=== PATIENT | male | born 1935 | race Caucasian/White ===

== ENCOUNTER 2016-05-27 11:34 | Emergency (ER) | payer MEDICARE, OTHER ==
[2016-05-27 11:51] VITALS: BP 138/67
--- NOTE | 2016-05-27 12:39 | EDM.PDOC ---
ED HPI HEADACHE COMPLAINT - General Chief Complaint: Headache Stated Complaint: Headache Time Seen by Provider: 05/27/16 12:00 Source of Information: Reports: Patient, Family, RN notes reviewed History Limitations: Reports: No limitations - History of Present Illness INITIAL COMMENTS - FREE TEXT/NARRATIVE: 81 year old male presents to the ED today with complaints of a two day history of headache. The headache started as a frontal headache and has moved to the left jehovah's witness. The left jehovah's witness is somewhat tender to touch. He does not usually experience headaches. He reports loss of vision on the right side only when looking at the TV. He says "There is 3 people standing there and the 3rd one on the right 'falls off.'" He describes this loss of vision on the right as intermittent and only when looking at the TV. I asked him various questions to get a better understanding of this but he is unable to offer any additional description or explanation. These vision changes started with the onset of the headache. He denies photophobia or phonophobia. He denies neck pain, fever, chills, body aches. No jaw pain. No weakness in extremities. He has no slurred speech, facial droop, or confusion according to patient or family. He had spinal surgery approximately [address] Barry in [place] for spinal stenosis. He has back pain located to the incision site and has intermittent radiation down his left leg which is not new. He also reports that his left leg will occasionally "stop working." This has been going on for quite some time related to his spinal stenosis. He has a follow-up appointment with his surgeon on 06/16/16. - Related Data Allergies/ADRs: Allergies Allergy/AdvReac Type Severity Reaction Status Date / Time codeine Allergy Other Verified 05/27/16 11:47 venom-honey bee Allergy Anaphylactic Verified 05/27/16 11:47 [bee venom (honey bee)] Shock venom-wasp [wasp venom] Allergy Itching Verified 05/27/16 11:47 Home Meds: Home Meds Aspirin [Adult Low Dose Aspirin EC] 81 mg PO DAILY 05/23/14 [History] Fish Oil/[place]-3 Fatty Acids [Fish Oil] 1 tab PO DAILY 05/23/14 [History] Multivitamin [Multivitamins] 1 tab PO DAILY 05/23/14 [History] Nitroglycerin [Nitrostat] 0.4 mg SL ASDIRECTED PRN 05/23/14 [History] Metoprolol Succinate [Toprol XL] 25 mg PO DAILY 07/18/14 [History] Aspirin [Halfprin] 81 mg PO DAILY 09/19/14 [History] Simvastatin [Zocor] 20 mg PO BEDTIME 09/19/14 [History] Acetaminophen [Tylenol Arthritis] 650 mg PO Q4H PRN 05/27/16 [History] Hydrocodone/Acetaminophen [Hydrocodon-Acetaminophen 5-325] 5 - 325 mg PO Q6H [History] predniSONE [Prednisone] 40 mg PO ASDIRECTED #10 tablet 05/27/16 [Rx] Past Medical History HEENT History: Reports: Cataract Cardiovascular History: Reports: Stents Musculoskeletal History: Reports: Back pain, chronic - Past Surgical History HEENT Surgical History: Reports: Tonsillectomy Social & Family History - Tobacco Use Smoking Status *Q: Never Smoker Used Tobacco, but Quit: No Month Tobacco Last Used: 20 - Recreational Drug Use Recreational Drug Use: No ED ROS GENERAL - Review of Systems Review Of Systems: See Below Constitutional: Reports: no symptoms. Denies: fever, chills HEENT: Reports: Vision change. Denies: Sinus problem, Vertigo Respiratory: Reports: No Symptoms. Denies: Shortness of Breath Cardiovascular: Reports: No symptoms. Denies: Chest pain GI/Abdominal: Reports: No symptoms. Denies: Abdominal pain, Nausea, Vomiting : Reports: no symptoms. Denies: incontinence Musculoskeletal: Reports: back pain. Denies: neck pain Neurological: Reports: Headache, Difficulty Walking (chronic - no new changes. recent surgery ), Weakness (left leg - chronic ). Denies: Confusion, Dizziness , Numbness, Tingling, Trouble Speaking - Physical Exam Exam: See Below Exam Limited By: No limitations General Appearance: alert, WD/WN, no apparent distress Eye Exam: right eye: vision changes (the patient describes loss of vision on right side, this is described as intermittent when watching TV. On exam today his peripheral vision is intact and symmetrical), bilateral eye: EOMI, normal inspection, PERRL Throat/Mouth: Normal inspection, Normal oropharynx, No airway compromise Head Exam: atraumatic, normocephalic Neck: normal inspection, supple, non-tender, full range of motion, other (no nuchal rigidity, active ROM without pain). No: tender midline Respiratory/Chest: no respiratory distress, lungs clear, normal breath sounds Cardiovascular: regular rate, rhythm Neuro Exam (Abbreviated): alert, oriented, normal cognition, no motor/sensory deficits, other (upper extremity strength is equal bilaterally. He has no facial droop. Speech is normal. Gait was not observed. He is ambulating with a walker. By history, his gait is unchanged. No tongue deviation. On palpation, he has tenderness over the left jehovah's witness. No unilateral changes on pulsation appreciated. ) Back Exam: other (surgical incision without signs of infection.) Psychiatric: flat affect Skin Exam: Warm, Dry, Intact Course - Vital Signs Last Recorded V/S: Last Vital Signs Temp 97.5 F 05/27/16 11:47 Pulse 75 05/27/16 11:47 Resp 18 05/27/16 11:47 BP 138/67 05/27/16 11:47 Pulse Ox 95 05/27/16 11:47 - Orders/Labs/Meds Orders: Active Orders 24 hr Category Date Time Status Vision Test [RC] ASDIRECTED Care 05/27/16 12:47 Active Labs: Laboratory Tests 05/27/16 05/27/16 05/27/16 Range/Units 12:36 12:36 12:36 WBC 8.36 (4.23-9.07) K/mm3 RBC 3.85 L (4.63-6.08) M/mm3 Hgb 12.0 L (13.7-17.5) gm/L Hct 37.8 L (40.1-51.0) % MCV 98.2 H (79.0-92.2) fl MCH 31.2 (25.7-32.2) pg MCHC 31.7 L (32.2-35.5) g/dl RDW Std Deviation 48.2 H (35.1-43.9) fL Plt Count 424 H (163-337) K/mm3 MPV 8.6 L (9.4-12.3) fl Neutrophils % (Manual) 69 H (40-60) % Band Neutrophils % 3 (0-10) % Lymphocytes % (Manual) 21 (20-40) % Atypical Lymphs % 0 % Monocytes % (Manual) 4 (2-10) % Eosinophils % (Manual) 3 (0.8-7.0) % Basophils % (Manual) 0 L (0.2-1.2) Platelet Estimate Adequate RBC Morph Comment Normal ESR 48 H (0-15) mm/hr C-Reactive Protein 1.9 H* (<1.0) mg/dL Meds: Medications Discontinued Medications Generic Name Dose Route Start Last Admin Trade Name Emanuel PRN Reason Stop Dose Admin Hydrocodone Bitart/Acetaminophen 1 tab 05/27/16 13:20 05/27/16 13:24 [place] 325-5 Mg PO 05/27/16 13:21 1 tab ONETIME ONE Administration - Re-Assessments/Exams Free Text/Narrative Re-Assessment/Exam: CT of the head was read by Dr. Rodriguez. No acute findings appreciated. Please see full report Labs reveal a normal WBC. ESR is elevated at 48 and CRP at 1.9 which is non- specific and expected considering he is 1 week post-op. 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 Biopsy is required for definitive diagnosis. I called and spoke to Neurologist pallet stone inserter, Dr. Phan, at [facility]. He recommends temporal artery biopsy within the next 1-2 weeks. He recommends prednisone 40mg every other day. He also recommends full fundoscopic exam. I then called and spoke to our general surgeon pallet stone inserter, Dr. Mancera, who performs outpatient temporal artery biopsy. She recommends biopsy within the next 1-2 weeks. We were able to schedule this for June 08, at 4:15 pm. I then called and spoke to the patient's PCP Dr. Eden Collier. She is agreeable with the plan of care including biopsy and prednisone 40mg every other day. The patient has an upcoming appointment with her next Tuesday so she will follow-up at that time. I will fax her a copy of today's records for her review. I thoroughly explained the suspected diagnosos, medication, and return precautions with the patient and his . Their daughter Kimberley was here earlier but left prior to test results. I phoned her and went over all the information with her as well. I strongly encouraged them to see their eye doctor [facility] for fundoscopic exam. I answered their questions to the best of my ability. This case and plan of care was supervised by ED Physician Dr. Gonzales. Departure - Departure Time of Disposition: 14:08 Disposition: Home, Self-Care 01 Condition: good Clinical Impression: Headache Qualifiers: Headache type: unspecified Headache chronicity pattern: acute headache Intractability: not intractable Qualified Code(s): R51 - Headache Prescriptions: predniSONE [Prednisone] 40 mg PO ASDIRECTED #10 tablet Instructions: General Headache Without Cause Referrals: Eden Collier MD [Primary Care Provider] - Forms: ED Department Discharge Additional Instructions: Your symptoms are concerning for the diagnosis of Temporal Arteritis. However, diagnosis is dependant on biopsy of the temporal artery. Follow-up with Dr. Collier next Tuesday as scheduled Prednisone 40mg every other day. Take first dose right away today. Then take in the morning starting on Tuesday. Your biopsy is scheduled for Wednesday June 08, [address] Mancera at the [facility] [place] here in [place]. Arrival to the [facility] [place] at 4:15 pm. Nothing to eat or drink after 8am the day of your biopsy. See your eye doctor as soon as possible for an eye exam. Return to ER with worsening headache, slurred speech, confusion, or any additional concerns. Continue hydrocodone as prescribed. - My Orders Last 24 Hours: My Active Orders 05/27/16 12:47 Vision Test [RC] ASDIRECTED - Assessment/Plan Last 24 Hours: My Active Orders 05/27/16 12:47 Vision Test [RC] ASDIRECTED
--- NOTE | 2016-05-27 13:16 | CT ---
Head CT Technique: Multiple axial sections through the brain were obtained. Intravenous contrast was not utilized. Comparison: No previous study. Findings: Ventricles along basal cisterns and sulci convexities are moderately prominent. Mild areas of diminished density is noted within the periventricular and subcortical white matter which is compatible with small vessel ischemic demyelination change. 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 Atrophy also noted within the cerebellum. No other abnormal parenchymal densities are seen. No evidence of intracranial hemorrhage. No midline shift or mass effect is seen. Atherosclerotic calcification is seen within the carotid siphon. Bone window settings were reviewed which shows the visualized sinuses to appear clear. No acute calvarial abnormality is seen. Previous rosa hole is noted within the right side. Impression: 1. Senescent change as described above. Previous surgery with bur hole on the right side. 2. Nothing acute is identified at this time on noncontrast head CT exam. Diagnostic code #2
[2016-05-27] MEDS ORDERED: Acetaminophen/HYDROcodone 325-5 MG Tab PO ONE (13:20)
== END 2016-05-27 14:38 | disposition home or self-care (01) ==
LOC: JD.ED 11:34
DX: R51 Headache (principal); Z95.5 Presence of coronary angioplasty implant and graft; Z98.890 Other specified postprocedural states; Z79.82 Long term (current) use of aspirin; Z79.899 Other long term (current) drug therapy; Z88.5 Allergy status to narcotic agent; Z91.030 Bee allergy status
CPT/HCPCS: 36415; 70450; 85025; 85652; 86140; 99284; A9270; 99283

== ENCOUNTER 2018-06-09 00:56 | Inpatient (IN) | payer MEDICARE, OTHER ==
[2018-06-09] MEDS ORDERED: Sodium Chloride 0.9% 10 ML Syringe FLUSH PRN (01:24)
[2018-06-09] MEDS ORDERED: Albuterol/Ipratropium 3.0-0.5 MG/3 ML Neb Soln NEB ONE (01:26)
[2018-06-09] MEDS ORDERED: cefTRIAXone 2 GM in Sodium Chloride 0.9% 100 ML IV ONE (01:28)
--- NOTE | 2018-06-09 02:52 | EDM.PDOC ---
ED HPI GENERAL MEDICAL PROBLEM - General Chief Complaint: Respiratory Problem Stated Complaint: FEVER/COLD SYMPTOMS Time Seen by Provider: 06/09/18 01:17 Source of Information: Reports: Patient, Family History Limitations: Reports: No Limitations - History of Present Illness INITIAL COMMENTS - FREE TEXT/NARRATIVE: The patient presents with a cough, congestion, runny nose, fever and shortness of breath. This has been going on for a few days and he was seen at the walk in clinic yesterday. They checked him for influenza and that was negative. The did a CXR and that looked good. They did start him on levaquin for suspected pneumonia. He continued to have a temperature this evening and shortness of breath. When arrived here his oxygen saturations were 86%. He does not have any history of asthma or COPD. He denies chest pain, abdominal pain, nausea or vomiting. Onset: Gradual Duration: Day(s): Severity: Moderate Improves with: Reports: None Worsens with: Reports: None Associated Symptoms: Reports: Cough, Fever/Chills, Shortness of Breath. Denies : Chest Pain, Headaches, Nausea/Vomiting - Related Data Allergies Allergy/AdvReac Type Severity Reaction Status Date / Time codeine Allergy Other Verified 06/09/18 01:04 venom-honey bee Allergy Anaphylactic Verified 06/09/18 01:04 [bee venom (honey bee)] Shock venom-wasp [wasp venom] Allergy Itching Verified 06/09/18 01:04 Home Meds: Home Meds Fish Oil/[place]-3 Fatty Acids [Fish Oil] 1,200 mg PO DAILY 05/23/14 [History] Aspirin [Halfprin] 81 mg PO DAILY 09/19/14 [History] Simvastatin [Zocor] 40 mg PO BEDTIME 09/19/14 [History] Metoprolol Succinate 25 mg PO DAILY 06/09/18 [History] Warfarin [Coumadin] 2.5 mg PO SUTUWETHSA 06/09/18 [History] Warfarin [Coumadin] 5 mg PO MOFR 06/09/18 [History] levoFLOXacin [Levaquin] 750 mg PO DAILY 06/09/18 [History] Past Medical History HEENT History: Reports: Cataract Cardiovascular History: Reports: Afib, Stents Respiratory History: Reports: Sleep Apnea Gastrointestinal History: Reports: Other (See Below) Other Gastrointestinal History: Inguinal hernia Musculoskeletal History: Reports: Back Pain, Chronic Neurological History: Reports: Other (See Below) Other Neuro History: Brain bleed - Past Surgical History HEENT Surgical History: Reports: Cataract Surgery, Tonsillectomy Social & Family History - Tobacco Use Smoking Status *Q: Never Smoker - Recreational Drug Use Recreational Drug Use: No ED ROS GENERAL - Review of Systems Review Of Systems: See Below Constitutional: Reports: Fever, Chills HEENT: Reports: Other (Congestion and runny nose) Respiratory: Reports: Cough Cardiovascular: Reports: No Symptoms Endocrine: Reports: No Symptoms GI/Abdominal: Reports: No Symptoms, Mucous in Stool Musculoskeletal: Reports: No Symptoms ED EXAM, GENERAL - Physical Exam Exam: See Below Exam Limited By: No Limitations General Appearance: Alert, No Apparent Distress Ears: Normal External Exam Nose: Normal Inspection Head: Atraumatic, Normocephalic Neck: Normal Inspection Respiratory/Chest: No Respiratory Distress, Decreased Breath Sounds, Rhonchi Cardiovascular: Regular Rate, Rhythm, No Edema, No Murmur GI/Abdominal: Soft, Non-Tender, No Organomegaly, No Mass Back Exam: Normal Inspection Extremities: Normal Inspection Neurological: Alert, Oriented, No Motor/Sensory Deficits Course - Vital Signs Last Recorded V/S: Last Vital Signs Temp 99.9 F 06/09/18 01:04 Pulse 78 06/09/18 01:04 Resp 18 06/09/18 01:04 BP 120/53 L 06/09/18 01:04 Pulse Ox 94 L 06/09/18 01:32 - Orders/Labs/Meds Orders: Active Orders 24 hr Category Date Time Status Oxygen Therapy [RC] PRN Care 06/09/18 01:24 Active Peripheral IV Care [RC] . DIRECTED Care 06/09/18 01:26 Active RT Aerosol Therapy [RC] ASDIRECTED Care 06/09/18 01:26 Active Chest 1V Frontal [CR] Stat Exams 06/09/18 01:24 Taken C-REACTIVE PROTEIN [CHEM] Urgent Lab 06/09/18 01:35 Results COMPREHENSIVE METABOLIC PN,CMP [CHEM] Urgent Lab 06/09/18 01:35 Results CULTURE BLOOD [BC] Stat Lab 06/09/18 01:35 Received CULTURE BLOOD [BC] Stat Lab 06/09/18 01:45 Received MYCOPLASMA PNEUMONIAE IGM AB [CHEM] Stat Lab 06/09/18 01:35 Results Sodium Chloride 0.9% [Saline Flush] Med 06/09/18 01:24 Active 10 ml FLUSH ASDIRECTED PRN Blood Culture x2 Reflex Set [OM.PC] Stat Ot 06/09/18 01:24 Ordered Peripheral IV Insertion Adult [OM.PC] Stat Ot 06/09/18 01:24 Ordered Medication Orders Sodium Chloride (Saline Flush) 10 ml FLUSH ASDIRECTED PRN PRN Reason: Keep Vein Open Last Admin: 06/09/18 01:38 Dose: 10 ml Labs: Laboratory Tests 06/09/18 06/09/18 06/09/18 Range/Units 01:35 01:35 01:35 WBC 9.71 H (4.23-9.07) K/mm3 RBC 4.39 L (4.63-6.08) M/mm3 Hgb 13.5 L D (13.7-17.5) gm/L Hct 41.8 (40.1-51.0) % MCV 95.2 H (79.0-92.2) fl MCH 30.8 (25.7-32.2) pg MCHC 32.3 (32.2-35.5) g/dl RDW Std Deviation 47.4 H (35.1-43.9) fL Plt Count 218 (163-337) K/mm3 MPV 9.0 L (9.4-12.3) fl Neut % (Auto) 70.9 H (34.0-67.9) % Lymph % (Auto) 16.1 L (21.8-53.1) % [place] % (Auto) 12.2 (5.3-12.2) % Eos % (Auto) 0.5 L (0.8-7.0) Baso % (Auto) 0.1 (0.1-1.2) % Neut # (Auto) 6.89 H (1.78-5.38) K/mm3 Lymph # (Auto) 1.56 (1.32-3.57) K/mm3 [place] # (Auto) 1.18 H (0.30-0.82) K/mm3 Eos # (Auto) 0.05 (0.04-0.54) K/mm3 Baso # (Auto) 0.01 (0.01-0.08) K/mm3 PT 26.9 H (9.5-12.1) SECONDS INR 2.51 Sodium 135 L (136-145) mEq/L Potassium 4.0 (3.5-5.1) mEq/L Chloride 101 (98-107) mEq/L Carbon Dioxide 26 (21-32) mEq/L Anion Gap 12.0 (5-15) BUN 21 H (7-18) mg/dL Creatinine 1.2 (0.7-1.3) mg/dL Est Cr Clr Drug Dosing TNP Estimated GFR (MDRD) 58 (>60) mL/min BUN/Creatinine Ratio 17.5 (14-18) Glucose 130 H (83-115) mg/dL Lactic Acid (0.4-2.0) mmol/L Calcium 8.7 (8.5-10.1) mg/dL Total Bilirubin 0.9 (0.2-1.0) mg/dL AST 38 H (15-37) U/L ALT 36 (16-63) U/L Alkaline Phosphatase 80 (46-116) U/L C-Reactive Protein 2.2 H* (<1.0) mg/dL Total Protein 6.9 (6.4-8.2) g/dl Albumin 3.5 (3.4-5.0) g/dl Globulin 3.4 gm/dL Albumin/Globulin Ratio 1.0 (1-2) 06/09/18 Range/Units 01:35 WBC (4.23-9.07) K/mm3 RBC (4.63-6.08) M/mm3 Hgb (13.7-17.5) gm/L Hct (40.1-51.0) % MCV (79.0-92.2) fl MCH (25.7-32.2) pg MCHC (32.2-35.5) g/dl RDW Std Deviation (35.1-43.9) fL Plt Count (163-337) K/mm3 MPV (9.4-12.3) fl Neut % (Auto) (34.0-67.9) % Lymph % (Auto) (21.8-53.1) % [place] % (Auto) (5.3-12.2) % Eos % (Auto) (0.8-7.0) Baso % (Auto) (0.1-1.2) % Neut # (Auto) (1.78-5.38) K/mm3 Lymph # (Auto) (1.32-3.57) K/mm3 [place] # (Auto) (0.30-0.82) K/mm3 Eos # (Auto) (0.04-0.54) K/mm3 Baso # (Auto) (0.01-0.08) K/mm3 PT (9.5-12.1) SECONDS INR Sodium (136-145) mEq/L Potassium (3.5-5.1) mEq/L Chloride (98-107) mEq/L Carbon Dioxide (21-32) mEq/L Anion Gap (5-15) BUN (7-18) mg/dL Creatinine (0.7-1.3) mg/dL Est Cr Clr Drug Dosing Estimated GFR (MDRD) (>60) mL/min BUN/Creatinine Ratio (14-18) Glucose (83-115) mg/dL Lactic Acid 1.5 (0.4-2.0) mmol/L Calcium (8.5-10.1) mg/dL Total Bilirubin (0.2-1.0) mg/dL AST (15-37) U/L ALT (16-63) U/L Alkaline Phosphatase (46-116) U/L C-Reactive Protein (<1.0) mg/dL Total Protein (6.4-8.2) g/dl Albumin (3.4-5.0) g/dl Globulin gm/dL Albumin/Globulin Ratio (1-2) Meds: Medications Generic Name Dose Route Start Last Admin Trade Name Freq PRN Reason Stop Dose Admin Sodium Chloride 10 ml 06/09/18 01:24 06/09/18 01:38 Saline Flush FLUSH 10 ml ASDIRECTED PRN Administration Keep Vein Open Discontinued Medications Generic Name Dose Route Start Last Admin Trade Name Freq PRN Reason Stop Dose Admin Albuterol/Ipratropium 3 ml 06/09/18 01:26 06/09/18 01:32 Duoneb 3.0-0.5 Mg/3 Ml NEB 06/09/18 01:27 3 ml ONETIME ONE Administration Ceftriaxone Sodium 2 gm/ 100 mls @ 200 mls/hr 06/09/18 01:28 06/09/18 01:51 Sodium Chloride IV 06/09/18 01:57 200 mls/hr ONETIME ONE Administration - Re-Assessments/Exams Free Text/Narrative Re-Assessment/Exam: 06/09/18 02:52 I ordered an IV saline lock, blood cultures, CXR, labs, duoneb and rocephin 2 grams IV. His CXR shows COPD changes with no infiltrate. His WBC is slightly elevated at 9.71. His Hgb was 13.5. His INR is therapeutic at 2.51. His Na is a little low at 135. His creatinine is 1.2. His glucose is 130. His lactic acid is 1.5. and normal. His AST is slightly elevated at 38. His CRP is elevated at 2.2. Clinically he has pneumonia with hypoxia. I am not seeing changes on his CXR yet. I feel he needs to be admitted. 06/09/18 02:56 I will do some bridging orders for the hospitalist service. Departure - Departure Time of Disposition: 03:00 Disposition: Admitted As Inpatient 66 Condition: Fair Clinical Impression: Hypoxia Pneumonia Qualifiers: Pneumonia type: due to unspecified organism Laterality: unspecified laterality Lung location: unspecified part of lung Qualified Code(s): J18.9 - Pneumonia, unspecified organism - Discharge Information Referrals: Eden Collier MD [Primary Care Provider] - - My Orders Last 24 Hours: My Active Orders 06/09/18 01:24 Oxygen Therapy [RC] PRN Chest 1V Frontal [CR] Stat Sodium Chloride 0.9% [Saline Flush] 10 ml FLUSH ASDIRECTED PRN Blood Culture x2 Reflex Set [OM.PC] Stat Peripheral IV Insertion Adult [OM.PC] Stat 06/09/18 01:26 Peripheral IV Care [RC] . DIRECTED RT Aerosol Therapy [RC] ASDIRECTED 06/09/18 01:35 C-REACTIVE PROTEIN [CHEM] Urgent COMPREHENSIVE METABOLIC PN,CMP [CHEM] Urgent CULTURE BLOOD [BC] Stat MYCOPLASMA PNEUMONIAE IGM AB [CHEM] Stat 06/09/18 01:45 CULTURE BLOOD [BC] Stat - Assessment/Plan Last 24 Hours: My Active Orders 06/09/18 01:24 Oxygen Therapy [RC] PRN Chest 1V Frontal [CR] Stat Sodium Chloride 0.9% [Saline Flush] 10 ml FLUSH ASDIRECTED PRN Blood Culture x2 Reflex Set [OM.PC] Stat Peripheral IV Insertion Adult [OM.PC] Stat 06/09/18 01:26 Peripheral IV Care [RC] . DIRECTED RT Aerosol Therapy [RC] ASDIRECTED 06/09/18 01:35 C-REACTIVE PROTEIN [CHEM] Urgent COMPREHENSIVE METABOLIC PN,CMP [CHEM] Urgent CULTURE BLOOD [BC] Stat MYCOPLASMA PNEUMONIAE IGM AB [CHEM] Stat 06/09/18 01:45 CULTURE BLOOD [BC] Stat
[2018-06-09] MEDS ORDERED: Acetaminophen 325 MG Tab PO PRN (04:54)
--- NOTE | 2018-06-09 06:27 | CR ---
Chest: Frontal view of the chest was obtained. Comparison: No prior chest x-ray. Heart size is normal. Tortuous thoracic aorta is seen. Lungs are clear. Bony structures are osteopenic. Impression: 1. Nothing acute is seen on frontal chest x-ray. Diagnostic code #1
[2018-06-09] MEDS: Albuterol/Ipratropium 3.0-0.5 MG/3 ML Neb Soln NEB SCH ×3 (08:05→20:25)
--- NOTE | 2018-06-09 16:35 | PCM.HP ---
H&P History of Present Illness - General Date of Service: 06/09/18 Admit Problem/Dx: Admission Diagnosis/Problem Admission Diagnosis/Problem Pneumonia - History of Present Illness Initial Comments - Free Text/Narative: 83 yo with h/o PAF, loop recorder admitted through ED with 3 day h/o cough, chills, on the day of admission had temp 102 according to , in ED SaO2 at 86 %. the day prior was started on abx as OP. Admitted for further treatment. - Related Data Allergies/Adverse Reactions: Allergies Allergy/AdvReac Type Severity Reaction Status Date / Time codeine Allergy Other Verified 06/09/18 01:04 venom-honey bee Allergy Anaphylactic Verified 06/09/18 01:04 [bee venom (honey bee)] Shock venom-wasp [wasp venom] Allergy Itching Verified 06/09/18 01:04 Home Medications: Home Meds Fish Oil/[place]-3 Fatty Acids [Fish Oil] 1,200 mg PO DAILY 05/23/14 [History] Aspirin [Halfprin] 81 mg PO DAILY 09/19/14 [History] Simvastatin [Zocor] 40 mg PO BEDTIME 09/19/14 [History] Metoprolol Succinate 25 mg PO DAILY 06/09/18 [History] Metoprolol Succinate [Toprol XL] 12.5 mg PO 1800 06/09/18 [History] Warfarin [Coumadin] 2.5 mg PO SUTUWETHSA 06/09/18 [History] Warfarin [Coumadin] 5 mg PO MOFR 06/09/18 [History] levoFLOXacin [Levaquin] 750 mg PO DAILY 06/09/18 [History] Past Medical History HEENT History: Reports: Cataract Cardiovascular History: Reports: Afib, Stents, Other (See Below) Other Cardiovascular History: varicise veins Respiratory History: Reports: Sleep Apnea Other Respiratory History: 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 Gastrointestinal History: Reports: Other (See Below) Other Gastrointestinal History: Inguinal hernia Genitourinary History: Reports: Other (See Below) Other Genitourinary History: urinary frequency Musculoskeletal History: Reports: Back Pain, Chronic Neurological History: Reports: CVA, Other (See Below) Other Neuro History: Brain bleed - Infectious Disease History Infectious Disease History: Reports: Chicken Pox - Past Surgical History HEENT Surgical History: Reports: Cataract Surgery, Tonsillectomy Other Cardiovascular Surgeries/Procedures: patient reports metal in heart but not pacemaker Respiratory Surgical History: Reports: None GI Surgical History: Reports: None Male Surgical History: Reports: None Neurological Surgical History: Reports: Lumbar Spine Other Neurological Surgeries/Procedures: surgery on lower back Musculoskeletal Surgical History: Reports: None Other Musculoskeletal Surgeries/Procedures:: rods in back Social & Family History - Family History Family Medical History: Noncontributory - Tobacco Use Smoking Status *Q: Former Smoker Years of Tobacco use: 20 Packs/Tins Daily: 0.5 Used Tobacco, but Quit: Yes Month/Year Tobacco Last Used: 5 years ago Second Hand Smoke Exposure: No - Caffeine Use Caffeine Use: Reports: None - Recreational Drug Use Recreational Drug Use: No H&P Review of Systems - Review of Systems: Review Of Systems: See Below General: Reports: Fever, Chills, Weakness, Fatigue HEENT: Denies: Sinus Congestion, Vertigo Pulmonary: Reports: Cough. Denies: Shortness of Breath, Wheezing, Hemoptysis Cardiovascular: Denies: Chest Pain, Palpitations Gastrointestinal: Denies: Abdominal Pain, Diarrhea, Nausea, Vomiting Genitourinary: Reports: No Symptoms Musculoskeletal: Denies: Muscle Stiffness Skin: Denies: Cyanosis, Erythema Psychiatric: Denies: Confusion, Anxiety Neurological: Denies: Seizure, Syncope Hematologic/Lymphatic: Denies: Easy Bleeding, Easy Bruising Exam - Exam Exam: See Below - Vital Signs Vital Signs: Last Vital Signs Temp 98.1 F 06/09/18 15:44 Pulse 70 06/09/18 15:44 Resp 17 06/09/18 15:44 BP 123/77 06/09/18 15:44 Pulse Ox 94 L 06/09/18 15:44 Weight: 185 lb 7.52 oz - Exam Quality Assessment: No: Supplemental Oxygen General: Alert, Oriented, Cooperative HEENT: Conjunctiva Clear, EOMI Neck: Supple, Trachea Midline. No: Lymphadenopathy Lungs: No: Clear to Auscultation, Rhonchi, Wheezing Cardiovascular: Regular Rate, Regular Rhythm. No: Gallop/S3 GI/Abdominal Exam: Normal Bowel Sounds, Soft, Non-Tender Extremities: Pedal Edema. No: Radha's Sign Peripheral Pulses: 2+: Posterior Tibial (L), Posterior Tibial (R) Neuro Extensive - Mental Status: Alert, Oriented x3, Normal Mood/Affect, Normal Cognition Neuro Extensive - Motor, Sensory, Reflexes: CN II-XII Intact, Normal Reflexes. No: Motor/Sensory Deficits Psychiatric: Alert, Normal Affect. No: Depressed, Suicidal Ideation, Homicidal Ideation - Patient Data Lab Results Last 24 hrs: Laboratory Results - last 24 hr 06/09/18 06/09/18 06/09/18 Range/Units 01:35 01:35 01:35 WBC 9.71 H (4.23-9.07) K/mm3 RBC 4.39 L (4.63-6.08) M/mm3 Hgb 13.5 L D (13.7-17.5) gm/L Hct 41.8 (40.1-51.0) % MCV 95.2 H (79.0-92.2) fl MCH 30.8 (25.7-32.2) pg MCHC 32.3 (32.2-35.5) g/dl RDW Std Deviation 47.4 H (35.1-43.9) fL Plt Count 218 (163-337) K/mm3 MPV 9.0 L (9.4-12.3) fl Neut % (Auto) 70.9 H (34.0-67.9) % Lymph % (Auto) 16.1 L (21.8-53.1) % [place] % (Auto) 12.2 (5.3-12.2) % Eos % (Auto) 0.5 L (0.8-7.0) Baso % (Auto) 0.1 (0.1-1.2) % Neut # (Auto) 6.89 H (1.78-5.38) K/mm3 Lymph # (Auto) 1.56 (1.32-3.57) K/mm3 [place] # (Auto) 1.18 H (0.30-0.82) K/mm3 Eos # (Auto) 0.05 (0.04-0.54) K/mm3 Baso # (Auto) 0.01 (0.01-0.08) K/mm3 PT 26.9 H (9.5-12.1) SECONDS INR 2.51 Sodium 135 L (136-145) mEq/L Potassium 4.0 (3.5-5.1) mEq/L Chloride 101 (98-107) mEq/L Carbon Dioxide 26 (21-32) mEq/L Anion Gap 12.0 (5-15) BUN 21 H (7-18) mg/dL Creatinine 1.2 (0.7-1.3) mg/dL Est Cr Clr Drug Dosing TNP Estimated GFR (MDRD) 58 (>60) mL/min BUN/Creatinine Ratio 17.5 (14-18) Glucose 130 H (83-115) mg/dL Lactic Acid (0.4-2.0) mmol/L Calcium 8.7 (8.5-10.1) mg/dL Total Bilirubin 0.9 (0.2-1.0) mg/dL AST 38 H (15-37) U/L ALT 36 (16-63) U/L Alkaline Phosphatase 80 (46-116) U/L C-Reactive Protein 2.2 H* (<1.0) mg/dL Total Protein 6.9 (6.4-8.2) g/dl Albumin 3.5 (3.4-5.0) g/dl Globulin 3.4 gm/dL Albumin/Globulin Ratio 1.0 (1-2) Mycoplasma pneumon IgM Negative (NEGATIVE) 06/09/18 Range/Units 01:35 WBC (4.23-9.07) K/mm3 RBC (4.63-6.08) M/mm3 Hgb (13.7-17.5) gm/L Hct (40.1-51.0) % MCV (79.0-92.2) fl MCH (25.7-32.2) pg MCHC (32.2-35.5) g/dl RDW Std Deviation (35.1-43.9) fL Plt Count (163-337) K/mm3 MPV (9.4-12.3) fl Neut % (Auto) (34.0-67.9) % Lymph % (Auto) (21.8-53.1) % [place] % (Auto) (5.3-12.2) % Eos % (Auto) (0.8-7.0) Baso % (Auto) (0.1-1.2) % Neut # (Auto) (1.78-5.38) K/mm3 Lymph # (Auto) (1.32-3.57) K/mm3 [place] # (Auto) (0.30-0.82) K/mm3 Eos # (Auto) (0.04-0.54) K/mm3 Baso # (Auto) (0.01-0.08) K/mm3 PT (9.5-12.1) SECONDS INR Sodium (136-145) mEq/L Potassium (3.5-5.1) mEq/L Chloride (98-107) mEq/L Carbon Dioxide (21-32) mEq/L Anion Gap (5-15) BUN (7-18) mg/dL Creatinine (0.7-1.3) mg/dL Est Cr Clr Drug Dosing Estimated GFR (MDRD) (>60) mL/min BUN/Creatinine Ratio (14-18) Glucose (83-115) mg/dL Lactic Acid 1.5 (0.4-2.0) mmol/L Calcium (8.5-10.1) mg/dL Total Bilirubin (0.2-1.0) mg/dL AST (15-37) U/L ALT (16-63) U/L Alkaline Phosphatase (46-116) U/L C-Reactive Protein (<1.0) mg/dL Total Protein (6.4-8.2) g/dl Albumin (3.4-5.0) g/dl Globulin gm/dL Albumin/Globulin Ratio (1-2) Mycoplasma pneumon IgM (NEGATIVE) Result Diagrams: 06/09/18 01:35 06/09/18 01:35 - Problem List (1) Hypoxia SNOMED Code(s): 610162930 ICD Code: R09.02 - HYPOXEMIA Status: Acute Priority: High Current Visit : Yes (2) Pneumonia SNOMED Code(s): 589129052 ICD Code: J18.9 - PNEUMONIA, UNSPECIFIED ORGANISM Status: Acute Priority : High Current Visit: Yes Qualifiers: Pneumonia type: due to unspecified organism Laterality: unspecified laterality Lung location: unspecified part of lung Qualified Code(s): J18.9 - Pneumonia, unspecified organism Problem List Initiated/Reviewed/Updated: Yes Orders Last 24hrs: Active Orders 24 hr Category Date Time Status Patient Status [ADT] Routine ADT 06/09/18 03:14 Active Bedrest Bathroom Privileges [RC] ASDIRECTED Care 06/09/18 04:50 Active Oxygen Therapy [RC] PRN Care 06/09/18 01:24 Active RT Aerosol Therapy [RC] ASDIRECTED Care 06/09/18 01:26 Active Heart Healthy Diet [DIET] Diet 06/09/18 Breakfast Active CULTURE BLOOD [BC] Stat Lab 06/09/18 01:35 Received CULTURE BLOOD [BC] Stat Lab 06/09/18 01:45 Received Acetaminophen [Tylenol] Med 06/09/18 04:54 Active 650 mg PO Q4H PRN Albuterol/Ipratropium [DuoNeb 3.0-0.5 MG/3 ML] Med 06/09/18 09:00 Active 3 ml NEB Q6HRRT Sodium Chloride 0.9% [Saline Flush] Med 06/09/18 01:24 Active 10 ml FLUSH ASDIRECTED PRN cefTRIAXone [Rocephin] 2 gm Med 06/10/18 01:00 Active Sodium Chloride 0.9% [Normal Saline] 100 ml IV Q24H Blood Culture x2 Reflex Set [OM.PC] Stat Oth 06/09/18 01:24 Ordered Peripheral IV Insertion Adult [OM.PC] Stat Oth 06/09/18 01:24 Ordered Resuscitation Status Routine Resus Stat 06/09/18 04:08 Ordered Medication Orders Acetaminophen (Tylenol) 650 mg PO Q4H PRN PRN Reason: Pain/Fever Albuterol/Ipratropium (Duoneb 3.0-0.5 Mg/3 Ml) 3 ml NEB Q6HRRT EDI Stop: 06/10/18 03:01 Last Admin: 06/09/18 15:05 Dose: 3 ml Admin: 06/09/18 08:05 Dose: 3 ml Ceftriaxone Sodium 2 gm/ (Sodium Chloride) 100 mls @ 200 mls/hr IV Q24H EDI Sodium Chloride (Saline Flush) 10 ml FLUSH ASDIRECTED PRN PRN Reason: Keep Vein Open Last Admin: 06/09/18 01:38 Dose: 10 ml Assessment/Plan Comment:: 1. Supplemental O2, now improved to RA. 2. Empyric abx. 3. DVTP - on chronic anticoagulation.
[2018-06-09] MEDS ORDERED: Warfarin 5 MG Tab PO SCH (18:00)
[2018-06-09] MEDS ORDERED: cefTRIAXone 2 GM in Sodium Chloride 0.9% 100 ML IV SCH (21:00)
[2018-06-09] MEDS ORDERED: Simvastatin 40 MG Tab PO SCH (21:00)
[2018-06-10] MEDS ORDERED: cefTRIAXone 2 GM in Sodium Chloride 0.9% 100 ML IV SCH (01:00)
[2018-06-10] MEDS: Albuterol/Ipratropium 3.0-0.5 MG/3 ML Neb Soln NEB SCH (03:30)
[2018-06-10 08:37] VITALS: BP 110/65
[2018-06-10] MEDS ORDERED: Metoprolol Succinate 25 MG Tab.ER PO SCH (09:00)
[2018-06-10] MEDS ORDERED: Aspirin 81 MG Tab.EC PO SCH (09:00)
--- NOTE | 2018-06-10 10:13 | PCM.DCSUM1 ---
Discharge Summary - Hospital Course HPI Initial Comments: 83 yo with h/o PAF, loop recorder admitted through ED with 3 day h/o cough, chills, on the day of admission had temp 102 according to , in ED SaO2 at 86 %. the day prior was started on abx as OP. Admitted for further treatment. 06/10/18, improved to baseline, being discharged to home with 2 week f/u with PCP. Diagnosis: Stroke: No - Discharge Data Discharge Date: 06/10/18 Discharge Disposition: Home, Self-Care 01 Condition: Good - Discharge Diagnosis/Problem(s) (1) Hypoxia SNOMED Code(s): 207694181 ICD Code: R09.02 - HYPOXEMIA Status: Acute Priority: High Current Visit : Yes (2) Pneumonia SNOMED Code(s): 600382675 ICD Code: J18.9 - PNEUMONIA, UNSPECIFIED ORGANISM Status: Acute Priority : High Current Visit: Yes Qualifiers: Pneumonia type: due to unspecified organism Laterality: unspecified laterality Lung location: unspecified part of lung Qualified Code(s): J18.9 - Pneumonia, unspecified organism - Patient Instructions Diet: Heart Healthy Diet Activity: As Tolerated - Discharge Plan Prescriptions/Med Rec: Amoxicillin/Clavulanate K [Augmentin 875-125 MG] 1 tab PO BID #10 tablet Home Medications: Home Meds Fish Oil/[place]-3 Fatty Acids [Fish Oil] 1,200 mg PO DAILY 05/23/14 [History] Simvastatin [Zocor] 40 mg PO BEDTIME 09/19/14 [History] Metoprolol Succinate 25 mg PO DAILY 06/09/18 [History] Warfarin [Coumadin] 2.5 mg PO SUTUWETHSA 06/09/18 [History] Warfarin [Coumadin] 5 mg PO MOFR 06/09/18 [History] Acetaminophen [Tylenol] 650 mg PO Q4H PRN tablet 06/10/18 [Rx] Amoxicillin/Clavulanate K [Augmentin 875-125 MG] 1 tab PO BID #10 tablet [Rx] Aspirin [Halfprin] 81 mg PO DAILY tab.ec 06/10/18 [Rx] Warfarin [Coumadin] 2.5 mg PO SuTuWeThSa@1800 tablet 06/10/18 [Rx] Patient Handouts: Community-Acquired Pneumonia, Adult, [id number] Forms: ED Department Discharge Referrals: Eden Collier MD [Primary Care Provider] - - Discharge Summary/Plan Comment DC Time >30 min.: No - General Info Date of Service: 06/10/18 Admission Dx/Problem (Free Text: Admission Diagnosis/Problem Admission Diagnosis/Problem Pneumonia - Patient Data Vitals - Most Recent: Last Vital Signs Temp 98.2 F 06/10/18 08:35 Pulse 65 06/10/18 08:36 Resp 16 06/10/18 08:35 BP 110/65 06/10/18 08:36 Pulse Ox 95 06/10/18 08:35 Weight - Most Recent: 183 lb I&O - Last 24 hours: Intake & Output 06/09/18 06/10/18 06/10/18 19:59 03:59 11:59 Intake Total 720 500 Output Total 550 Balance 170 500 Lab Results - Last 24 hrs: Laboratory Results - last 24 hr 06/10/18 06/10/18 06/10/18 Range/Units 06:12 06:12 06:12 WBC 7.19 (4.23-9.07) K/mm3 RBC 4.33 L (4.63-6.08) M/mm3 Hgb 13.5 L (13.7-17.5) gm/L Hct 41.8 (40.1-51.0) % MCV 96.5 H (79.0-92.2) fl MCH 31.2 (25.7-32.2) pg MCHC 32.3 (32.2-35.5) g/dl RDW Std Deviation 49.2 H (35.1-43.9) fL Plt Count 211 (163-337) K/mm3 MPV 9.3 L (9.4-12.3) fl Neut % (Auto) 53.5 (34.0-67.9) % Lymph % (Auto) 31.2 (21.8-53.1) % [place] % (Auto) 12.4 H (5.3-12.2) % Eos % (Auto) 2.5 (0.8-7.0) Baso % (Auto) 0.3 (0.1-1.2) % Neut # (Auto) 3.85 (1.78-5.38) K/mm3 Lymph # (Auto) 2.24 (1.32-3.57) K/mm3 [place] # (Auto) 0.89 H (0.30-0.82) K/mm3 Eos # (Auto) 0.18 (0.04-0.54) K/mm3 Baso # (Auto) 0.02 (0.01-0.08) K/mm3 PT 16.2 H (9.5-12.1) SECONDS INR 1.50 Sodium 139 (136-145) mEq/L Potassium 3.9 (3.5-5.1) mEq/L Chloride 103 (98-107) mEq/L Carbon Dioxide 28 (21-32) mEq/L Anion Gap 11.9 (5-15) BUN 14 (7-18) mg/dL Creatinine 0.9 (0.7-1.3) mg/dL Est Cr Clr Drug Dosing 60.17 mL/min Estimated GFR (MDRD) > 60 (>60) mL/min BUN/Creatinine Ratio 15.6 (14-18) Glucose 105 (83-115) mg/dL Calcium 8.8 (8.5-10.1) mg/dL Troponin I < 0.017 (0.00-0.056) ng/mL KALYN Results - Last 24 hrs: Microbiology 06/09/18 01:45 Aerobic Blood Culture - Preliminary Blood - Venous - Lab Draw NO GROWTH AFTER 1 DAY Anaerobic Blood Culture - Preliminary NO GROWTH AFTER 1 DAY 06/09/18 01:35 Aerobic Blood Culture - Preliminary Blood - Venous NO GROWTH AFTER 1 DAY Anaerobic Blood Culture - Preliminary NO GROWTH AFTER 1 DAY Med Orders - Current: Current Medications Acetaminophen (Tylenol) 650 mg PO Q4H PRN PRN Reason: Pain/Fever Aspirin (Halfprin) 81 mg PO DAILY [facility] Last Admin: 06/10/18 08:34 Dose: 81 mg Ceftriaxone Sodium 2 gm/ (Sodium Chloride) 100 mls @ 200 mls/hr IV Q24H [facility] Last Admin: 06/10/18 02:23 Dose: 200 mls/hr Metoprolol Succinate (Toprol Xl) 25 mg PO DAILY [facility] Last Admin: 06/10/18 08:36 Dose: 25 mg Simvastatin (Zocor) 40 mg PO BEDTIME [facility] Last Admin: 06/09/18 21:15 Dose: 40 mg Sodium Chloride (Saline Flush) 10 ml FLUSH ASDIRECTED PRN PRN Reason: Keep Vein Open Last Admin: 06/09/18 01:38 Dose: 10 ml Warfarin Sodium (Coumadin) 2.5 mg PO SuTuWeThSa@1800 EDI Warfarin Sodium (Coumadin) 5 mg PO MoFr@1800 EDI Last Admin: 06/09/18 19:09 Dose: 5 mg Discontinued Medications Albuterol/Ipratropium (Duoneb 3.0-0.5 Mg/3 Ml) 3 ml NEB ONETIME ONE Stop: 06/09/18 01:27 Last Admin: 06/09/18 01:32 Dose: 3 ml Albuterol/Ipratropium (Duoneb 3.0-0.5 Mg/3 Ml) 3 ml NEB Q6HRRT [facility] Stop: 06/10/18 03:01 Last Admin: 06/10/18 03:30 Dose: 3 ml Ceftriaxone Sodium 2 gm/ (Sodium Chloride) 100 mls @ 200 mls/hr IV ONETIME ONE Stop: 06/09/18 01:57 Last Admin: 06/09/18 01:51 Dose: 200 mls/hr Ceftriaxone Sodium 2 gm/ (Sodium Chloride) 100 mls @ 200 mls/hr IV Q24H EDI - Exam Physical Findings Comments:: General: Alert, Oriented, Cooperative HEENT: Conjunctiva Clear, EOMI Neck: Supple, Trachea Midline. No: Lymphadenopathy Lungs: No: Clear to Auscultation, Rhonchi, Wheezing Cardiovascular: Regular Rate, Regular Rhythm. No: Gallop/S3 GI/Abdominal Exam: Normal Bowel Sounds, Soft, Non-Tender Extremities: Pedal Edema. No: Radha's Sign Peripheral Pulses: 2+: Posterior Tibial (L), Posterior Tibial (R) Neuro Extensive - Mental Status: Alert, Oriented x3, Normal Mood/Affect, Normal Cognition Neuro Extensive - Motor, Sensory, Reflexes: CN II-XII Intact, Normal Reflexes. No: Motor/Sensory Deficits Psychiatric: Alert, Normal Affect. No: Depressed, Suicidal Ideation, Homicidal Ideation
[2018-06-10] MEDS ORDERED: Warfarin 2.5 MG Tab PO SCH (18:00)
== END 2018-06-10 12:24 | disposition home or self-care (01) | DRG 195 ==
LOC: JD.ED 00:56 → JD.MS 03:14
PROVIDERS: ADMIT Internal Medicine; ATTEND Internal Medicine
DX: J18.9 Pneumonia, unspecified organism (principal); I48.91 Unspecified atrial fibrillation; R09.02 Hypoxemia; I48.0 Paroxysmal atrial fibrillation; K40.90 Unilateral inguinal hernia, without obstruction or gangrene, not specified as recurrent; G47.30 Sleep apnea, unspecified; M54.9 Dorsalgia, unspecified; G89.29 Other chronic pain; Z88.6 Allergy status to analgesic agent; Z91.030 Bee allergy status; Z79.01 Long term (current) use of anticoagulants; Z79.82 Long term (current) use of aspirin; R06.02 Shortness of breath; R05 Cough; R50.9 Fever, unspecified; Z79.899 Other long term (current) drug therapy; Z86.73 Personal history of transient ischemic attack (TIA), and cerebral infarction without residual deficits; Z87.891 Personal history of nicotine dependence
CPT/HCPCS: 36415; 71045; 80053; 83605; 85025; 85610; 86140; 86738; 87040 ×2; 94640; 96365; 99285; J0696; J7030; 80048; 84484; 94761; A9270-GY; J7620-GY

== ENCOUNTER 2019-01-09 15:14 | Emergency (ER) | payer MEDICARE, OTHER ==
[2019-01-09 15:27] VITALS: BP 111/65; PULSE 62
--- NOTE | 2019-01-09 16:33 | EDM.PDOC ---
ED HPI GENERAL MEDICAL PROBLEM - General Chief Complaint: Respiratory Problem Stated Complaint: SOB Time Seen by Provider: 01/09/19 15:48 Source of Information: Reports: Patient, RN Notes Reviewed - History of Present Illness INITIAL COMMENTS - FREE TEXT/NARRATIVE: 83 year old male with cough, nasal and sinus vipin. for the past several days. He was seen at the walk in clinic a few hrs ago, prescribed doxycycline for bronchitis. He took 1 dose of that, states he became short of breath, felt like it became hard to breath for about an hour or so. Now that he is here in the ED is feeling back to normal. There has been no rash, hives, facial or other swelling. - Related Data Allergies Allergy/AdvReac Type Severity Reaction Status Date / Time codeine Allergy Other Verified 01/09/19 15:27 venom-honey bee Allergy Anaphylactic Verified 01/09/19 15:27 [bee venom (honey bee)] Shock venom-wasp [wasp venom] Allergy Itching Verified 01/09/19 15:27 Home Meds: Home Meds Fish Oil/[place]-3 Fatty Acids [Fish Oil] 1,200 mg PO DAILY 05/23/14 [History] Simvastatin [Zocor] 40 mg PO BEDTIME 09/19/14 [History] Metoprolol Succinate 25 mg PO DAILY 06/09/18 [History] Warfarin [Coumadin] 2.5 mg PO SUTUWETHSA 06/09/18 [History] Warfarin [Coumadin] 5 mg PO MOFR 06/09/18 [History] Acetaminophen [Tylenol] 650 mg PO Q4H PRN tablet 06/10/18 [Rx] Amoxicillin/Clavulanate K [Augmentin 875-125 MG] 1 tab PO BID #10 tablet [Rx] Aspirin [Halfprin] 81 mg PO DAILY tab.ec 06/10/18 [Rx] Warfarin [Coumadin] 2.5 mg PO SuTuWeThSa@1800 tablet 06/10/18 [Rx] Amoxicillin 500 mg PO TID #30 capsule 01/09/19 [Rx] Past Medical History HEENT History: Reports: Cataract Cardiovascular History: Reports: Afib, Stents, Other (See Below) Other Cardiovascular History: varicise veins Respiratory History: Reports: Sleep Apnea Other Respiratory History: 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 Gastrointestinal History: Reports: Other (See Below) Other Gastrointestinal History: Inguinal hernia Genitourinary History: Reports: Other (See Below) Other Genitourinary History: urinary frequency Musculoskeletal History: Reports: Back Pain, Chronic Neurological History: Reports: CVA, Other (See Below) Other Neuro History: Brain bleed - Infectious Disease History Infectious Disease History: Reports: Chicken Pox - Past Surgical History HEENT Surgical History: Reports: Cataract Surgery, Tonsillectomy Other Cardiovascular Surgeries/Procedures: patient reports metal in heart but not pacemaker Respiratory Surgical History: Reports: None GI Surgical History: Reports: None Male Surgical History: Reports: None Neurological Surgical History: Reports: Lumbar Spine Other Neurological Surgeries/Procedures: surgery on lower back Musculoskeletal Surgical History: Reports: None Other Musculoskeletal Surgeries/Procedures:: rods in back Social & Family History - Family History Family Medical History: Noncontributory - Tobacco Use Smoking Status *Q: Never Smoker - Caffeine Use Caffeine Use: Reports: None ED ROS GENERAL - Review of Systems Review Of Systems: See Below Constitutional: Denies: Fever, Chills HEENT: Reports: Rhinitis, Sinus Problem. Denies: Dental Pain, Ear Pain, Throat Pain, Throat Swelling Respiratory: Reports: Shortness of Breath (gone), Cough, Sputum. Denies: Pleuritic Chest Pain Cardiovascular: Denies: Chest Pain GI/Abdominal: Denies: Abdominal Pain, Nausea, Vomiting Musculoskeletal: Reports: No Symptoms Skin: Denies: Pruritis, Rash, Erythema, Urticaria Neurological: Reports: No Symptoms ED EXAM, GENERAL - Physical Exam Exam: See Below General Appearance: Alert, No Apparent Distress Eye Exam: Bilateral Eye: PERRL Nose: Normal Inspection Throat/Mouth: Normal Inspection, Normal Oropharynx, Normal Voice, No Airway Compromise. No: Inflammation Head: Atraumatic. No: Facial Swelling Neck: Supple, Full Range of Motion Respiratory/Chest: No Respiratory Distress, Lungs Clear, Normal Breath Sounds. No: Rales, Rhonchi, Wheezing Cardiovascular: Regular Rate, Rhythm GI/Abdominal: Soft, Non-Tender Back Exam: No: CVA Tenderness (L), CVA Tenderness (R) Extremities: Normal Inspection, Normal Range of Motion. No: Pedal Edema Neurological: Alert, Oriented, No Motor/Sensory Deficits Skin Exam: Warm, Normal Color, No Rash. No: Erythema Course - Vital Signs Last Recorded V/S: Last Vital Signs Temp 97.5 F 01/09/19 15:22 Pulse 62 01/09/19 15:22 Resp 18 01/09/19 15:22 BP 111/65 01/09/19 15:22 Pulse Ox 93 L 01/09/19 15:22 Departure - Departure Time of Disposition: 16:31 Disposition: Home, Self-Care 01 Condition: Fair Clinical Impression: Bronchitis, Sinusitis - Discharge Information Prescriptions: Amoxicillin 500 mg PO TID #30 capsule Instructions: Sinusitis, Adult, [id number], Acute Bronchitis, Adult, Easy-to- Read Referrals: Eden Collier MD [Primary Care Provider] - Forms: ED Department Discharge Additional Instructions: Amoxicillin 500 mg 3 times daily for 10 days or until gone. [facility] Vaporizer or steam as needed. Follow up clinic as needed if symptoms not resolving as expected. Return to ED as needed.
== END 2019-01-09 16:44 | disposition home or self-care (01) ==
LOC: JD.ED 15:14
DX: J40 Bronchitis, not specified as acute or chronic (principal); J32.9 Chronic sinusitis, unspecified; Z79.01 Long term (current) use of anticoagulants; Z79.82 Long term (current) use of aspirin; Z86.73 Personal history of transient ischemic attack (TIA), and cerebral infarction without residual deficits; Z88.5 Allergy status to narcotic agent; Z91.030 Bee allergy status; Z91.038 Other insect allergy status
CPT/HCPCS: 99283; 99284

== ENCOUNTER 2020-03-09 09:46 | Inpatient (IN) | payer MEDICARE, OTHER ==
--- NOTE | 2020-03-09 10:33 | EDM.PDOC ---
ED HPI GENERAL MEDICAL PROBLEM - General Chief Complaint: Respiratory Problem Stated Complaint: WEAK Time Seen by Provider: 03/09/20 10:22 Source of Information: Reports: Patient History Limitations: Reports: No Limitations - History of Present Illness INITIAL COMMENTS - FREE TEXT/NARRATIVE: 85-year-old male brought to the ED primarily by his . Patient has not been feeling well for the last week. Severe fatigue excessive sleeping decreased appetite paroxysmal cough of primarily white foamy material. Identified to have a fever overnight with no reported chills. He denies feeling short of breath but O2 sats upon arrival in the ED are only 86%. Improved to 92% on 3 L/min by nasal cannula. History of chronic atrial fibrillation and is on Coumadin. Rate will travel as high as 125 intermittently but for the most part is staying around 100/min. Denies any orthopnea. reports he has barely been very inactive the last week. He did have a COVID-19 shot about 3 weeks ago as did his . They have been very careful to avoid jose the COVID-19 virus. Denies any problems with his bowel or bladder function. No skin inflammation. Onset: Gradual Onset Date: 03/02/20 (Symptoms of fatigue weakness and cough started about a week ago.) Duration: Day(s):, Getting Worse Location: Reports: Chest (Paroxysmal intermittent cough mainly producing whitish sputum. He denies feeling dyspneic in spite of having low O2 sats.), Other (Generalized weakness with decreased appetite excessive fatigue and sleeping.) Quality: Reports: Other (Spiked a fever during the night and temperature here is registered at 37.3 but he feels much warmer than this is to palpation) Severity: Moderate Improves with: Reports: None Worsens with: Reports: None Context: Reports: Other (Spontaneous occurrence of fatigue weakness and paroxysmal cough over the last week.). Denies: Activity, Exercise, Lifting, Sick Contact, Trauma Associated Symptoms: Reports: Cough, cough w sputum (3 white sputum perhaps a little blood-tinged according to the .), Fever/Chills, Loss of Appetite, Malaise, Shortness of Breath, Weakness (Neurolyse weakness). Denies: Confusion, Chest Pain, Headaches (Fever development overnight with no reported chills), Nausea/Vomiting, Rash, Seizure, Syncope (Mild only with exertion. Denies orthopnea) Treatments FLARER: Reports: Other (see below) (Has taken no medications other than what is prescribed for him.) - Related Data Allergies Allergy/AdvReac Type Severity Reaction Status Date / Time codeine Allergy Other Verified 03/09/20 12:20 venom-honey bee Allergy Anaphylactic Verified 03/09/20 12:20 [bee venom (honey bee)] Shock venom-wasp [wasp venom] Allergy Itching Verified 03/09/20 12:20 Home Meds: Home Meds Fish Oil/[place]-3 Fatty Acids [Fish Oil] 1,000 mg PO DAILY 05/23/14 [History] Simvastatin [Zocor] 40 mg PO BEDTIME 09/19/14 [History] Metoprolol Succinate 25 mg PO DAILY 06/09/18 [History] Warfarin [Coumadin] 2.5 mg PO SUTUWEFRSA 06/09/18 [History] Warfarin [Coumadin] 5 mg PO MOTH 06/09/18 [History] Aspirin [Halfprin] 81 mg PO DAILY tab.ec 06/10/18 [Rx] Acetaminophen [Tylenol] 500 mg PO DAILY 03/09/20 [History] Albuterol [Proventil HFA] 2 puff IH Q12H 03/09/20 [History] Brimonidine Tartrate [Brimonidine Tartrate 0.2% Ophth Soln] 1 drop EYEBOTH BID 03/09/20 [History] Cetirizine [ZyrTEC] 10 mg PO DAILY 03/09/20 [History] Fluticasone/Vilanterol [Breo Ellipta 100-25 MCG Inhalation Kit] 1 puff IN DAILY 03/09/20 [History] Magnesium 250 mg PO DAILY 03/09/20 [History] Multivit-Min/FA/Lycopen/Lutein [Centrum Silver Tablet] 1 tab PO DAILY 03/09/20 [History] Nitroglycerin [Nitrostat] 0.4 mg SL ASDIRECTED PRN 03/09/20 [History] Past Medical History HEENT History: Reports: Cataract Cardiovascular History: Reports: Afib (On Coumadin for the last 2 years for atrial fib.), Heart Failure, Stents, Other (See Below) Other Cardiovascular History: varicise veins Respiratory History: Reports: Sleep Apnea Other Respiratory History: 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 Gastrointestinal History: Reports: Other (See Below) Other Gastrointestinal History: Inguinal hernia Genitourinary History: Reports: BPH, Other (See Below) Other Genitourinary History: urinary frequency Musculoskeletal History: Reports: Back Pain, Chronic Neurological History: Reports: CVA, Other (See Below) Other Neuro History: Brain bleed--in the past. - Infectious Disease History Infectious Disease History: Reports: Chicken Pox - Past Surgical History HEENT Surgical History: Reports: Cataract Surgery, Tonsillectomy Other Cardiovascular Surgeries/Procedures: patient reports metal in heart but not pacemaker Respiratory Surgical History: Reports: None GI Surgical History: Reports: None Male Surgical History: Reports: None Neurological Surgical History: Reports: Lumbar Spine Other Neurological Surgeries/Procedures: surgery on lower back Musculoskeletal Surgical History: Reports: None Other Musculoskeletal Surgeries/Procedures:: rods in back Social & Family History - Family History Family Medical History: No Pertinent Family History - Caffeine Use Caffeine Use: Reports: None - Living Situation & Occupation Living situation: Reports: , with Spouse Occupation: Retired ED ROS GENERAL - Review of Systems Review Of Systems: See Below Constitutional: Reports: Fever (Developed fever overnight.), Malaise, Weakness, Fatigue, Decreased Appetite (For the last week.), Weight Loss. Denies: Chills ( Temperature checked yesterday by was reportedly 98.1) HEENT: Reports: Glasses, Hearing Loss, Other (Has had previous cataract surgery and intraocular lens implants.) Respiratory: Reports: Shortness of Breath (Mildly hard of hearing.), Cough, Sputum (Whitish sputum perhaps a little bit blood-tinged yesterday). Denies: Wheezing, Pleuritic Chest Pain Cardiovascular: Reports: Dyspnea on Exertion. Denies: Chest Pain, Blood Pressure Problem, Claudication, Edema, Lightheadedness, Orthopnea Endocrine: Reports: Fatigue (On occasion) GI/Abdominal: Reports: Decreased Appetite. Denies: Constipation, Diarrhea, Nausea, Stool Incontinence, Vomiting : Reports: Frequency, Other (Nocturia usually 2-3 times.) Musculoskeletal: Reports: Neck Pain (Knees hips neck and shoulders at times), Back Pain, Joint Pain Skin: Reports: Bruising (Bruises easily from being on Coumadin.) Neurological: Reports: Dizziness, Difficulty Walking ( Generalized), Weakness (A bit this morning.). Denies: Confusion, Headache, Numbness, Syncope, Tingling, Change in Speech ( due to weakness having difficulty walking this last week.) Psychiatric: Reports: No Symptoms Hematologic/Lymphatic: Reports: Easy Bruising (Due to being on Coumadin.) Immunologic: Reports: No Symptoms ED EXAM, GENERAL - Physical Exam Exam: See Below Exam Limited By: No Limitations General Appearance: Alert, Mild Distress, Other (Patient has a mask like facies. Question Parkinson's disease. History of previous brain bleed) Eye Exam: Bilateral Eye: Normal Inspection (Bilateral cataract extraction and intraocular lens implants.), PERRL Throat/Mouth: Other Head: Atraumatic, Normocephalic (Tongue is very dry and coated. No oropharyngeal infection), Other (No signs of head or facial injuries.) Neck: Normal Inspection, Limited Range of Motion (Mild.), Tender Lateral. No: Carotid Bruit, Lymphadenopathy (L) ( Did lateral flexion and rotation due to arthritic change), Lymphadenopathy (R) Respiratory/Chest: Respiratory Distress (Tachypnea at rest the but the patient does not appreciate being short of breath.), Rales (Throughout both lower lung chavarria). No: Rhonchi ( lower 50% posteriorly), Wheezing Cardiovascular: No Edema, No Gallop, No Murmur (No audible murmur), Tachycardia, Irregularly Irregular (Chronic atrial fibrillation rate 122 on my initial eval). No: Normal Peripheral Pulses Peripheral Pulses: 2+: Carotid (L), Carotid (R), Posterior Tibial (L), Posterior Tibial (R), Dorsalis Pedis (L), Dorsalis Pedis (R) GI/Abdominal: Normal Bowel Sounds, Soft, Non-Tender, No Organomegaly, No Abnormal Bruit, No Mass, Pelvis Stable, Other (Mildly obese. No surgical scars appreciated) (Male) Exam: Deferred Back Exam: Normal Inspection. No: CVA Tenderness (L), CVA Tenderness (R) Extremities: Normal Inspection, Non-Tender, No Pedal Edema, Other (Evidence of mild osteoarthritic changes both knees and very limited internal/external rotation of both hips.) Neurological: Alert, Oriented, CN II-XII Intact, Normal Cognition. No: Normal Gait (Not assessed) Psychiatric: Flat Affect Skin Exam: Warm, Dry, Intact, Normal Color, No Rash #1 Interpretation EKG Date: 03/09/20 Time: 10:11 Rhythm: A-Fib (With rate of 105 to 140/min.) Rate (Beats/Min): 113 [place]: Normal P-Wave: Variable QRS: Other (Decreased voltage limb leads. Early R wave transition V3 consider septal hypertrophy pattern.) ST-T: Other (Diffuse repolarization abnormality from leads V3 to V6 with no evidence of ischemic change. Nonspecific T wave flattening in aVL.) QT: Normal EKG Interpretation Comments: Abnormal ECG Course - Vital Signs Last Recorded V/S: Last Vital Signs Temp 40 C H 03/09/20 12:36 Pulse 98 03/09/20 11:35 Resp 22 H 03/09/20 11:35 BP 134/71 03/09/20 11:35 Pulse Ox 91 L 03/09/20 11:35 - Orders/Labs/Meds Orders: Active Orders 24 hr Category Date Time Status Bladder Scan [RC] ASDIRECTED Care 03/09/20 10:39 Active EKG Documentation Completion [RC] STAT Care 03/09/20 10:37 Active Oxygen Therapy [RC] ASDIRECTED Care 03/09/20 10:38 Active Chest Abdomen Pelvis w Cont [CT] Stat Exams 03/09/20 11:50 Taken CBC WITH MANUAL DIFF [HEME] Stat Lab 03/09/20 10:28 Results CULTURE BLOOD [BC] Stat Lab 03/09/20 10:28 Received CULTURE BLOOD [BC] Stat Lab 03/09/20 10:35 Received Dextrose 5%-0.9% NaCl [Dextrose 5%-Normal Saline] 1,000 Med 03/09/20 10:45 Active ml IV ASDIRECTED Sodium Chloride 0.9% [Saline Flush] Med 03/09/20 11:55 Active 10 ml FLUSH ONETIME PRN Blood Culture x2 Reflex Set [OM.PC] Stat Oth 03/09/20 10:40 Ordered Medication Orders Dextrose/Sodium Chloride (Dextrose 5%-Normal Saline) 1,000 mls @ 75 mls/hr IV ASDIRECTED EDI Last Admin: 03/09/20 11:15 Dose: 75 mls/hr Documented by: GEORGE Sodium Chloride (Saline Flush) 10 ml FLUSH ONETIME PRN PRN Reason: Keep Vein Open Last Admin: 03/09/20 12:19 Dose: 10 ml Documented by: [email or web address] Labs: Laboratory Tests 03/09/20 03/09/20 03/09/20 Range/Units 10:25 10:28 10:28 WBC 13.55 H (4.23-9.07) K/mm3 RBC 4.86 (4.63-6.08) M/mm3 Hgb 14.9 (13.7-17.5) gm/dl Hct 46.4 (40.1-51.0) % MCV 95.5 H (79.0-92.2) fl MCH 30.7 (25.7-32.2) pg MCHC 32.1 L (32.2-35.5) g/dl RDW Std Deviation 50.8 H (35.1-43.9) fL Plt Count 271 (163-337) K/mm3 MPV 9.4 (9.4-12.3) fl Neutrophils % (Manual) 88 H (40-60) % Band Neutrophils % 0 (0-10) % Lymphocytes % (Manual) 12 L (20-40) % Atypical Lymphs % 0 % Monocytes % (Manual) 0 L (2-10) % Eosinophils % (Manual) 0 L (0.8-7.0) % Basophils % (Manual) 0 L (0.2-1.2) PT 22.6 H (9.7-12.0) SECONDS INR 2.14 APTT 37.7 H (21.7-31.4) SECONDS Puncture Site ABG pH (7.35-7.45) ABG pCO2 (35.0-45.0) mmHg ABG pO2 (80.0-100.0) mmHg ABG HCO3 (22.0-26.0) meq/L ABG O2 Saturation (96.0-97.0) % ABG Base Excess (-2-2.0) Johny Test A-a Gradient mmHg O2 Delivery Device Oxygen Flow Rate FiO2 (21.00-100.00) % Sodium (136-145) mEq/L Potassium (3.5-5.1) mEq/L Chloride (98-107) mEq/L Carbon Dioxide (21-32) mEq/L Anion Gap (5-15) BUN (7-18) mg/dL Creatinine (0.7-1.3) mg/dL Est Cr Clr Drug Dosing mL/min Estimated GFR (MDRD) (>60) mL/min BUN/Creatinine Ratio (14-18) Glucose (83-115) mg/dL Lactic Acid (0.4-2.0) mmol/L Calcium (8.5-10.1) mg/dL Magnesium (1.8-2.4) mg/dl Total Bilirubin (0.2-1.0) mg/dL GGT (15-85) U/L AST (15-37) U/L ALT (16-63) U/L Alkaline Phosphatase (46-116) U/L CK-MB (CK-2) (0-3.6) ng/ml Troponin I (0.00-0.056) ng/mL C-Reactive Protein (<1.0) mg/dL NT-Pro-B Natriuret Pep 1081 H (0-450) pg/mL Total Protein (6.4-8.2) g/dl Albumin (3.4-5.0) g/dl Globulin gm/dL Albumin/Globulin Ratio (1-2) Lipase (73-393) U/L PSA Screen (0.0-4.0) ng/mL TSH 3rd Generation (0.358-3.74) uIU/mL Urine Color (Yellow) Urine Appearance (Clear) Urine pH (5.0-8.0) Ur Specific [place] (1.005-1.030) Urine Protein (Negative) Urine Glucose (UA) (Negative) Urine Ketones (Negative) Urine Occult Blood (Negative) Urine Nitrite (Negative) Urine Bilirubin (Negative) Urine Urobilinogen (0.2-1.0) Ur Leukocyte Esterase (Negative) Urine RBC (0-5) /hpf Urine WBC (0-5) /hpf Ur Epithelial Cells (0-5) /hpf Urine Bacteria (FEW) /hpf Urine Mucus (FEW) /hpf SARS-CoV-2 RNA (DEBORAH) (NEGATIVE) 03/09/20 03/09/20 03/09/20 Range/Units 10:28 10:28 10:28 WBC (4.23-9.07) K/mm3 RBC (4.63-6.08) M/mm3 Hgb (13.7-17.5) gm/dl Hct (40.1-51.0) % MCV (79.0-92.2) fl MCH (25.7-32.2) pg MCHC (32.2-35.5) g/dl RDW Std Deviation (35.1-43.9) fL Plt Count (163-337) K/mm3 MPV (9.4-12.3) fl Neutrophils % (Manual) (40-60) % Band Neutrophils % (0-10) % Lymphocytes % (Manual) (20-40) % Atypical Lymphs % % Monocytes % (Manual) (2-10) % Eosinophils % (Manual) (0.8-7.0) % Basophils % (Manual) (0.2-1.2) PT (9.7-12.0) SECONDS INR APTT (21.7-31.4) SECONDS Puncture Site ABG pH (7.35-7.45) ABG pCO2 (35.0-45.0) mmHg ABG pO2 (80.0-100.0) mmHg ABG HCO3 (22.0-26.0) meq/L ABG O2 Saturation (96.0-97.0) % ABG Base Excess (-2-2.0) Jhony Test A-a Gradient mmHg O2 Delivery Device Oxygen Flow Rate FiO2 (21.00-100.00) % Sodium 139 (136-145) mEq/L Potassium 3.6 (3.5-5.1) mEq/L Chloride 102 (98-107) mEq/L Carbon Dioxide 24 (21-32) mEq/L Anion Gap 16.6 H (5-15) BUN 17 (7-18) mg/dL Creatinine 1.1 (0.7-1.3) mg/dL Est Cr Clr Drug Dosing 49.10 mL/min Estimated GFR (MDRD) > 60 (>60) mL/min BUN/Creatinine Ratio 15.5 (14-18) Glucose 122 H (83-115) mg/dL Lactic Acid 1.5 (0.4-2.0) mmol/L Calcium 8.7 (8.5-10.1) mg/dL Magnesium 1.7 L (1.8-2.4) mg/dl Total Bilirubin 1.8 H (0.2-1.0) mg/dL GGT (15-85) U/L AST 55 H (15-37) U/L ALT 65 H (16-63) U/L Alkaline Phosphatase 158 H (46-116) U/L CK-MB (CK-2) < 0.5 (0-3.6) ng/ml Troponin I < 0.017 (0.00-0.056) ng/mL C-Reactive Protein 13.6 H* (<1.0) mg/dL NT-Pro-B Natriuret Pep (0-450) pg/mL Total Protein 7.5 (6.4-8.2) g/dl Albumin 3.3 L (3.4-5.0) g/dl Globulin 4.2 gm/dL Albumin/Globulin Ratio 0.8 L (1-2) Lipase (73-393) U/L PSA Screen (0.0-4.0) ng/mL TSH 3rd Generation 0.713 (0.358-3.74) uIU/mL Urine Color (Yellow) Urine Appearance (Clear) Urine pH (5.0-8.0) Ur Specific [place] (1.005-1.030) Urine Protein (Negative) Urine Glucose (UA) (Negative) Urine Ketones (Negative) Urine Occult Blood (Negative) Urine Nitrite (Negative) Urine Bilirubin (Negative) Urine Urobilinogen (0.2-1.0) Ur Leukocyte Esterase (Negative) Urine RBC (0-5) /hpf Urine WBC (0-5) /hpf Ur Epithelial Cells (0-5) /hpf Urine Bacteria (FEW) /hpf Urine Mucus (FEW) /hpf SARS-CoV-2 RNA (DEBORAH) (NEGATIVE) 03/09/20 03/09/20 03/09/20 Range/Units 10:28 10:28 10:40 WBC (4.23-9.07) K/mm3 RBC (4.63-6.08) M/mm3 Hgb (13.7-17.5) gm/dl Hct (40.1-51.0) % MCV (79.0-92.2) fl MCH (25.7-32.2) pg MCHC (32.2-35.5) g/dl RDW Std Deviation (35.1-43.9) fL Plt Count (163-337) K/mm3 MPV (9.4-12.3) fl Neutrophils % (Manual) (40-60) % Band Neutrophils % (0-10) % Lymphocytes % (Manual) (20-40) % Atypical Lymphs % % Monocytes % (Manual) (2-10) % Eosinophils % (Manual) (0.8-7.0) % Basophils % (Manual) (0.2-1.2) PT (9.7-12.0) SECONDS INR APTT (21.7-31.4) SECONDS Puncture Site Rt radial ABG pH 7.46 H (7.35-7.45) ABG pCO2 32.3 L (35.0-45.0) mmHg ABG pO2 67.0 L (80.0-100.0) mmHg ABG HCO3 22.6 (22.0-26.0) meq/L ABG O2 Saturation 93.7 L (96.0-97.0) % ABG Base Excess 0.0 (-2-2.0) Johny Test Positive A-a Gradient 121 mmHg O2 Delivery Device Nasal cannula Oxygen Flow Rate 3.0 FiO2 32.00 (21.00-100.00) % Sodium (136-145) mEq/L Potassium (3.5-5.1) mEq/L Chloride (98-107) mEq/L Carbon Dioxide (21-32) mEq/L Anion Gap (5-15) BUN (7-18) mg/dL Creatinine (0.7-1.3) mg/dL Est Cr Clr Drug Dosing mL/min Estimated GFR (MDRD) (>60) mL/min BUN/Creatinine Ratio (14-18) Glucose (83-115) mg/dL Lactic Acid (0.4-2.0) mmol/L Calcium (8.5-10.1) mg/dL Magnesium (1.8-2.4) mg/dl Total Bilirubin (0.2-1.0) mg/dL GGT 144 H (15-85) U/L AST (15-37) U/L ALT (16-63) U/L Alkaline Phosphatase (46-116) U/L CK-MB (CK-2) (0-3.6) ng/ml Troponin I (0.00-0.056) ng/mL C-Reactive Protein (<1.0) mg/dL NT-Pro-B Natriuret Pep (0-450) pg/mL Total Protein (6.4-8.2) g/dl Albumin (3.4-5.0) g/dl Globulin gm/dL Albumin/Globulin Ratio (1-2) Lipase 48 L (73-393) U/L PSA Screen 15.9 H (0.0-4.0) ng/mL TSH 3rd Generation (0.358-3.74) uIU/mL Urine Color (Yellow) Urine Appearance (Clear) Urine pH (5.0-8.0) Ur Specific [place] (1.005-1.030) Urine Protein (Negative) Urine Glucose (UA) (Negative) Urine Ketones (Negative) Urine Occult Blood (Negative) Urine Nitrite (Negative) Urine Bilirubin (Negative) Urine Urobilinogen (0.2-1.0) Ur Leukocyte Esterase (Negative) Urine RBC (0-5) /hpf Urine WBC (0-5) /hpf Ur Epithelial Cells (0-5) /hpf Urine Bacteria (FEW) /hpf Urine Mucus (FEW) /hpf SARS-CoV-2 RNA (DEBORAH) (NEGATIVE) 03/09/20 03/09/20 Range/Units 10:40 11:30 WBC (4.23-9.07) K/mm3 RBC (4.63-6.08) M/mm3 Hgb (13.7-17.5) gm/dl Hct (40.1-51.0) % MCV (79.0-92.2) fl MCH (25.7-32.2) pg MCHC (32.2-35.5) g/dl RDW Std Deviation (35.1-43.9) fL Plt Count (163-337) K/mm3 MPV (9.4-12.3) fl Neutrophils % (Manual) (40-60) % Band Neutrophils % (0-10) % Lymphocytes % (Manual) (20-40) % Atypical Lymphs % % Monocytes % (Manual) (2-10) % Eosinophils % (Manual) (0.8-7.0) % Basophils % (Manual) (0.2-1.2) PT (9.7-12.0) SECONDS INR APTT (21.7-31.4) SECONDS Puncture Site ABG pH (7.35-7.45) ABG pCO2 (35.0-45.0) mmHg ABG pO2 (80.0-100.0) mmHg ABG HCO3 (22.0-26.0) meq/L ABG O2 Saturation (96.0-97.0) % ABG Base Excess (-2-2.0) Johny Test A-a Gradient mmHg O2 Delivery Device Oxygen Flow Rate FiO2 (21.00-100.00) % Sodium (136-145) mEq/L Potassium (3.5-5.1) mEq/L Chloride (98-107) mEq/L Carbon Dioxide (21-32) mEq/L Anion Gap (5-15) BUN (7-18) mg/dL Creatinine (0.7-1.3) mg/dL Est Cr Clr Drug Dosing mL/min Estimated GFR (MDRD) (>60) mL/min BUN/Creatinine Ratio (14-18) Glucose (83-115) mg/dL Lactic Acid (0.4-2.0) mmol/L Calcium (8.5-10.1) mg/dL Magnesium (1.8-2.4) mg/dl Total Bilirubin (0.2-1.0) mg/dL GGT (15-85) U/L AST (15-37) U/L ALT (16-63) U/L Alkaline Phosphatase (46-116) U/L CK-MB (CK-2) (0-3.6) ng/ml Troponin I (0.00-0.056) ng/mL C-Reactive Protein (<1.0) mg/dL NT-Pro-B Natriuret Pep (0-450) pg/mL Total Protein (6.4-8.2) g/dl Albumin (3.4-5.0) g/dl Globulin gm/dL Albumin/Globulin Ratio (1-2) Lipase (73-393) U/L PSA Screen (0.0-4.0) ng/mL TSH 3rd Generation (0.358-3.74) uIU/mL Urine Color Yellow (Yellow) Urine Appearance Clear (Clear) Urine pH 6.5 (5.0-8.0) Ur Specific [place] 1.020 (1.005-1.030) Urine Protein 2+ H (Negative) Urine Glucose (UA) Negative (Negative) Urine Ketones 1+ H (Negative) Urine Occult Blood 1+ H (Negative) Urine Nitrite Negative (Negative) Urine Bilirubin Negative (Negative) Urine Urobilinogen 0.2 (0.2-1.0) Ur Leukocyte Esterase Negative (Negative) Urine RBC 0-5 (0-5) /hpf Urine WBC 0-5 (0-5) /hpf Ur Epithelial Cells 0-5 (0-5) /hpf Urine Bacteria Few (FEW) /hpf Urine Mucus Moderate H (FEW) /hpf SARS-CoV-2 RNA (DEBORAH) Negative (NEGATIVE) Meds: Medications Generic Name Dose Route Start Last Admin Trade Name Fretalisha PRN Reason Stop Dose Admin Dextrose/Sodium Chloride 1,000 mls @ 75 mls/hr 03/09/20 10:45 03/09/20 11:15 Dextrose 5%-Normal Saline IV 75 mls/hr ASDIRECTED EDI Administration Sodium Chloride 10 ml 03/09/20 11:55 03/09/20 12:19 Saline Flush FLUSH 10 ml ONETIME PRN Administration Keep Vein Open Discontinued Medications Generic Name Dose Route Start Last Admin Trade Name Freq PRN Reason Stop Dose Admin Acetaminophen 975 mg 03/09/20 11:48 03/09/20 12:36 Tylenol PO 03/09/20 11:49 975 mg ONETIME ONE Administration Furosemide 40 mg 03/09/20 10:36 03/09/20 11:13 Lasix IVPUSH 03/09/20 10:37 40 mg NOW ONE Administration Ceftriaxone Sodium 2 gm/ 100 mls @ 200 mls/hr 03/09/20 11:52 03/09/20 12:35 Sodium Chloride IV 03/09/20 12:21 200 mls/hr ONETIME ONE Administration Iopamidol 100 ml 03/09/20 11:55 03/09/20 12:18 Isovue-300 (61%) IVPUSH 03/09/20 11:56 100 ml ONETIME ONE Administration Iopamidol 25 ml 03/09/20 11:55 03/09/20 12:18 Isovue-300 (61%) IVPUSH 03/09/20 11:56 25 ml ONETIME ONE Administration - Radiology Interpretation Free Text/Narrative:: 85-year-old male presents to the ED with his this morning. He spiked a fever during the night. reports that he has been feeling ill for the last week with increased fatigue, weakness, anorexia and development of a cough which is producing primarily whitish phlegm. Today is the first time she is appreciated a fever and she has not been checking the last several days. He did have a COVID-19 injection 3 weeks ago and is scheduled for the next shot in 1 week's time. He denies any problems with his bowel or bladder function. Has a history of chronic atrial fibrillation for greater than 2 years and is a nticoagulated with Coumadin. At the time of presentation he was in atrial fibrillation with a rate of 105 to 140/min. Blood pressure 110/59. O2 sats 86% on room air improved to 92 to 93% on 3 L/min by nasal cannula. Bilateral crackles throughout both posterior lung chavarria involving the lower 50% combined with heart failure. He denies orthopnea or PND. Benign abdomen. Denies any genitourinary complaints. He is very warm to palpation much warmer than reported temperature. Plan septic work-up will be carried out. Minimal IV fluids at this point time since he appears to be in failure. Blood pressure is maintained at present. Covid screen will be done . Patient will require admission to hospital due to hypoxemia. ABGs to be done as well. - Re-Assessments/Exams Free Text/Narrative Re-Assessment/Exam: 03/09/20 11:29 chest x-ray done portably reveals moderate hyperinflation of both lungs. Left hemidiaphragm is elevated i.e. higher than the right side. There appears to be a diffuse infiltrate left lower lobe along the cardiac border. Cannot rule out pneumonia. Mild diffuse vascular congestion pattern.. White count is elevated at 13.55. Differential pending hemoglobin is 14.9 with hematocrit of 46.4 MCV slightly elevated at 95.5. Platelet count 271,000. PT is 22.6 with an INR of 2.14. PTT is elevated at 37.7. ABGs revealed a pH of 7.46 with a PCO2 of 32.3. PO2 was 67.0 with O2 sats of 93.7 on 3 L/min by nasal cannula. 03/09/20 11:48 Chemistry reveals a sodium of 139 and a potassium of 3.6. Chloride is 102 with a bicarb of 24. Anion gap is elevated at 16.6. BUN is 17 with a creatinine of 1.1 and a GFR greater than 60. Glucose is 122. Lactic acid is 1.5. Calcium is 8.7. Magnesium is 1.7. Bilirubin is elevated at 1.8 with an AST of 55 and an ALT of 65. Alkaline phosphatase mildly elevated at 158. CK-MB fraction is less than 0.5 troponin I is less than 0.017 C-reactive protein is elevated at 13.6 total protein 7.5 with an albumin fraction of 3.3 COVID-19 screen is negative. Slight possibility of biliary tree obstruction with elevated bilirubin and alk phosphatase. I will order a GGT and a serum lipase. Temperature is currently 104 rectally. Tylenol 9 7 5 mg ordered for fever relief. Source of infection is not clinically clear. Suspect a mild left lower lobar pneumonia. CT scan of the chest abdomen pelvis will be performed with IV contrast since his renal function is normal. We will start him on antibiotic Rocephin 2 g IV at this time 03/09/20 11:58 CRP has now returned elevated at 13.6. COVID-19 screen is negative. 03/09/20 12:56 BNP has returned at 1081. PSA screen is markedly elevated at 15.9 concerning for underlying malignancy. Serum lipase is 48. TSH is 0.713. The urinalysis shows 2+ proteinuria 1+ ketones 1+ occult blood with no signs of infection. 03/09/20 12:57: CT of the chest abdomen pelvis has been completed with IV contrast only. Consolidation is evident in both lower lobes representing a combination of atelectasis and pneumonia. Pleural spaces shows small bilateral pleural effusions. Heart is unremarkable with no cardiomegaly reported although I felt it was upper limits of normal. No pericardial effusion. Aorta was unremarkable with no aneurysm. Lymph nodes unremarkable with no enlarged lymph nodes. CT of the abdomen shows liver to be looking normal with no mass or intraductal dilatation. Gallbladder appears to be normal without any calcified gallstones. No ductal dilatation appreciated. Pancreas shows pancreatic atrophy. Spleen is normal with no splenomegaly. Adrenal glands are normal with no masses. Kidneys and ureters show a 4.3 cm simple cyst anterior superior pole of right kidney. Stomach and bowel reveals rectum to be distended 5.3 cm with fecal material consistent with fecal impaction. Normal appendix. Intraperitoneal space is unremarkable with no free air no significant fluid collection. Vasculature is unremarkable with no abdominal aortic aneurysm. Lymph nodes unremarkable with no enlarged lymph nodes. Urinary bladder is distended. Reproductive unremarkable as visualized. Internal fixation device in the lumbar spine appreciated at L4-S1 level. 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 There is a left inguinal hernia containing loops of colon with no signs of obstruction. 03/09/20 13:12 Case discussed with on-call hospitalist Dr. De La O and the patient will be admitted at this time to the [facility] surgery floor. I have discussed CODE STATUS with the patient and his who is in the room with him. At this time he wishes to remain code level 1. Departure - Departure Time of Disposition: 13:19 Disposition: Admitted As Inpatient 66 Condition: Serious Clinical Impression: Mild congestive heart failure, Chronic atrial fibrillation, Acute febrile illness, Hypoxia Bilateral pneumonia Qualifiers: Pneumonia type: due to unspecified organism Lung location: unspecified part of lung Qualified Code(s): J18.9 - Pneumonia, unspecified organism - Discharge Information *PRESCRIPTION DRUG MONITORING PROGRAM REVIEWED*: Not Applicable *COPY OF PRESCRIPTION DRUG MONITORING REPORT IN PATIENT SAVA[place]: Not Applicable Referrals: Eden Collier MD [Primary Care Provider] - Forms: ED Department Discharge Sepsis Event Note (ED) - Evaluation Sepsis Screening Result: No Definite Risk - Focused Exam Vital Signs: Vital Signs Temp Temp Temp Pulse Resp BP Pulse Ox 03/09/20 12:36 40 C H 03/09/20 11:35 40.0 C H 98 22 H 134/71 91 L 03/09/20 10:05 37.3 C 106 H 34 H 113/56 L 88 L - My Orders Last 24 Hours: My Active Orders 03/09/20 10:28 CBC WITH MANUAL DIFF [HEME] Stat CULTURE BLOOD [BC] Stat 03/09/20 10:35 CULTURE BLOOD [BC] Stat 03/09/20 10:37 EKG Documentation Completion [RC] STAT 03/09/20 10:38 Oxygen Therapy [RC] ASDIRECTED 03/09/20 10:39 Bladder Scan [RC] ASDIRECTED 03/09/20 10:40 Blood Culture x2 Reflex Set [OM.PC] Stat 03/09/20 10:45 Dextrose 5%-0.9% NaCl [Dextrose 5%-Normal Saline] 1,000 ml IV ASDIRECTED 03/09/20 11:50 Chest Abdomen Pelvis w Cont [CT] Stat 03/09/20 11:55 Sodium Chloride 0.9% [Saline Flush] 10 ml FLUSH ONETIME PRN - Assessment/Plan Last 24 Hours: My Active Orders 03/09/20 10:28 CBC WITH MANUAL DIFF [HEME] Stat CULTURE BLOOD [BC] Stat 03/09/20 10:35 CULTURE BLOOD [BC] Stat 03/09/20 10:37 EKG Documentation Completion [RC] STAT 03/09/20 10:38 Oxygen Therapy [RC] ASDIRECTED 03/09/20 10:39 Bladder Scan [RC] ASDIRECTED 03/09/20 10:40 Blood Culture x2 Reflex Set [OM.PC] Stat 03/09/20 10:45 Dextrose 5%-0.9% NaCl [Dextrose 5%-Normal Saline] 1,000 ml IV ASDIRECTED 03/09/20 11:50 Chest Abdomen Pelvis w Cont [CT] Stat 03/09/20 11:55 Sodium Chloride 0.9% [Saline Flush] 10 ml FLUSH ONETIME PRN
[2020-03-09] MEDS ORDERED: Furosemide 40 MG/4 ML VIAL IVPUSH ONE (10:36)
[2020-03-09] MEDS ORDERED: Dextrose 5%-0.9% NaCl 1,000 ML IV SCH (10:45)
[2020-03-09] MEDS ORDERED: Acetaminophen 325 MG Tab PO ONE (11:48)
[2020-03-09] MEDS ORDERED: cefTRIAXone 2 GM in Sodium Chloride 0.9% 100 ML IV ONE (11:52)
[2020-03-09] MEDS ORDERED: Sodium Chloride 0.9% 10 ML Syringe FLUSH PRN (11:55)
[2020-03-09] MEDS ORDERED: Iopamidol 612 MG/ML 100 ML Bottle IVPUSH ONE (11:55)
[2020-03-09] MEDS ORDERED: Iopamidol 612 MG/ML 50 ML SDV IVPUSH ONE (11:55)
--- NOTE | 2020-03-09 12:50 | CR ---
Chest: Portable view of the chest was obtained in upright position. Comparison: Prior chest x-ray in 06/09/18. Heart size is within normal limits. Tortuous thoracic aorta is seen. Increased density within the left mid and left lower lung is seen most likely representing areas of pneumonia. Right lung is clear. Bony structures are grossly intact. Impression: 1. Findings suspicious for left mid and lower lung pneumonia. 2. Other findings as noted above which are nonacute. Diagnostic code #3
[2020-03-09] MEDS ORDERED: Lactated Ringers 1,000 ML IV ONE (15:16)
[2020-03-09] MEDS ORDERED: oxyCODONE 5 MG Tab PO PRN (15:35)
[2020-03-09] MEDS ORDERED: Bisacodyl 5 MG Tab PO PRN (15:35)
[2020-03-09] MEDS ORDERED: Polyethylene Glycol 3350 Powder 17 GM Packet PO PRN (15:35)
[2020-03-09] MEDS ORDERED: Ondansetron 4 MG/2 ML SDV IV PRN (15:35)
[2020-03-09] MEDS ORDERED: Albuterol 0.083% 2.5 MG/3 ML Neb Soln NEB PRN (15:35)
[2020-03-09] MEDS ORDERED: Acetaminophen 325 MG Tab PO PRN (15:35)
[2020-03-09] MEDS ORDERED: Albuterol/Ipratropium 3.0-0.5 MG/3 ML Neb Soln NEB PRN (15:35)
--- NOTE | 2020-03-09 16:18 | PCM.HP.2 ---
H&P History of Present Illness - General Date of Service: 03/09/20 Admit Problem/Dx: Admission Diagnosis/Problem Admission Diagnosis/Problem Pneumonia - History of Present Illness Initial Comments - Free Text/Narative: 85-year-old male admitted to the ICU for bilateral pneumonia presented to the emergency department with fatigue and cough. Patient was a poor historian secondary to altered mental status from sepsis so much of the history was obtained through the emergency department notes. Patient's cough was productive of a white forming material. He has not been feeling well for the last week and has been excessively sleepy. Rectal temperature on admission was 104.0. He requires 3 to 5 L of FiO2 to keep his oxygen saturations in the mid 90s. Blood pressure dropped in the emergency department to 70s systolic and he was given a 250 mL bolus of D5 NS and placed on 75 mL an hour. His blood pressure did improve to 86/48. He does have a history of atrial fibrillation and is on Coumadin for stroke prophylaxis and metoprolol for rate control. Heart rate was still as high as 125 intermittently in the emergency department. When I visited with him he was in the 60s. Of note a PSA was done in the emergency department and it was 15.9. This will need to be rechecked as an outpatient when he is not severely ill. A CT of the chest, abdomen, and pelvis has been completed. IV Contrast was used. Unofficial reading showed a combination of atelectasis and pneumonia in both lower lobes. Pleural spaces show small bilateral pleural effusions. CT of the abdomen showed a normal appearing liver, gallbladder, no ductal dilatation. Stomach and bowel reveals rectum to be distended at 5.3 cm with fecal material consistent with fecal impaction. Covid was negative. - Related Data Allergies/Adverse Reactions: Allergies Allergy/AdvReac Type Severity Reaction Status Date / Time codeine Allergy Other Verified 03/09/20 12:20 venom-honey bee Allergy Anaphylactic Verified 03/09/20 12:20 [bee venom (honey bee)] Shock venom-wasp [wasp venom] Allergy Itching Verified 03/09/20 12:20 Home Medications: Home Meds Fish Oil/[place]-3 Fatty Acids [Fish Oil] 1,000 mg PO DAILY 05/23/14 [History] Simvastatin [Zocor] 40 mg PO BEDTIME 09/19/14 [History] Metoprolol Succinate 25 mg PO DAILY 06/09/18 [History] Warfarin [Coumadin] 2.5 mg PO SUTUWEFRSA 06/09/18 [History] Warfarin [Coumadin] 5 mg PO MOTH 06/09/18 [History] Aspirin [Halfprin] 81 mg PO DAILY tab.ec 06/10/18 [Rx] Acetaminophen [Tylenol] 500 mg PO DAILY 03/09/20 [History] Albuterol [Proventil HFA] 2 puff IH Q12H 03/09/20 [History] Brimonidine Tartrate [Brimonidine Tartrate 0.2% Ophth Soln] 1 drop EYEBOTH BID 03/09/20 [History] Cetirizine [ZyrTEC] 10 mg PO DAILY 03/09/20 [History] Fluticasone/Vilanterol [Breo Ellipta 100-25 MCG Inhalation Kit] 1 puff IN DAILY 03/09/20 [History] Magnesium 250 mg PO DAILY 03/09/20 [History] Multivit-Min/FA/Lycopen/Lutein [Centrum Silver Tablet] 1 tab PO DAILY 03/09/20 [History] Nitroglycerin [Nitrostat] 0.4 mg SL ASDIRECTED PRN 03/09/20 [History] Past Medical History HEENT History: Reports: Cataract, Impaired Vision Other HEENT History: wears eyeglasses Cardiovascular History: Reports: Afib, Heart Failure, Stents, Other (See Below) Other Cardiovascular History: varicise veins Respiratory History: Reports: Sleep Apnea Other Respiratory History: 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 Gastrointestinal History: Reports: Other (See Below) Other Gastrointestinal History: Inguinal hernia Genitourinary History: Reports: BPH, Other (See Below) Other Genitourinary History: urinary frequency Musculoskeletal History: Reports: Back Pain, Chronic Neurological History: Reports: CVA, Other (See Below) Other Neuro History: Brain bleed--in the past. - Infectious Disease History Infectious Disease History: Reports: Chicken Pox, Measles, Mumps - Past Surgical History HEENT Surgical History: Reports: Cataract Surgery, Tonsillectomy Other Cardiovascular Surgeries/Procedures: patient reports metal in heart but not pacemaker Respiratory Surgical History: Reports: None GI Surgical History: Reports: None Male Surgical History: Reports: None Neurological Surgical History: Reports: Lumbar Spine Other Neurological Surgeries/Procedures: surgery on lower back Musculoskeletal Surgical History: Reports: None Other Musculoskeletal Surgeries/Procedures:: rods in back Social & Family History - Family History Family Medical History: No Pertinent Family History - Tobacco Use Tobacco Use Status *Q: Never Tobacco User Second Hand Smoke Exposure: No - Caffeine Use Caffeine Use: Reports: Coffee, Other Other Caffeine Use: occassionally - Recreational Drug Use Recreational Drug Use: No - Living Situation & Occupation Living situation: Reports: , with Spouse Occupation: Retired H&P Review of Systems - Review of Systems: Review Of Systems: Comprehensive ROS is negative, except as noted in HPI. Exam - Exam Exam: See Below - Vital Signs Vital Signs: Last Vital Signs Temp 96.1 F L 03/09/20 14:18 Pulse 76 03/09/20 14:18 Resp 24 H 03/09/20 14:18 BP 74/45 L 03/09/20 14:18 Pulse Ox 97 03/09/20 15:15 Weight: 172 lb 12.8 oz - Exam Quality Assessment: Supplemental Oxygen General: Moderate Distress, Lethargic HEENT: Conjunctiva Clear. No: Mucosa Moist & [place] (Dry mucous membranes) Neck: Supple, Trachea Midline, 2 Lungs: Rales. No: Normal Respiratory Effort (Increased respiratory rate and effort) Cardiovascular: Regular Rate GI/Abdominal Exam: Normal Bowel Sounds, Soft, Non-Tender, No Organomegaly, No Distention, No Abnormal Bruit, No Mass Extremities: Normal Inspection, Normal Range of Motion, Non-Tender, No Pedal Edema, Normal Capillary Refill Peripheral Pulses: 1+: Posterior Tibial (L), Posterior Tibial (R), Dorsalis Pedis (L), Dorsalis Pedis (R) Neuro Extensive - Mental Status: Oriented x3 Neuro Extensive - Motor, Sensory, Reflexes: CN II-XII Intact, Normal Gait, Normal Reflexes Psychiatric: Other (Fatigued) - Patient Data Lab Results Last 24 hrs: Laboratory Results - last 24 hr 03/09/20 03/09/20 03/09/20 Range/Units 10:25 10:28 10:28 WBC 13.55 H (4.23-9.07) K/mm3 RBC 4.86 (4.63-6.08) M/mm3 Hgb 14.9 (13.7-17.5) gm/dl Hct 46.4 (40.1-51.0) % MCV 95.5 H (79.0-92.2) fl MCH 30.7 (25.7-32.2) pg MCHC 32.1 L (32.2-35.5) g/dl RDW Std Deviation 50.8 H (35.1-43.9) fL Plt Count 271 (163-337) K/mm3 MPV 9.4 (9.4-12.3) fl Neutrophils % (Manual) 88 H (40-60) % Band Neutrophils % 0 (0-10) % Lymphocytes % (Manual) 12 L (20-40) % Atypical Lymphs % 0 % Monocytes % (Manual) 0 L (2-10) % Eosinophils % (Manual) 0 L (0.8-7.0) % Basophils % (Manual) 0 L (0.2-1.2) Platelet Estimate Adequate RBC Morph Comment Normal PT 22.6 H (9.7-12.0) SECONDS INR 2.14 APTT 37.7 H (21.7-31.4) SECONDS Puncture Site ABG pH (7.35-7.45) ABG pCO2 (35.0-45.0) mmHg ABG pO2 (80.0-100.0) mmHg ABG HCO3 (22.0-26.0) meq/L ABG O2 Saturation (96.0-97.0) % ABG Base Excess (-2-2.0) Johny Test A-a Gradient mmHg O2 Delivery Device Oxygen Flow Rate FiO2 (21.00-100.00) % Sodium (136-145) mEq/L Potassium (3.5-5.1) mEq/L Chloride (98-107) mEq/L Carbon Dioxide (21-32) mEq/L Anion Gap (5-15) BUN (7-18) mg/dL Creatinine (0.7-1.3) mg/dL Est Cr Clr Drug Dosing mL/min Estimated GFR (MDRD) (>60) mL/min BUN/Creatinine Ratio (14-18) Glucose (83-115) mg/dL Lactic Acid (0.4-2.0) mmol/L Calcium (8.5-10.1) mg/dL Magnesium (1.8-2.4) mg/dl Total Bilirubin (0.2-1.0) mg/dL GGT (15-85) U/L AST (15-37) U/L ALT (16-63) U/L Alkaline Phosphatase (46-116) U/L CK-MB (CK-2) (0-3.6) ng/ml Troponin I (0.00-0.056) ng/mL C-Reactive Protein (<1.0) mg/dL NT-Pro-B Natriuret Pep 1081 H (0-450) pg/mL Total Protein (6.4-8.2) g/dl Albumin (3.4-5.0) g/dl Globulin gm/dL Albumin/Globulin Ratio (1-2) Lipase (73-393) U/L PSA Screen (0.0-4.0) ng/mL TSH 3rd Generation (0.358-3.74) uIU/mL Urine Color (Yellow) Urine Appearance (Clear) Urine pH (5.0-8.0) Ur Specific [place] (1.005-1.030) Urine Protein (Negative) Urine Glucose (UA) (Negative) Urine Ketones (Negative) Urine Occult Blood (Negative) Urine Nitrite (Negative) Urine Bilirubin (Negative) Urine Urobilinogen (0.2-1.0) Ur Leukocyte Esterase (Negative) Urine RBC (0-5) /hpf Urine WBC (0-5) /hpf Ur Epithelial Cells (0-5) /hpf Urine Bacteria (FEW) /hpf Urine Mucus (FEW) /hpf SARS-CoV-2 RNA (DEBORAH) (NEGATIVE) 03/09/20 03/09/20 03/09/20 Range/Units 10:28 10:28 10:28 WBC (4.23-9.07) K/mm3 RBC (4.63-6.08) M/mm3 Hgb (13.7-17.5) gm/dl Hct (40.1-51.0) % MCV (79.0-92.2) fl MCH (25.7-32.2) pg MCHC (32.2-35.5) g/dl RDW Std Deviation (35.1-43.9) fL Plt Count (163-337) K/mm3 MPV (9.4-12.3) fl Neutrophils % (Manual) (40-60) % Band Neutrophils % (0-10) % Lymphocytes % (Manual) (20-40) % Atypical Lymphs % % Monocytes % (Manual) (2-10) % Eosinophils % (Manual) (0.8-7.0) % Basophils % (Manual) (0.2-1.2) Platelet Estimate RBC Morph Comment PT (9.7-12.0) SECONDS INR APTT (21.7-31.4) SECONDS Puncture Site ABG pH (7.35-7.45) ABG pCO2 (35.0-45.0) mmHg ABG pO2 (80.0-100.0) mmHg ABG HCO3 (22.0-26.0) meq/L ABG O2 Saturation (96.0-97.0) % ABG Base Excess (-2-2.0) Johny Test A-a Gradient mmHg O2 Delivery Device Oxygen Flow Rate FiO2 (21.00-100.00) % Sodium 139 (136-145) mEq/L Potassium 3.6 (3.5-5.1) mEq/L Chloride 102 (98-107) mEq/L Carbon Dioxide 24 (21-32) mEq/L Anion Gap 16.6 H (5-15) BUN 17 (7-18) mg/dL Creatinine 1.1 (0.7-1.3) mg/dL Est Cr Clr Drug Dosing 49.10 mL/min Estimated GFR (MDRD) > 60 (>60) mL/min BUN/Creatinine Ratio 15.5 (14-18) Glucose 122 H (83-115) mg/dL Lactic Acid 1.5 (0.4-2.0) mmol/L Calcium 8.7 (8.5-10.1) mg/dL Magnesium 1.7 L (1.8-2.4) mg/dl Total Bilirubin 1.8 H (0.2-1.0) mg/dL GGT (15-85) U/L AST 55 H (15-37) U/L ALT 65 H (16-63) U/L Alkaline Phosphatase 158 H (46-116) U/L CK-MB (CK-2) < 0.5 (0-3.6) ng/ml Troponin I < 0.017 (0.00-0.056) ng/mL C-Reactive Protein 13.6 H* (<1.0) mg/dL NT-Pro-B Natriuret Pep (0-450) pg/mL Total Protein 7.5 (6.4-8.2) g/dl Albumin 3.3 L (3.4-5.0) g/dl Globulin 4.2 gm/dL Albumin/Globulin Ratio 0.8 L (1-2) Lipase (73-393) U/L PSA Screen (0.0-4.0) ng/mL TSH 3rd Generation 0.713 (0.358-3.74) uIU/mL Urine Color (Yellow) Urine Appearance (Clear) Urine pH (5.0-8.0) Ur Specific [place] (1.005-1.030) Urine Protein (Negative) Urine Glucose (UA) (Negative) Urine Ketones (Negative) Urine Occult Blood (Negative) Urine Nitrite (Negative) Urine Bilirubin (Negative) Urine Urobilinogen (0.2-1.0) Ur Leukocyte Esterase (Negative) Urine RBC (0-5) /hpf Urine WBC (0-5) /hpf Ur Epithelial Cells (0-5) /hpf Urine Bacteria (FEW) /hpf Urine Mucus (FEW) /hpf SARS-CoV-2 RNA (DEBORAH) (NEGATIVE) 03/09/20 03/09/20 03/09/20 Range/Units 10:28 10:28 10:40 WBC (4.23-9.07) K/mm3 RBC (4.63-6.08) M/mm3 Hgb (13.7-17.5) gm/dl Hct (40.1-51.0) % MCV (79.0-92.2) fl MCH (25.7-32.2) pg MCHC (32.2-35.5) g/dl RDW Std Deviation (35.1-43.9) fL Plt Count (163-337) K/mm3 MPV (9.4-12.3) fl Neutrophils % (Manual) (40-60) % Band Neutrophils % (0-10) % Lymphocytes % (Manual) (20-40) % Atypical Lymphs % % Monocytes % (Manual) (2-10) % Eosinophils % (Manual) (0.8-7.0) % Basophils % (Manual) (0.2-1.2) Platelet Estimate RBC Morph Comment PT (9.7-12.0) SECONDS INR APTT (21.7-31.4) SECONDS Puncture Site Rt radial ABG pH 7.46 H (7.35-7.45) ABG pCO2 32.3 L (35.0-45.0) mmHg ABG pO2 67.0 L (80.0-100.0) mmHg ABG HCO3 22.6 (22.0-26.0) meq/L ABG O2 Saturation 93.7 L (96.0-97.0) % ABG Base Excess 0.0 (-2-2.0) Johny Test Positive A-a Gradient 121 mmHg O2 Delivery Device Nasal cannula Oxygen Flow Rate 3.0 FiO2 32.00 (21.00-100.00) % Sodium (136-145) mEq/L Potassium (3.5-5.1) mEq/L Chloride (98-107) mEq/L Carbon Dioxide (21-32) mEq/L Anion Gap (5-15) BUN (7-18) mg/dL Creatinine (0.7-1.3) mg/dL Est Cr Clr Drug Dosing mL/min Estimated GFR (MDRD) (>60) mL/min BUN/Creatinine Ratio (14-18) Glucose (83-115) mg/dL Lactic Acid (0.4-2.0) mmol/L Calcium (8.5-10.1) mg/dL Magnesium (1.8-2.4) mg/dl Total Bilirubin (0.2-1.0) mg/dL GGT 144 H (15-85) U/L AST (15-37) U/L ALT (16-63) U/L Alkaline Phosphatase (46-116) U/L CK-MB (CK-2) (0-3.6) ng/ml Troponin I (0.00-0.056) ng/mL C-Reactive Protein (<1.0) mg/dL NT-Pro-B Natriuret Pep (0-450) pg/mL Total Protein (6.4-8.2) g/dl Albumin (3.4-5.0) g/dl Globulin gm/dL Albumin/Globulin Ratio (1-2) Lipase 48 L (73-393) U/L PSA Screen 15.9 H (0.0-4.0) ng/mL TSH 3rd Generation (0.358-3.74) uIU/mL Urine Color (Yellow) Urine Appearance (Clear) Urine pH (5.0-8.0) Ur Specific [place] (1.005-1.030) Urine Protein (Negative) Urine Glucose (UA) (Negative) Urine Ketones (Negative) Urine Occult Blood (Negative) Urine Nitrite (Negative) Urine Bilirubin (Negative) Urine Urobilinogen (0.2-1.0) Ur Leukocyte Esterase (Negative) Urine RBC (0-5) /hpf Urine WBC (0-5) /hpf Ur Epithelial Cells (0-5) /hpf Urine Bacteria (FEW) /hpf Urine Mucus (FEW) /hpf SARS-CoV-2 RNA (DEBORAH) (NEGATIVE) 03/09/20 03/09/20 Range/Units 10:40 11:30 WBC (4.23-9.07) K/mm3 RBC (4.63-6.08) M/mm3 Hgb (13.7-17.5) gm/dl Hct (40.1-51.0) % MCV (79.0-92.2) fl MCH (25.7-32.2) pg MCHC (32.2-35.5) g/dl RDW Std Deviation (35.1-43.9) fL Plt Count (163-337) K/mm3 MPV (9.4-12.3) fl Neutrophils % (Manual) (40-60) % Band Neutrophils % (0-10) % Lymphocytes % (Manual) (20-40) % Atypical Lymphs % % Monocytes % (Manual) (2-10) % Eosinophils % (Manual) (0.8-7.0) % Basophils % (Manual) (0.2-1.2) Platelet Estimate RBC Morph Comment PT (9.7-12.0) SECONDS INR APTT (21.7-31.4) SECONDS Puncture Site ABG pH (7.35-7.45) ABG pCO2 (35.0-45.0) mmHg ABG pO2 (80.0-100.0) mmHg ABG HCO3 (22.0-26.0) meq/L ABG O2 Saturation (96.0-97.0) % ABG Base Excess (-2-2.0) Johny Test A-a Gradient mmHg O2 Delivery Device Oxygen Flow Rate FiO2 (21.00-100.00) % Sodium (136-145) mEq/L Potassium (3.5-5.1) mEq/L Chloride (98-107) mEq/L Carbon Dioxide (21-32) mEq/L Anion Gap (5-15) BUN (7-18) mg/dL Creatinine (0.7-1.3) mg/dL Est Cr Clr Drug Dosing mL/min Estimated GFR (MDRD) (>60) mL/min BUN/Creatinine Ratio (14-18) Glucose (83-115) mg/dL Lactic Acid (0.4-2.0) mmol/L Calcium (8.5-10.1) mg/dL Magnesium (1.8-2.4) mg/dl Total Bilirubin (0.2-1.0) mg/dL GGT (15-85) U/L AST (15-37) U/L ALT (16-63) U/L Alkaline Phosphatase (46-116) U/L CK-MB (CK-2) (0-3.6) ng/ml Troponin I (0.00-0.056) ng/mL C-Reactive Protein (<1.0) mg/dL NT-Pro-B Natriuret Pep (0-450) pg/mL Total Protein (6.4-8.2) g/dl Albumin (3.4-5.0) g/dl Globulin gm/dL Albumin/Globulin Ratio (1-2) Lipase (73-393) U/L PSA Screen (0.0-4.0) ng/mL TSH 3rd Generation (0.358-3.74) uIU/mL Urine Color Yellow (Yellow) Urine Appearance Clear (Clear) Urine pH 6.5 (5.0-8.0) Ur Specific [place] 1.020 (1.005-1.030) Urine Protein 2+ H (Negative) Urine Glucose (UA) Negative (Negative) Urine Ketones 1+ H (Negative) Urine Occult Blood 1+ H (Negative) Urine Nitrite Negative (Negative) Urine Bilirubin Negative (Negative) Urine Urobilinogen 0.2 (0.2-1.0) Ur Leukocyte Esterase Negative (Negative) Urine RBC 0-5 (0-5) /hpf Urine WBC 0-5 (0-5) /hpf Ur Epithelial Cells 0-5 (0-5) /hpf Urine Bacteria Few (FEW) /hpf Urine Mucus Moderate H (FEW) /hpf SARS-CoV-2 RNA (DEBORAH) Negative (NEGATIVE) Result Diagrams: 03/09/20 10:28 03/09/20 10:28 Sepsis Event Note - Evaluation Sepsis Screening Result: Severe Sepsis Risk - Focused Exam Vital Signs: Vital Signs Temp Temp Temp Pulse Resp BP Pulse Ox 03/09/20 15:15 03/09/20 14:18 96.1 F L 76 24 H 74/45 L 94 L 03/09/20 12:36 104 F H 03/09/20 11:35 104.0 F H 98 22 H 134/71 91 L 03/09/20 10:05 99.1 F 106 H 34 H 113/56 L 88 L Pulse Ox 03/09/20 15:15 97 03/09/20 14:18 03/09/20 12:36 03/09/20 11:35 03/09/20 10:05 - Problem List (1) Severe sepsis SNOMED Code(s): 61138994 ICD Code: A41.9 - SEPSIS, UNSPECIFIED ORGANISM; R65.20 - SEVERE SEPSIS WITHOUT SEPTIC SHOCK Status: Acute Current Visit: Yes (2) Bilateral pneumonia SNOMED Code(s): 835863561 ICD Code: J18.9 - PNEUMONIA, UNSPECIFIED ORGANISM Status: Acute Current Visit: Yes Qualifiers: Pneumonia type: due to unspecified organism Lung location: unspecified part of lung Qualified Code(s): J18.9 - Pneumonia, unspecified organism Problem List Initiated/Reviewed/Updated: Yes Orders Last 24hrs: Active Orders 24 hr Category Date Time Status Patient Status [ADT] Routine ADT 03/09/20 14:38 Active Bladder Scan [RC] ASDIRECTED Care 03/09/20 10:39 Active Intake and Output Strict [RC] ASDIRECTED Care 03/09/20 15:15 Active Oxygen Therapy [RC] ASDIRECTED Care 03/09/20 10:38 Active RT Aerosol Therapy [RC] ASDIRECTED Care 03/09/20 15:38 Active RT Chest Physiotherapy [RC] ASDIRECTED Care 03/09/20 15:15 Active RT Incentive Spirometry [RC] ASDIRECTED Care 03/09/20 15:15 Active Up With Assistance [RC] ASDIRECTED Care 03/09/20 15:35 Active VTE/DVT Education [RC] PER UNIT ROUTINE Care 03/09/20 15:35 Active Vital Signs [RC] ASDIRECTED Care 03/09/20 15:35 Active PT Evaluation and Treatment [CONS] Routine Cons 03/09/20 15:35 Active Regular Diet [DIET] Diet 03/09/20 Dinner Active Chest Abdomen Pelvis w Cont [CT] Stat Exams 03/09/20 11:50 Taken CULTURE BLOOD [BC] Stat Lab 03/09/20 10:28 Received CULTURE BLOOD [BC] Stat Lab 03/09/20 10:35 Received CULTURE SPUTUM + SMEAR [RM] Routine Lab 03/09/20 15:17 Ordered STREP PNEUMONIAE ANTIGEN [MREF] Routine Lab 03/09/20 15:15 Ordered Acetaminophen [TylenoL] Med 03/09/20 15:35 Active 650 mg PO Q4H PRN Albuterol [Proventil Neb Soln] Med 03/09/20 15:35 Active 2.5 mg NEB Q2H PRN Albuterol/Ipratropium [DuoNeb 3.0-0.5 MG/3 ML] Med 03/09/20 15:35 Active 3 ml NEB Q4H PRN Azithromycin [Zithromax] 500 mg Med 03/09/20 16:00 Active Sodium Chloride 0.9% [Normal Saline (AdvBag)] 250 ml IV Q24H Dextrose 5%-0.9% NaCl [Dextrose 5%-Normal Saline] 1,000 Med 03/09/20 10:45 Active ml IV ASDIRECTED Docusate Sodium/Sennosides [Senna Plus] Med 03/09/20 15:35 Active 1 tab PO BID PRN Lactated Ringers [Ringers, Lactated] 1,000 ml Med 03/09/20 15:16 Active IV .BOLUS Ondansetron [Zofran] Med 03/09/20 15:35 Active 4 mg IV Q4H PRN Pharmacy to Dose - Warfarin Med 03/09/20 15:30 Pending 1 dose .XX ASDIRECTED Sodium Chloride 0.9% [Saline Flush] Med 03/09/20 11:55 Active 10 ml FLUSH ONETIME PRN bisacodyL [Dulcolax] Med 03/09/20 15:35 Active 5 mg PO DAILY PRN oxyCODONE Med 03/09/20 15:35 Active 5 mg PO Q4H PRN polyethylene glycoL 3350 [MiraLAX] Med 03/09/20 15:35 Active 17 gm PO DAILY PRN Blood Culture x2 Reflex Set [OM.PC] Stat Oth 03/09/20 10:40 Ordered Resuscitation Status Routine Resus Stat 03/09/20 15:35 Ordered Medication Orders Acetaminophen (Tylenol) 650 mg PO Q4H PRN PRN Reason: Pain (Mild 1-3)/fever Albuterol (Proventil Neb Soln) 2.5 mg NEB Q2H PRN PRN Reason: Shortness Of Breath/wheezing Albuterol/Ipratropium (Duoneb 3.0-0.5 Mg/3 Ml) 3 ml NEB Q4H PRN PRN Reason: Shortness Of Breath/wheezing Bisacodyl (Dulcolax) 5 mg PO DAILY PRN PRN Reason: Constipation Dextrose/Sodium Chloride (Dextrose 5%-Normal Saline) 1,000 mls @ 75 mls/hr IV ASDIRECTED [facility] Last Infusion: 03/09/20 14:45 Dose: 75 mls/hr Documented by: Infusion: 03/09/20 14:15 Dose: 999 mls/hr Documented by: Admin: 03/09/20 11:15 Dose: 75 mls/hr Documented by: GEORGE Lactated Ringer's (Ringers, Lactated) 1,000 mls @ 999 mls/hr IV .BOLUS ONE Stop: 03/09/20 16:16 Last Admin: 03/09/20 15:30 Dose: 999 mls/hr Documented by: NIKHIL Azithromycin 500 mg/ Sodium (Chloride) 250 mls @ 250 mls/hr IV Q24H [facility] Stop: 03/11/20 16:59 Ondansetron HCl (Zofran) 4 mg IV Q4H PRN PRN Reason: Nausea/Vomiting Oxycodone HCl (Oxycodone) 5 mg PO Q4H PRN PRN Reason: Pain (moderate 4-6) Polyethylene Glycol (Miralax) 17 gm PO DAILY PRN PRN Reason: Constipation Senna/Docusate Sodium (Senna Plus) 1 tab PO BID PRN PRN Reason: Constipation Sodium Chloride (Saline Flush) 10 ml FLUSH ONETIME PRN PRN Reason: Keep Vein Open Last Admin: 03/09/20 12:19 Dose: 10 ml Documented by: ZULEIKA Warfarin Sodium (Pharmacy To Dose - Warfarin) 1 dose .XX ASDIRECTED [facility] Assessment/Plan Comment:: Assessment 85-year-old male with no prior respiratory history presented to the emergency department with weakness, fever, and cough. Patient is found to be febrile with hypoxemia and bilateral pneumonia on CT scan. Severe sepsis Pneumonia Mild bilateral pleural effusions Respiratory alkalosis from tachypnea * Patient presented with temperature of 40 C, 104 F, with hypoxemia and shortness of breath. * Patient with significant white count of 13.6 With 88% neutrophils in 0 bands * CRP 13.6 * Lactic acid 1.5 * He is requiring 3 L to keep SPO2 in the mid 90s * ABG: pH 7.46, PCO2 of 32.3, PaO2 57.0, saturations 94% on 3 L via nasal cannula. * Covid screen negative * Given Rocephin 2 g in the emergency department * Blood cultures x2 in the ER * Blood pressures Dropped to 74/45 then after 50 mL of D5 NS fluid bolus improved to 86/48. * Patient was given Lasix 40 mg IV in the emergency department prior to his hypotension. * Although patient said he had no history of lung disease it appears that Proventil HFA and Breo Ellipta is on his home medication list. * Patient does have a history of sleep apnea and wears CPAP at night Atrial fibrillation with rate control Elevated BNP * EKG showed A. fib with rate at 113. Diffuse ST-T wave changes in lead V3 to lead V6 * Rate at admission in the 60s. 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 Constipated * He will likely need medical management. Plan * Admit to ICU * 1000 mL LR bolus and recheck blood pressure * Continue Rocephin 2 g every 24 hours * Add azithromycin 5 mg daily x3 days * FiO2 to keep SPO2 greater than 91% * Check urine for pneumococcal antigen * Sputum culture * Follow blood cultures * Incentive spirometer and Acapella * Physical therapy * Hold metoprolol for now until blood pressure is better controlled * Pharmacy to dose warfarin. Likely INR will increase over the next couple of days secondary to antibiotics. * Continue aspirin * Pepcid for GI prophylaxis * Patient will need a repeat PSA as an outpatient * Recheck CBC, CMP, and CRP in the morning * VTE prophylaxis with Coumadin * CODE STATUS: Full code - Mortality Measure Prognosis:: Poor
[2020-03-09] MEDS ORDERED: Lactated Ringers 500 ML IV ONE (16:52)
[2020-03-09] MEDS ORDERED: Lactated Ringers 1,000 ML ONE (17:01)
[2020-03-09] MEDS: Azithromycin 500 MG in Sodium Chloride 0.9% 250 ML IV SCH (17:15)
[2020-03-09] MEDS ORDERED: Magnesium Sulfate/Water 2 GM/50 ML BAG IV ONE (18:00)
[2020-03-09] MEDS ORDERED: Magnesium Sulfate/Water 2 GM/50 ML BAG IV SCH (18:00)
[2020-03-09] MEDS ORDERED: Warfarin 2.5 MG Tab PO ONE ×2 (18:00→21:00)
[2020-03-09] MEDS ORDERED: Sodium Chloride 0.9% 1,000 ML IV SCH (18:45)
[2020-03-09] MEDS: methylPREDNISolone Sodium Succinate 40 MG/1 ML SDV IVPUSH SCH (20:13)
[2020-03-10] MEDS: methylPREDNISolone Sodium Succinate 40 MG/1 ML SDV IVPUSH SCH ×3 (04:32→18:48)
[2020-03-10] MEDS: Metoprolol Succinate 25 MG Tab.ER PO SCH (08:05)
--- NOTE | 2020-03-10 08:25 | CT ---
CT chest Technique: Multiple axial sections were obtained from above the lung apices inferiorly through the lung bases. Intravenous contrast was utilized. Findings: Thoracic aorta shows atherosclerotic change with no aneurysm. Small mediastinal lymph nodes are noted which are believed to be within normal limits. Coronary artery calcification appears to be present. No pericardial thickening is appreciated. Areas of consolidation are noted within both posterior lungs. Minimal density is noted within the inferior right upper lung. Very minimal pleural effusions are seen bilaterally. Bone window settings were reviewed which show no acute osseous finding. Impression: 1. Consolidation within both posterior lungs and inferior right upper lung. Minimal pleural effusions are noted. Findings may represent prominent areas of atelectasis as well as pneumonia. 2. No other acute abnormality is identified on CT study of the chest. Diagnostic code #3 I agree with preliminary report from [facility], finalized on 03/09/20, 1:[address] [address] abdomen and pelvis Technique: Multiple axial sections were obtained from above the dome of the diaphragm inferiorly through the pubic symphysis. Delayed images were also obtained through the bladder. Reconstructed coronal and sagittal images were obtained. Findings: Liver contains no focal parenchymal abnormality. Spleen appears within normal limits. Adrenal glands show no nodule. No discrete pancreatic abnormality is appreciated. Gallbladder contains no calcified gallstones. Kidneys show symmetric contrast enhancement. Cysts are noted within both kidneys. Largest cyst is within the upper left kidney measuring 4.2 cm. Delayed images show contrast within the distal ureter and within the bladder. Aorta shows diffuse atherosclerotic change with no aneurysm. No retroperitoneal adenopathy or mesenteric abnormalities are noted. No pelvic mass or adenopathy is seen. There is a left inguinal hernia being seen which shows descent of the sigmoid colon into this finding. No definite findings of bowel obstruction are seen. L4-5 and L5-S1. Trans-pedicle screws are seen within the L4-S1 levels. Mild scattered degenerative change is also noted. Minimal increased stool within the rectum is seen. Impression: 1. Left inguinal hernia containing a loop of nondilated sigmoid colon. 2. Other findings as noted above. Nothing acute is appreciated on CT study of the abdomen and pelvis. Diagnostic code #3 I agree with preliminary report from [facility], finalized on 03/09/20, 1:51 PM [employer]IOR [employer]
--- NOTE | 2020-03-10 10:28 | PCM.PN ---
- General Info Date of Service: 03/10/20 Admission Dx/Problem (Free Text): Admission Diagnosis/Problem Admission Diagnosis/Problem Pneumonia Subjective Update: Patient and his state that he is doing much better today. He is surprised about how well he feels compared to when he was admitted yesterday. Functional Status: Reports: Pain Controlled - Review of Systems General: Reports: No Symptoms HEENT: Reports: No Symptoms Pulmonary: Reports: Cough, Sputum Cardiovascular: Reports: No Symptoms Gastrointestinal: Reports: No Symptoms Musculoskeletal: Reports: No Symptoms Neurological: Reports: No Symptoms Psychiatric: Reports: No Symptoms - Patient Data Vitals - Most Recent: Last Vital Signs Temp 97.3 F 03/10/20 08:00 Pulse 65 03/10/20 08:05 Resp 18 03/10/20 08:00 BP 103/82 03/10/20 08:05 Pulse Ox 91 L 03/10/20 08:00 Weight - Most Recent: 174 lb I&O - Last 24 Hours: Intake & Output 03/09/20 03/10/20 03/10/20 22:59 06:59 14:59 Intake Total 430 50 600 Output Total 260 Balance 170 50 600 Lab Results Last 24 Hours: Laboratory Results - last 24 hr 03/09/20 03/09/20 03/09/20 Range/Units 10:25 10:28 10:28 WBC 13.55 H (4.23-9.07) K/mm3 RBC 4.86 (4.63-6.08) M/mm3 Hgb 14.9 (13.7-17.5) gm/dl Hct 46.4 (40.1-51.0) % MCV 95.5 H (79.0-92.2) fl MCH 30.7 (25.7-32.2) pg MCHC 32.1 L (32.2-35.5) g/dl RDW Std Deviation 50.8 H (35.1-43.9) fL Plt Count 271 (163-337) K/mm3 MPV 9.4 (9.4-12.3) fl Neut % (Auto) (34.0-67.9) % Lymph % (Auto) (21.8-53.1) % Richardson % (Auto) (5.3-12.2) % Eos % (Auto) (0.8-7.0) Baso % (Auto) (0.1-1.2) % Neut # (Auto) (1.78-5.38) K/mm3 Lymph # (Auto) (1.32-3.57) K/mm3 Richardson # (Auto) (0.30-0.82) K/mm3 Eos # (Auto) (0.04-0.54) K/mm3 Baso # (Auto) (0.01-0.08) K/mm3 Neutrophils % (Manual) 88 H (40-60) % Band Neutrophils % 0 (0-10) % Lymphocytes % (Manual) 12 L (20-40) % Atypical Lymphs % 0 % Monocytes % (Manual) 0 L (2-10) % Eosinophils % (Manual) 0 L (0.8-7.0) % Basophils % (Manual) 0 L (0.2-1.2) Manual Slide Review Platelet Estimate Adequate RBC Morph Comment Normal PT 22.6 H (9.7-12.0) SECONDS INR 2.14 APTT 37.7 H (21.7-31.4) SECONDS Puncture Site ABG pH (7.35-7.45) ABG pCO2 (35.0-45.0) mmHg ABG pO2 (80.0-100.0) mmHg ABG HCO3 (22.0-26.0) meq/L ABG O2 Saturation (96.0-97.0) % ABG Base Excess (-2-2.0) Johny Test A-a Gradient mmHg O2 Delivery Device Oxygen Flow Rate FiO2 (21.00-100.00) % Sodium (136-145) mEq/L Potassium (3.5-5.1) mEq/L Chloride (98-107) mEq/L Carbon Dioxide (21-32) mEq/L Anion Gap (5-15) BUN (7-18) mg/dL Creatinine (0.7-1.3) mg/dL Est Cr Clr Drug Dosing mL/min Estimated GFR (MDRD) (>60) mL/min BUN/Creatinine Ratio (14-18) Glucose (83-115) mg/dL Lactic Acid (0.4-2.0) mmol/L Calcium (8.5-10.1) mg/dL Magnesium (1.8-2.4) mg/dl Total Bilirubin (0.2-1.0) mg/dL GGT (15-85) U/L AST (15-37) U/L ALT (16-63) U/L Alkaline Phosphatase (46-116) U/L CK-MB (CK-2) (0-3.6) ng/ml Troponin I (0.00-0.056) ng/mL C-Reactive Protein (<1.0) mg/dL NT-Pro-B Natriuret Pep 1081 H (0-450) pg/mL Total Protein (6.4-8.2) g/dl Albumin (3.4-5.0) g/dl Globulin gm/dL Albumin/Globulin Ratio (1-2) Lipase (73-393) U/L PSA Screen (0.0-4.0) ng/mL TSH 3rd Generation (0.358-3.74) uIU/mL Urine Color (Yellow) Urine Appearance (Clear) Urine pH (5.0-8.0) Ur Specific [place] (1.005-1.030) Urine Protein (Negative) Urine Glucose (UA) (Negative) Urine Ketones (Negative) Urine Occult Blood (Negative) Urine Nitrite (Negative) Urine Bilirubin (Negative) Urine Urobilinogen (0.2-1.0) Ur Leukocyte Esterase (Negative) Urine RBC (0-5) /hpf Urine WBC (0-5) /hpf Ur Epithelial Cells (0-5) /hpf Urine Bacteria (FEW) /hpf Urine Mucus (FEW) /hpf SARS-CoV-2 RNA (DEBORAH) (NEGATIVE) 03/09/20 03/09/20 03/09/20 Range/Units 10:28 10:28 10:28 WBC (4.23-9.07) K/mm3 RBC (4.63-6.08) M/mm3 Hgb (13.7-17.5) gm/dl Hct (40.1-51.0) % MCV (79.0-92.2) fl MCH (25.7-32.2) pg MCHC (32.2-35.5) g/dl RDW Std Deviation (35.1-43.9) fL Plt Count (163-337) K/mm3 MPV (9.4-12.3) fl Neut % (Auto) (34.0-67.9) % Lymph % (Auto) (21.8-53.1) % Richardson % (Auto) (5.3-12.2) % Eos % (Auto) (0.8-7.0) Baso % (Auto) (0.1-1.2) % Neut # (Auto) (1.78-5.38) K/mm3 Lymph # (Auto) (1.32-3.57) K/mm3 Richardson # (Auto) (0.30-0.82) K/mm3 Eos # (Auto) (0.04-0.54) K/mm3 Baso # (Auto) (0.01-0.08) K/mm3 Neutrophils % (Manual) (40-60) % Band Neutrophils % (0-10) % Lymphocytes % (Manual) (20-40) % Atypical Lymphs % % Monocytes % (Manual) (2-10) % Eosinophils % (Manual) (0.8-7.0) % Basophils % (Manual) (0.2-1.2) Manual Slide Review Platelet Estimate RBC Morph Comment PT (9.7-12.0) SECONDS INR APTT (21.7-31.4) SECONDS Puncture Site ABG pH (7.35-7.45) ABG pCO2 (35.0-45.0) mmHg ABG pO2 (80.0-100.0) mmHg ABG HCO3 (22.0-26.0) meq/L ABG O2 Saturation (96.0-97.0) % ABG Base Excess (-2-2.0) Johny Test A-a Gradient mmHg O2 Delivery Device Oxygen Flow Rate FiO2 (21.00-100.00) % Sodium 139 (136-145) mEq/L Potassium 3.6 (3.5-5.1) mEq/L Chloride 102 (98-107) mEq/L Carbon Dioxide 24 (21-32) mEq/L Anion Gap 16.6 H (5-15) BUN 17 (7-18) mg/dL Creatinine 1.1 (0.7-1.3) mg/dL Est Cr Clr Drug Dosing 49.10 mL/min Estimated GFR (MDRD) > 60 (>60) mL/min BUN/Creatinine Ratio 15.5 (14-18) Glucose 122 H (83-115) mg/dL Lactic Acid 1.5 (0.4-2.0) mmol/L Calcium 8.7 (8.5-10.1) mg/dL Magnesium 1.7 L (1.8-2.4) mg/dl Total Bilirubin 1.8 H (0.2-1.0) mg/dL GGT (15-85) U/L AST 55 H (15-37) U/L ALT 65 H (16-63) U/L Alkaline Phosphatase 158 H (46-116) U/L CK-MB (CK-2) < 0.5 (0-3.6) ng/ml Troponin I < 0.017 (0.00-0.056) ng/mL C-Reactive Protein 13.6 H* (<1.0) mg/dL NT-Pro-B Natriuret Pep (0-450) pg/mL Total Protein 7.5 (6.4-8.2) g/dl Albumin 3.3 L (3.4-5.0) g/dl Globulin 4.2 gm/dL Albumin/Globulin Ratio 0.8 L (1-2) Lipase (73-393) U/L PSA Screen (0.0-4.0) ng/mL TSH 3rd Generation 0.713 (0.358-3.74) uIU/mL Urine Color (Yellow) Urine Appearance (Clear) Urine pH (5.0-8.0) Ur Specific [place] (1.005-1.030) Urine Protein (Negative) Urine Glucose (UA) (Negative) Urine Ketones (Negative) Urine Occult Blood (Negative) Urine Nitrite (Negative) Urine Bilirubin (Negative) Urine Urobilinogen (0.2-1.0) Ur Leukocyte Esterase (Negative) Urine RBC (0-5) /hpf Urine WBC (0-5) /hpf Ur Epithelial Cells (0-5) /hpf Urine Bacteria (FEW) /hpf Urine Mucus (FEW) /hpf SARS-CoV-2 RNA (DEBORAH) (NEGATIVE) 03/09/20 03/09/20 03/09/20 Range/Units 10:28 10:28 10:40 WBC (4.23-9.07) K/mm3 RBC (4.63-6.08) M/mm3 Hgb (13.7-17.5) gm/dl Hct (40.1-51.0) % MCV (79.0-92.2) fl MCH (25.7-32.2) pg MCHC (32.2-35.5) g/dl RDW Std Deviation (35.1-43.9) fL Plt Count (163-337) K/mm3 MPV (9.4-12.3) fl Neut % (Auto) (34.0-67.9) % Lymph % (Auto) (21.8-53.1) % Richardson % (Auto) (5.3-12.2) % Eos % (Auto) (0.8-7.0) Baso % (Auto) (0.1-1.2) % Neut # (Auto) (1.78-5.38) K/mm3 Lymph # (Auto) (1.32-3.57) K/mm3 Richardson # (Auto) (0.30-0.82) K/mm3 Eos # (Auto) (0.04-0.54) K/mm3 Baso # (Auto) (0.01-0.08) K/mm3 Neutrophils % (Manual) (40-60) % Band Neutrophils % (0-10) % Lymphocytes % (Manual) (20-40) % Atypical Lymphs % % Monocytes % (Manual) (2-10) % Eosinophils % (Manual) (0.8-7.0) % Basophils % (Manual) (0.2-1.2) Manual Slide Review Platelet Estimate RBC Morph Comment PT (9.7-12.0) SECONDS INR APTT (21.7-31.4) SECONDS Puncture Site Rt radial ABG pH 7.46 H (7.35-7.45) ABG pCO2 32.3 L (35.0-45.0) mmHg ABG pO2 67.0 L (80.0-100.0) mmHg ABG HCO3 22.6 (22.0-26.0) meq/L ABG O2 Saturation 93.7 L (96.0-97.0) % ABG Base Excess 0.0 (-2-2.0) Johny Test Positive A-a Gradient 121 mmHg O2 Delivery Device Nasal cannula Oxygen Flow Rate 3.0 FiO2 32.00 (21.00-100.00) % Sodium (136-145) mEq/L Potassium (3.5-5.1) mEq/L Chloride (98-107) mEq/L Carbon Dioxide (21-32) mEq/L Anion Gap (5-15) BUN (7-18) mg/dL Creatinine (0.7-1.3) mg/dL Est Cr Clr Drug Dosing mL/min Estimated GFR (MDRD) (>60) mL/min BUN/Creatinine Ratio (14-18) Glucose (83-115) mg/dL Lactic Acid (0.4-2.0) mmol/L Calcium (8.5-10.1) mg/dL Magnesium (1.8-2.4) mg/dl Total Bilirubin (0.2-1.0) mg/dL GGT 144 H (15-85) U/L AST (15-37) U/L ALT (16-63) U/L Alkaline Phosphatase (46-116) U/L CK-MB (CK-2) (0-3.6) ng/ml Troponin I (0.00-0.056) ng/mL C-Reactive Protein (<1.0) mg/dL NT-Pro-B Natriuret Pep (0-450) pg/mL Total Protein (6.4-8.2) g/dl Albumin (3.4-5.0) g/dl Globulin gm/dL Albumin/Globulin Ratio (1-2) Lipase 48 L (73-393) U/L PSA Screen 15.9 H (0.0-4.0) ng/mL TSH 3rd Generation (0.358-3.74) uIU/mL Urine Color (Yellow) Urine Appearance (Clear) Urine pH (5.0-8.0) Ur Specific [place] (1.005-1.030) Urine Protein (Negative) Urine Glucose (UA) (Negative) Urine Ketones (Negative) Urine Occult Blood (Negative) Urine Nitrite (Negative) Urine Bilirubin (Negative) Urine Urobilinogen (0.2-1.0) Ur Leukocyte Esterase (Negative) Urine RBC (0-5) /hpf Urine WBC (0-5) /hpf Ur Epithelial Cells (0-5) /hpf Urine Bacteria (FEW) /hpf Urine Mucus (FEW) /hpf SARS-CoV-2 RNA (DEBORAH) (NEGATIVE) 03/09/20 03/09/20 03/10/20 Range/Units 10:40 11:30 05:38 WBC (4.23-9.07) K/mm3 RBC (4.63-6.08) M/mm3 Hgb (13.7-17.5) gm/dl Hct (40.1-51.0) % MCV (79.0-92.2) fl MCH (25.7-32.2) pg MCHC (32.2-35.5) g/dl RDW Std Deviation (35.1-43.9) fL Plt Count (163-337) K/mm3 MPV (9.4-12.3) fl Neut % (Auto) (34.0-67.9) % Lymph % (Auto) (21.8-53.1) % Richardson % (Auto) (5.3-12.2) % Eos % (Auto) (0.8-7.0) Baso % (Auto) (0.1-1.2) % Neut # (Auto) (1.78-5.38) K/mm3 Lymph # (Auto) (1.32-3.57) K/mm3 Richardson # (Auto) (0.30-0.82) K/mm3 Eos # (Auto) (0.04-0.54) K/mm3 Baso # (Auto) (0.01-0.08) K/mm3 Neutrophils % (Manual) (40-60) % Band Neutrophils % (0-10) % Lymphocytes % (Manual) (20-40) % Atypical Lymphs % % Monocytes % (Manual) (2-10) % Eosinophils % (Manual) (0.8-7.0) % Basophils % (Manual) (0.2-1.2) Manual Slide Review Platelet Estimate RBC Morph Comment PT (9.7-12.0) SECONDS INR APTT (21.7-31.4) SECONDS Puncture Site ABG pH (7.35-7.45) ABG pCO2 (35.0-45.0) mmHg ABG pO2 (80.0-100.0) mmHg ABG HCO3 (22.0-26.0) meq/L ABG O2 Saturation (96.0-97.0) % ABG Base Excess (-2-2.0) Johny Test A-a Gradient mmHg O2 Delivery Device Oxygen Flow Rate FiO2 (21.00-100.00) % Sodium 139 (136-145) mEq/L Potassium 3.9 (3.5-5.1) mEq/L Chloride 103 (98-107) mEq/L Carbon Dioxide 23 (21-32) mEq/L Anion Gap 16.9 H (5-15) BUN 17 (7-18) mg/dL Creatinine 0.9 (0.7-1.3) mg/dL Est Cr Clr Drug Dosing 60.01 mL/min Estimated GFR (MDRD) > 60 (>60) mL/min BUN/Creatinine Ratio 18.9 H (14-18) Glucose 153 H (83-115) mg/dL Lactic Acid (0.4-2.0) mmol/L Calcium 8.7 (8.5-10.1) mg/dL Magnesium (1.8-2.4) mg/dl Total Bilirubin 0.9 (0.2-1.0) mg/dL GGT (15-85) U/L AST 34 (15-37) U/L ALT 47 (16-63) U/L Alkaline Phosphatase 140 H (46-116) U/L CK-MB (CK-2) (0-3.6) ng/ml Troponin I (0.00-0.056) ng/mL C-Reactive Protein (<1.0) mg/dL NT-Pro-B Natriuret Pep (0-450) pg/mL Total Protein 6.8 (6.4-8.2) g/dl Albumin 2.7 L (3.4-5.0) g/dl Globulin 4.1 gm/dL Albumin/Globulin Ratio 0.7 L (1-2) Lipase (73-393) U/L PSA Screen (0.0-4.0) ng/mL TSH 3rd Generation (0.358-3.74) uIU/mL Urine Color Yellow (Yellow) Urine Appearance Clear (Clear) Urine pH 6.5 (5.0-8.0) Ur Specific [place] 1.020 (1.005-1.030) Urine Protein 2+ H (Negative) Urine Glucose (UA) Negative (Negative) Urine Ketones 1+ H (Negative) Urine Occult Blood 1+ H (Negative) Urine Nitrite Negative (Negative) Urine Bilirubin Negative (Negative) Urine Urobilinogen 0.2 (0.2-1.0) Ur Leukocyte Esterase Negative (Negative) Urine RBC 0-5 (0-5) /hpf Urine WBC 0-5 (0-5) /hpf Ur Epithelial Cells 0-5 (0-5) /hpf Urine Bacteria Few (FEW) /hpf Urine Mucus Moderate H (FEW) /hpf SARS-CoV-2 RNA (DEBORAH) Negative (NEGATIVE) 03/10/20 03/10/20 03/10/20 Range/Units 05:48 05:48 05:48 WBC 18.23 H (4.23-9.07) K/mm3 RBC 4.31 L (4.63-6.08) M/mm3 Hgb 13.4 L D (13.7-17.5) gm/dl Hct 41.4 (40.1-51.0) % MCV 96.1 H (79.0-92.2) fl MCH 31.1 (25.7-32.2) pg MCHC 32.4 (32.2-35.5) g/dl RDW Std Deviation 50.1 H (35.1-43.9) fL Plt Count 256 (163-337) K/mm3 MPV 9.6 (9.4-12.3) fl Neut % (Auto) 85.4 H (34.0-67.9) % Lymph % (Auto) 10.1 L (21.8-53.1) % Richardson % (Auto) 4.1 L (5.3-12.2) % Eos % (Auto) 0 L (0.8-7.0) Baso % (Auto) 0.1 (0.1-1.2) % Neut # (Auto) 15.58 H (1.78-5.38) K/mm3 Lymph # (Auto) 1.85 (1.32-3.57) K/mm3 Richardson # (Auto) 0.74 (0.30-0.82) K/mm3 Eos # (Auto) 0.00 L (0.04-0.54) K/mm3 Baso # (Auto) 0.01 (0.01-0.08) K/mm3 Neutrophils % (Manual) (40-60) % Band Neutrophils % (0-10) % Lymphocytes % (Manual) (20-40) % Atypical Lymphs % % Monocytes % (Manual) (2-10) % Eosinophils % (Manual) (0.8-7.0) % Basophils % (Manual) (0.2-1.2) Manual Slide Review Normal smear Platelet Estimate RBC Morph Comment PT 27.7 H (9.7-12.0) SECONDS INR 2.64 APTT (21.7-31.4) SECONDS Puncture Site ABG pH (7.35-7.45) ABG pCO2 (35.0-45.0) mmHg ABG pO2 (80.0-100.0) mmHg ABG HCO3 (22.0-26.0) meq/L ABG O2 Saturation (96.0-97.0) % ABG Base Excess (-2-2.0) Johny Test A-a Gradient mmHg O2 Delivery Device Oxygen Flow Rate FiO2 (21.00-100.00) % Sodium (136-145) mEq/L Potassium (3.5-5.1) mEq/L Chloride (98-107) mEq/L Carbon Dioxide (21-32) mEq/L Anion Gap (5-15) BUN (7-18) mg/dL Creatinine (0.7-1.3) mg/dL Est Cr Clr Drug Dosing mL/min Estimated GFR (MDRD) (>60) mL/min BUN/Creatinine Ratio (14-18) Glucose (83-115) mg/dL Lactic Acid (0.4-2.0) mmol/L Calcium (8.5-10.1) mg/dL Magnesium 2.3 (1.8-2.4) mg/dl Total Bilirubin (0.2-1.0) mg/dL GGT (15-85) U/L AST (15-37) U/L ALT (16-63) U/L Alkaline Phosphatase (46-116) U/L CK-MB (CK-2) (0-3.6) ng/ml Troponin I (0.00-0.056) ng/mL C-Reactive Protein 23.9 H* (<1.0) mg/dL NT-Pro-B Natriuret Pep (0-450) pg/mL Total Protein (6.4-8.2) g/dl Albumin (3.4-5.0) g/dl Globulin gm/dL Albumin/Globulin Ratio (1-2) Lipase (73-393) U/L PSA Screen (0.0-4.0) ng/mL TSH 3rd Generation (0.358-3.74) uIU/mL Urine Color (Yellow) Urine Appearance (Clear) Urine pH (5.0-8.0) Ur Specific [place] (1.005-1.030) Urine Protein (Negative) Urine Glucose (UA) (Negative) Urine Ketones (Negative) Urine Occult Blood (Negative) Urine Nitrite (Negative) Urine Bilirubin (Negative) Urine Urobilinogen (0.2-1.0) Ur Leukocyte Esterase (Negative) Urine RBC (0-5) /hpf Urine WBC (0-5) /hpf Ur Epithelial Cells (0-5) /hpf Urine Bacteria (FEW) /hpf Urine Mucus (FEW) /hpf SARS-CoV-2 RNA (DEBORAH) (NEGATIVE) Vicente Results Last 24 Hours: Microbiology 03/09/20 17:27 Gram Stain - Preliminary Sputum - Expectorated Sputum Culture - Preliminary Med Orders - Current: Current Medications Acetaminophen (Tylenol) 650 mg PO Q4H PRN PRN Reason: Pain (Mild 1-3)/fever Albuterol (Proventil Neb Soln) 2.5 mg NEB Q2H PRN PRN Reason: Shortness Of Breath/wheezing Albuterol/Ipratropium (Duoneb 3.0-0.5 Mg/3 Ml) 3 ml NEB Q4H PRN PRN Reason: Shortness Of Breath/wheezing Last Admin: 03/09/20 20:58 Dose: 3 ml Documented by: Bisacodyl (Dulcolax) 5 mg PO DAILY PRN PRN Reason: Constipation Last Admin: 03/10/20 09:10 Dose: 5 mg Documented by: Azithromycin 500 mg/ Sodium (Chloride) 250 mls @ 250 mls/hr IV Q24H [facility] Stop: 03/11/20 16:59 Last Admin: 03/09/20 17:15 Dose: 250 mls/hr Documented by: Ceftriaxone Sodium 2 gm/ (Sodium Chloride) 100 mls @ 200 mls/hr IV Q24H [facility] Methylprednisolone Sodium Succinate (Solu-Medrol) 60 mg IVPUSH Q8H [facility] Last Admin: 03/10/20 04:32 Dose: 60 mg Documented by: Metoprolol Succinate (Toprol Xl) 25 mg PO DAILY [facility] Last Admin: 03/10/20 08:05 Dose: 25 mg Documented by: Ondansetron HCl (Zofran) 4 mg IV Q4H PRN PRN Reason: Nausea/Vomiting Oxycodone HCl (Oxycodone) 5 mg PO Q4H PRN PRN Reason: Pain (moderate 4-6) Polyethylene Glycol (Miralax) 17 gm PO DAILY PRN PRN Reason: Constipation Last Admin: 03/10/20 08:05 Dose: 17 gm Documented by: Senna/Docusate Sodium (Senna Plus) 1 tab PO BID PRN PRN Reason: Constipation Warfarin Sodium (Pharmacy To Dose - Warfarin) 1 dose .XX ASDIRECTED PRN PRN Reason: RX TO DOSE WARFARIN Warfarin Sodium (Coumadin) 2 mg PO QPM EDI Stop: 03/10/20 18:01 Discontinued Medications Acetaminophen (Tylenol) 975 mg PO ONETIME ONE Stop: 03/09/20 11:49 Last Admin: 03/09/20 12:36 Dose: 975 mg Documented by: Furosemide (Lasix) 40 mg IVPUSH NOW ONE Stop: 03/09/20 10:37 Last Admin: 03/09/20 11:13 Dose: 40 mg Documented by: Dextrose/Sodium Chloride (Dextrose 5%-Normal Saline) 1,000 mls @ 75 mls/hr IV ASDIRECTED [facility] Last Infusion: 03/09/20 14:45 Dose: Infused Documented by: Ceftriaxone Sodium 2 gm/ (Sodium Chloride) 100 mls @ 200 mls/hr IV ONETIME ONE Stop: 03/09/20 12:21 Last Admin: 03/09/20 12:35 Dose: 200 mls/hr Documented by: Lactated Ringer's (Ringers, Lactated) 1,000 mls @ 999 mls/hr IV .BOLUS ONE Stop: 03/09/20 16:16 Last Admin: 03/09/20 15:30 Dose: 999 mls/hr Documented by: Lactated Ringer's (Ringers, Lactated) 500 mls @ 999 mls/hr IV .BOLUS ONE Stop: 03/09/20 17:22 Last Admin: 03/09/20 17:13 Dose: 500 mls/hr Documented by: Magnesium Sulfate (Magnesium Sulfate In Water 2 Gm/50 Ml) 2 gm in 50 mls @ 25 mls/hr IV Q1H [facility] Lactated Ringer's (Ringers, Lactated) Confirm Administered Dose 1,000 mls @ as directed .ROUTE .STK-MED ONE Stop: 03/09/20 17:02 Last Admin: 03/09/20 17:33 Dose: Not Given Documented by: Magnesium Sulfate (Magnesium Sulfate In Water 2 Gm/50 Ml) 2 gm in 50 mls @ 25 mls/hr IV ONETIME ONE Stop: 03/09/20 19:59 Last Admin: 03/09/20 19:08 Dose: 25 mls/hr Documented by: Sodium Chloride (Normal Saline) 1,000 mls @ 75 mls/hr IV ASDIRECTED [facility] Last Admin: 03/09/20 19:09 Dose: 75 mls/hr Documented by: Iopamidol (Isovue-300 (61%)) 100 ml IVPUSH ONETIME ONE Stop: 03/09/20 11:56 Last Admin: 03/09/20 12:18 Dose: 100 ml Documented by: Iopamidol (Isovue-300 (61%)) 25 ml IVPUSH ONETIME ONE Stop: 03/09/20 11:56 Last Admin: 03/09/20 12:18 Dose: 25 ml Documented by: Sodium Chloride (Saline Flush) 10 ml FLUSH ONETIME PRN PRN Reason: Keep Vein Open Last Admin: 03/09/20 12:19 Dose: 10 ml Documented by: Warfarin Sodium (Coumadin) 2.5 mg PO ONETIME ONE Stop: 03/09/20 18:01 Warfarin Sodium (Coumadin) 2.5 mg PO ONETIME ONE Stop: 03/09/20 21:01 Last Admin: 03/09/20 20:13 Dose: 2.5 mg Documented by: - Exam Quality Assessment: No: Supplemental Oxygen General: Alert, Oriented HEENT: Pupils Equal, Mucous Membr. Moist/[place] Neck: Supple Lungs: Normal Respiratory Effort, Wheezing Cardiovascular: Regular Rate, Regular Rhythm GI/Abdominal Exam: Normal Bowel Sounds, Soft, Non-Tender, No Organomegaly, No Distention, No Abnormal Bruit, No Mass Extremities: Normal Inspection, Normal Range of Motion, Non-Tender, No Pedal Ed boaz, Normal Capillary Refill Peripheral Pulses: 1+: Posterior Tibial (L), Posterior Tibial (R), Dorsalis Pedis (L), Dorsalis Pedis (R) Skin: Warm, Dry, Intact Psy/Mental Status: Alert, Normal Affect, Normal Mood Sepsis Event Note - Evaluation Sepsis Screening Result: Severe Sepsis Risk - Focused Exam Vital Signs: Vital Signs Temp Pulse Pulse Resp BP BP Pulse Ox 03/10/20 08:05 65 103/82 03/10/20 08:00 97.3 F 64 18 103/82 91 L 03/10/20 06:02 124/83 95 03/10/20 06:01 95 03/10/20 06:00 94 L 03/10/20 05:01 91 L 03/10/20 05:00 103/65 92 L 03/10/20 04:59 93 L 03/10/20 04:01 54 L 99/64 94 L 03/10/20 04:00 96.5 F L 48 L 20 94 L 03/10/20 03:02 47 L 97 03/10/20 03:01 51 L 112/59 L 95 03/10/20 02:59 54 L 93 L 03/10/20 02:01 56 L 111/72 93 L 03/10/20 02:00 58 L 96 03/10/20 01:01 59 L 94/62 94 L 03/10/20 01:00 63 85 L 03/10/20 00:01 59 L 96/64 93 L 03/10/20 00:00 96.8 F L 60 54 L 20 94 L 03/09/20 23:01 61 104/56 L 93 L 03/09/20 23:00 57 L 94 L 03/09/20 22:52 50 L 96 - Problem List & Annotations (1) Severe sepsis SNOMED Code(s): 63112716 Code(s): A41.9 - SEPSIS, UNSPECIFIED ORGANISM; R65.20 - SEVERE SEPSIS WITHOUT SEPTIC SHOCK Status: Acute Current Visit: Yes (2) Bilateral pneumonia SNOMED Code(s): 461584509 Code(s): J18.9 - PNEUMONIA, UNSPECIFIED ORGANISM Status: Acute Current Visit: Yes Qualifiers: Pneumonia type: due to unspecified organism Lung location: unspecified part of lung Qualified Code(s): J18.9 - Pneumonia, unspecified organism - Problem List Review Problem List Initiated/Reviewed/Updated: Yes - My Orders Last 24 Hours: My Active Orders 03/09/20 14:38 Patient Status [ADT] Routine 03/09/20 15:15 Intake and Output Strict [RC] 04,16 RT Chest Physiotherapy [RC] ASDIRECTED RT Incentive Spirometry [RC] ASDIRECTED 03/09/20 15:30 Pharmacy to Dose - Warfarin 1 dose .XX ASDIRECTED PRN 03/09/20 15:35 Up With Assistance [RC] ASDIRECTED VTE/DVT Education [RC] Vital Signs [RC] Q4HR PT Evaluation and Treatment [CONS] Routine Acetaminophen [TylenoL] 650 mg PO Q4H PRN Albuterol [Proventil Neb Soln] 2.5 mg NEB Q2H PRN Albuterol/Ipratropium [DuoNeb 3.0-0.5 MG/3 ML] 3 ml NEB Q4H PRN Docusate Sodium/Sennosides [Senna Plus] 1 tab PO BID PRN Ondansetron [Zofran] 4 mg IV Q4H PRN bisacodyL [Dulcolax] 5 mg PO DAILY PRN oxyCODONE 5 mg PO Q4H PRN polyethylene glycoL 3350 [MiraLAX] 17 gm PO DAILY PRN Resuscitation Status Routine 03/09/20 15:38 RT Aerosol Therapy [RC] ASDIRECTED 03/09/20 16:00 Azithromycin [Zithromax] 500 mg Sodium Chloride 0.9% [Normal Saline (AdvBag)] 250 ml IV Q24H 03/09/20 Dinner Regular Diet [DIET] 03/09/20 17:27 CULTURE SPUTUM + SMEAR [RM] Routine STREP PNEUMONIAE ANTIGEN [MREF] Routine 03/09/20 19:30 methylPREDNISolone Sod Succ [Solu-MEDROL] 60 mg IVPUSH Q8H 03/09/20 21:20 CPAP Adult [RT BiPAP/CPAP] [RC] ASDIRECTED 03/10/20 09:00 Metoprolol Succinate [Toprol XL] 25 mg PO DAILY 03/10/20 09:03 Enema [RC] .PRN 03/10/20 12:00 cefTRIAXone [Rocephin] 2 gm Sodium Chloride 0.9% [Normal Saline] 100 ml IV Q24H 03/10/20 18:00 Warfarin [Coumadin] 2 mg PO QPM 03/11/20 05:11 INR,PT,PROTHROMBIN TIME [COAG] AM 03/11/20 06:45 COMPREHENSIVE METABOLIC PN,CMP [CHEM] AM 03/12/20 05:11 INR,PT,PROTHROMBIN TIME [COAG] AM 03/13/20 05:11 INR,PT,PROTHROMBIN TIME [COAG] AM 03/14/20 05:11 INR,PT,PROTHROMBIN TIME [COAG] AM - Plan Plan:: Assessment 85-year-old male with no prior respiratory history presented to the emergency department with weakness, fever, and cough. Patient is found to be febrile with hypoxemia and bilateral pneumonia on CT scan. Severe sepsis Pneumonia Mild bilateral pleural effusions Respiratory alkalosis from tachypnea * Patient presented with temperature of 40 C, 104 F, with hypoxemia and shortness of breath. * Patient with significant white count of 13.6 With 88% neutrophils in 0 bands * CRP 13.6 * Lactic acid 1.5 * He is requiring 3 L to keep SPO2 in the mid 90s * ABG: pH 7.46, PCO2 of 32.3, PaO2 57.0, saturations 94% on 3 L via nasal cannula. * Covid screen negative * Given Rocephin 2 g in the emergency department * Blood cultures x2 in the ER * Blood pressures Dropped to 74/45 then after 50 mL of D5 NS fluid bolus improved to 86/48. * Patient was given Lasix 40 mg IV in the emergency department prior to his hypotension. * Although patient said he had no history of lung disease it appears that Proventil HFA and Breo Ellipta is on his home medication list. * Patient does have a history of sleep apnea and wears CPAP at night Atrial fibrillation with rate control Elevated BNP * EKG showed A. fib with rate at 113. Diffuse ST-T wave changes in lead V3 to lead V6 * Rate at admission in the 60s. 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 Constipated * He will likely need medical management. Plan * Admit to ICU * 1000 mL LR bolus and recheck blood pressure * Continue Rocephin 2 g every 24 hours * Add azithromycin 5 mg daily x3 days * FiO2 to keep SPO2 greater than 91% * Check urine for pneumococcal antigen * Sputum culture * Follow blood cultures * Incentive spirometer and Acapella * Physical therapy * Hold metoprolol for now until blood pressure is better controlled * Pharmacy to dose warfarin. Likely INR will increase over the next couple of days secondary to antibiotics. * Continue aspirin * Pepcid for GI prophylaxis * Patient will need a repeat PSA as an outpatient * Recheck CBC, CMP, and CRP in the morning * VTE prophylaxis with Coumadin * CODE STATUS: Full code 03/10/2020 Patient has had a significant improvement overnight. His blood pressure is well controlled and although his white count and CRP have increased this is likely a lagging indicator of improvement. Patient is now off oxygen and blood pressures have returned to normal even after getting this morning metoprolol. Sepsisresolved Pneumoniaimproved Likely COPD * Sputum Gram staingram-positive cocci * Blood cultures negative * White count increased at 18 and CRP to 24 * Continue Rocephin and azithromycin * Recheck labs in the morning * Patient is on Breo for his home medications and will be restarted. * Continue Solu-Medrolalso likely to contribute to the increased white count Atrial fibrillation with rate control Warfarin for anticoagulation Elevated BNP * Rate controlled * Lungs without rales but are wheezy * INR 2.6, up from 2.1 yesterdaypharmacy to dose Elevated PSA BPH * Will need recheck PSA as outpatient Elevated liver enzymes * And signs are much improved. AST, ALT are normal. Alk phos is slightly elevated. Albumin did decrease to 2.7. Bilirubin returned to normal Constipated * Given MiraLAX and Dulcolax * Had a bowel movement yesterday * Continue to follow Patient will likely be here for another 1 to 2 days.
[2020-03-10] MEDS ORDERED: Nitroglycerin 0.4 MG Tab.SL SL PRN (10:32)
[2020-03-10] MEDS: cefTRIAXone 2 GM in Sodium Chloride 0.9% 100 ML IV SCH (11:02)
[2020-03-10] MEDS: Famotidine 20 MG Tab PO SCH ×2 (12:02→20:05)
[2020-03-10] MEDS: Azithromycin 500 MG in Sodium Chloride 0.9% 250 ML IV SCH (16:06)
[2020-03-10] MEDS: Formoterol/Mometasone 200-5 MCG 8.8 GM Inhaler IH SCH (20:01)
[2020-03-10] MEDS: Albuterol 6.7 GM Inhaler INH SCH (20:02)
[2020-03-10] MEDS: Brimonidine 0.2% Ophth Soln 5 ML Bottle EYEBOTH SCH (20:05)
[2020-03-10] MEDS: Simvastatin 20 MG Tab PO SCH (20:05)
[2020-03-11] MEDS: methylPREDNISolone Sodium Succinate 40 MG/1 ML SDV IVPUSH SCH (03:01)
[2020-03-11] MEDS: Formoterol/Mometasone 200-5 MCG 8.8 GM Inhaler IH SCH ×2 (08:18→20:10)
[2020-03-11] MEDS: Albuterol 6.7 GM Inhaler INH SCH ×2 (08:18→20:09)
[2020-03-11] MEDS: Loratadine 10 MG Tab PO SCH (09:00)
[2020-03-11] MEDS: Metoprolol Succinate 25 MG Tab.ER PO SCH (09:00)
[2020-03-11] MEDS: Aspirin 81 MG Tab.EC PO SCH (09:00)
[2020-03-11] MEDS: Famotidine 20 MG Tab PO SCH ×2 (09:00→21:10)
[2020-03-11] MEDS: Acetaminophen 325 MG Tab PO SCH (09:01)
[2020-03-11] MEDS: Brimonidine 0.2% Ophth Soln 5 ML Bottle EYEBOTH SCH ×2 (09:05→21:11)
--- NOTE | 2020-03-11 12:04 | PCM.PN ---
- General Info Date of Service: 03/11/20 Admission Dx/Problem (Free Text): Admission Diagnosis/Problem Admission Diagnosis/Problem Pneumonia Subjective Update: Patient continues to improve. He has had increase in energy over the last 24 hours, this is likely secondary to steroids. Patient denies any fever or chills. He is still coughing up discolored sputum. Pneumococcal urine antigen negative. Functional Status: Reports: Pain Controlled - Review of Systems General: Reports: No Symptoms HEENT: Reports: No Symptoms Pulmonary: Reports: Cough, Sputum Cardiovascular: Reports: No Symptoms Gastrointestinal: Reports: No Symptoms Musculoskeletal: Reports: No Symptoms Neurological: Reports: No Symptoms Psychiatric: Reports: No Symptoms - Patient Data Vitals - Most Recent: Last Vital Signs Temp 96.3 F L 03/11/20 09:00 Pulse 89 03/11/20 09:00 Resp 18 03/11/20 09:00 BP 104/52 L 03/11/20 09:00 Pulse Ox 91 L 03/11/20 11:09 Weight - Most Recent: 174 lb 7.052 oz I&O - Last 24 Hours: Intake & Output 03/10/20 03/11/20 03/11/20 22:59 06:59 14:59 Intake Total 1310 520 Balance 1310 520 Lab Results Last 24 Hours: Laboratory Results - last 24 hr 03/11/20 03/11/20 03/11/20 Range/Units 04:31 04:31 04:31 WBC 20.46 H (4.23-9.07) K/mm3 RBC 4.08 L (4.63-6.08) M/mm3 Hgb 12.7 L (13.7-17.5) gm/dl Hct 38.8 L (40.1-51.0) % MCV 95.1 H (79.0-92.2) fl MCH 31.1 (25.7-32.2) pg MCHC 32.7 (32.2-35.5) g/dl RDW Std Deviation 49.6 H (35.1-43.9) fL Plt Count 272 (163-337) K/mm3 MPV 10.0 (9.4-12.3) fl Neut % (Auto) 86.6 H (34.0-67.9) % Lymph % (Auto) 8.8 L (21.8-53.1) % [place] % (Auto) 4.3 L (5.3-12.2) % Eos % (Auto) 0 L (0.8-7.0) Baso % (Auto) 0.0 L (0.1-1.2) % Neut # (Auto) 17.68 H (1.78-5.38) K/mm3 Lymph # (Auto) 1.81 (1.32-3.57) K/mm3 [place] # (Auto) 0.89 H (0.30-0.82) K/mm3 Eos # (Auto) 0.00 L (0.04-0.54) K/mm3 Baso # (Auto) 0.01 (0.01-0.08) K/mm3 Manual Slide Review Abnormal smear PT 42.6 H D (9.7-12.0) SECONDS INR 4.09 Sodium 142 (136-145) mEq/L Potassium 3.6 (3.5-5.1) mEq/L Chloride 104 (98-107) mEq/L Carbon Dioxide 25 (21-32) mEq/L Anion Gap 16.6 H (5-15) BUN 19 H (7-18) mg/dL Creatinine 0.8 (0.7-1.3) mg/dL Est Cr Clr Drug Dosing 67.51 mL/min Estimated GFR (MDRD) > 60 (>60) mL/min BUN/Creatinine Ratio 23.8 H (14-18) Glucose 170 H (83-115) mg/dL Calcium 8.7 (8.5-10.1) mg/dL Magnesium (1.8-2.4) mg/dl Total Bilirubin 0.5 (0.2-1.0) mg/dL AST 27 (15-37) U/L ALT 46 (16-63) U/L Alkaline Phosphatase 131 H (46-116) U/L C-Reactive Protein (<1.0) mg/dL Total Protein 6.7 (6.4-8.2) g/dl Albumin 2.7 L (3.4-5.0) g/dl Globulin 4.0 gm/dL Albumin/Globulin Ratio 0.7 L (1-2) 03/11/20 Range/Units 04:31 WBC (4.23-9.07) K/mm3 RBC (4.63-6.08) M/mm3 Hgb (13.7-17.5) gm/dl Hct (40.1-51.0) % MCV (79.0-92.2) fl MCH (25.7-32.2) pg MCHC (32.2-35.5) g/dl RDW Std Deviation (35.1-43.9) fL Plt Count (163-337) K/mm3 MPV (9.4-12.3) fl Neut % (Auto) (34.0-67.9) % Lymph % (Auto) (21.8-53.1) % [place] % (Auto) (5.3-12.2) % Eos % (Auto) (0.8-7.0) Baso % (Auto) (0.1-1.2) % Neut # (Auto) (1.78-5.38) K/mm3 Lymph # (Auto) (1.32-3.57) K/mm3 [place] # (Auto) (0.30-0.82) K/mm3 Eos # (Auto) (0.04-0.54) K/mm3 Baso # (Auto) (0.01-0.08) K/mm3 Manual Slide Review PT (9.7-12.0) SECONDS INR Sodium (136-145) mEq/L Potassium (3.5-5.1) mEq/L Chloride (98-107) mEq/L Carbon Dioxide (21-32) mEq/L Anion Gap (5-15) BUN (7-18) mg/dL Creatinine (0.7-1.3) mg/dL Est Cr Clr Drug Dosing mL/min Estimated GFR (MDRD) (>60) mL/min BUN/Creatinine Ratio (14-18) Glucose (83-115) mg/dL Calcium (8.5-10.1) mg/dL Magnesium 2.2 (1.8-2.4) mg/dl Total Bilirubin (0.2-1.0) mg/dL AST (15-37) U/L ALT (16-63) U/L Alkaline Phosphatase (46-116) U/L C-Reactive Protein 15.3 H* (<1.0) mg/dL Total Protein (6.4-8.2) g/dl Albumin (3.4-5.0) g/dl Globulin gm/dL Albumin/Globulin Ratio (1-2) Vicente Results Last 24 Hours: Microbiology 03/09/20 10:35 Aerobic Blood Culture - Preliminary Blood - Venous - Lab Draw NO GROWTH AFTER 2 DAYS Anaerobic Blood Culture - Preliminary NO GROWTH AFTER 2 DAYS 03/09/20 10:28 Aerobic Blood Culture - Preliminary Blood - Venous NO GROWTH AFTER 2 DAYS Anaerobic Blood Culture - Preliminary NO GROWTH AFTER 2 DAYS 03/09/20 17:27 Gram Stain - Final Sputum - Expectorated Sputum Culture - Preliminary 03/09/20 17:27 Streptococcus pneumoniae Antigen (M - Final Urine Med Orders - Current: Current Medications Acetaminophen (Tylenol) 650 mg PO Q4H PRN PRN Reason: Pain (Mild 1-3)/fever Last Admin: 03/10/20 20:06 Dose: 650 mg Documented by: Acetaminophen (Tylenol) 650 mg PO DAILY [facility] Last Admin: 03/11/20 09:01 Dose: 650 mg Documented by: Albuterol (Proventil Neb Soln) 2.5 mg NEB Q2H PRN PRN Reason: Shortness Of Breath/wheezing Albuterol (Proventil Hfa) 0 gm INH Q12H [facility] Last Admin: 03/11/20 08:18 Dose: 2 inhalation Documented by: Albuterol/Ipratropium (Duoneb 3.0-0.5 Mg/3 Ml) 3 ml NEB Q4H PRN PRN Reason: Shortness Of Breath/wheezing Last Admin: 03/09/20 20:58 Dose: 3 ml Documented by: Aspirin (Halfprin) 81 mg PO DAILY [facility] Last Admin: 03/11/20 09:00 Dose: 81 mg Documented by: Bisacodyl (Dulcolax) 5 mg PO DAILY PRN PRN Reason: Constipation Last Admin: 03/10/20 09:10 Dose: 5 mg Documented by: Brimonidine Tartrate (Alphagan 0.2% Ophth Soln) 0 ml EYEBOTH BID [facility] Last Admin: 03/11/20 09:05 Dose: 1 drop Documented by: Famotidine (Pepcid) 20 mg PO BID [facility] Last Admin: 03/11/20 09:00 Dose: 20 mg Documented by: Azithromycin 500 mg/ Sodium (Chloride) 250 mls @ 250 mls/hr IV Q24H [facility] Stop: 03/11/20 16:59 Last Admin: 03/10/20 16:06 Dose: 250 mls/hr Documented by: Ceftriaxone Sodium 2 gm/ (Sodium Chloride) 100 mls @ 200 mls/hr IV Q24H [facility] Last Admin: 03/10/20 11:02 Dose: 200 mls/hr Documented by: Loratadine (Claritin) 10 mg PO DAILY [facility] Last Admin: 03/11/20 09:00 Dose: 10 mg Documented by: Metoprolol Succinate (Toprol Xl) 25 mg PO DAILY [facility] Last Admin: 03/11/20 09:00 Dose: 25 mg Documented by: Mometasone Furoate/Formoterol Fumar (Dulera 200-5 Mcg) 2 puff IH BID [facility] Last Admin: 03/11/20 08:18 Dose: 2 inhalation Documented by: Nitroglycerin (Nitrostat) 0.4 mg SL ASDIRECTED PRN PRN Reason: Chest Pain Ondansetron HCl (Zofran) 4 mg IV Q4H PRN PRN Reason: Nausea/Vomiting Oxycodone HCl (Oxycodone) 5 mg PO Q4H PRN PRN Reason: Pain (moderate 4-6) Polyethylene Glycol (Miralax) 17 gm PO DAILY PRN PRN Reason: Constipation Last Admin: 03/10/20 08:05 Dose: 17 gm Documented by: Prednisone (Prednisone) 40 mg PO DAILY [facility] Senna/Docusate Sodium (Senna Plus) 1 tab PO BID PRN PRN Reason: Constipation Simvastatin (Zocor) 40 mg PO BEDTIME [facility] Last Admin: 03/10/20 20:05 Dose: 40 mg Documented by: Warfarin Sodium (Pharmacy To Dose - Warfarin) 1 dose .XX ASDIRECTED PRN PRN Reason: RX TO DOSE WARFARIN Warfarin Sodium (Coumadin Sliding Scale) 0 each PO QPM [facility] Stop: 03/11/20 18:01 Discontinued Medications Acetaminophen (Tylenol) 975 mg PO ONETIME ONE Stop: 03/09/20 11:49 Last Admin: 03/09/20 12:36 Dose: 975 mg Documented by: Furosemide (Lasix) 40 mg IVPUSH NOW ONE Stop: 03/09/20 10:37 Last Admin: 03/09/20 11:13 Dose: 40 mg Documented by: Dextrose/Sodium Chloride (Dextrose 5%-Normal Saline) 1,000 mls @ 75 mls/hr IV ASDIRECTED EDI Last Infusion: 03/09/20 14:45 Dose: Infused Documented by: Ceftriaxone Sodium 2 gm/ (Sodium Chloride) 100 mls @ 200 mls/hr IV ONETIME ONE Stop: 03/09/20 12:21 Last Admin: 03/09/20 12:35 Dose: 200 mls/hr Documented by: Lactated Ringer's (Ringers, Lactated) 1,000 mls @ 999 mls/hr IV .BOLUS ONE Stop: 03/09/20 16:16 Last Admin: 03/09/20 15:30 Dose: 999 mls/hr Documented by: Lactated Ringer's (Ringers, Lactated) 500 mls @ 999 mls/hr IV .BOLUS ONE Stop: 03/09/20 17:22 Last Admin: 03/09/20 17:13 Dose: 500 mls/hr Documented by: Magnesium Sulfate (Magnesium Sulfate In Water 2 Gm/50 Ml) 2 gm in 50 mls @ 25 mls/hr IV Q1H [facility] Lactated Ringer's (Ringers, Lactated) Confirm Administered Dose 1,000 mls @ as directed .ROUTE .STK-MED ONE Stop: 03/09/20 17:02 Last Admin: 03/09/20 17:33 Dose: Not Given Documented by: Magnesium Sulfate (Magnesium Sulfate In Water 2 Gm/50 Ml) 2 gm in 50 mls @ 25 mls/hr IV ONETIME ONE Stop: 03/09/20 19:59 Last Admin: 03/09/20 19:08 Dose: 25 mls/hr Documented by: Sodium Chloride (Normal Saline) 1,000 mls @ 75 mls/hr IV ASDIRECTED [facility] Last Admin: 03/09/20 19:09 Dose: 75 mls/hr Documented by: Iopamidol (Isovue-300 (61%)) 100 ml IVPUSH ONETIME ONE Stop: 03/09/20 11:56 Last Admin: 03/09/20 12:18 Dose: 100 ml Documented by: Iopamidol (Isovue-300 (61%)) 25 ml IVPUSH ONETIME ONE Stop: 03/09/20 11:56 Last Admin: 03/09/20 12:18 Dose: 25 ml Documented by: Methylprednisolone Sodium Succinate (Solu-Medrol) 60 mg IVPUSH Q8H [facility] Last Admin: 03/11/20 03:01 Dose: 60 mg Documented by: Sodium Chloride (Saline Flush) 10 ml FLUSH ONETIME PRN PRN Reason: Keep Vein Open Last Admin: 03/09/20 12:19 Dose: 10 ml Documented by: Warfarin Sodium (Coumadin) 2.5 mg PO ONETIME ONE Stop: 03/09/20 18:01 Warfarin Sodium (Coumadin) 2.5 mg PO ONETIME ONE Stop: 03/09/20 21:01 Last Admin: 03/09/20 20:13 Dose: 2.5 mg Documented by: Warfarin Sodium (Coumadin) 2 mg PO QPM [facility] Stop: 03/10/20 18:01 Last Admin: 03/10/20 18:19 Dose: 2 mg Documented by: - Exam Quality Assessment: No: Supplemental Oxygen General: Alert, Oriented HEENT: Pupils Equal, Mucous Membr. Moist/[place] Neck: Supple Lungs: Normal Respiratory Effort, Rales Cardiovascular: Regular Rate, Regular Rhythm GI/Abdominal Exam: Normal Bowel Sounds, Soft, Non-Tender, No Organomegaly, No Distention, No Abnormal Bruit Extremities: Normal Inspection, No Pedal Edema, Normal Capillary Refill Skin: Warm, Dry, Intact Psy/Mental Status: Alert, Normal Affect, Normal Mood Sepsis Event Note - Evaluation Sepsis Screening Result: No Definite Risk - Focused Exam Vital Signs: Vital Signs Temp Pulse Resp BP BP BP Pulse Ox 03/11/20 11:09 91 L 03/11/20 09:00 96.3 F L 89 18 104/56 L 104/52 L 96 03/11/20 08:57 93 L 03/11/20 08:18 03/11/20 08:11 91 L 03/11/20 07:32 94 L 03/11/20 03:07 97.6 F 20 123/64 95 Pulse Ox 03/11/20 11:09 03/11/20 09:00 03/11/20 08:57 03/11/20 08:18 94 L 03/11/20 08:11 03/11/20 07:32 03/11/20 03:07 - Problem List & Annotations (1) Severe sepsis SNOMED Code(s): 07523696 Code(s): A41.9 - SEPSIS, UNSPECIFIED ORGANISM; R65.20 - SEVERE SEPSIS WITHOUT SEPTIC SHOCK Status: Acute Current Visit: Yes (2) Bilateral pneumonia SNOMED Code(s): 858148513 Code(s): J18.9 - PNEUMONIA, UNSPECIFIED ORGANISM Status: Acute Current Visit: Yes Qualifiers: Pneumonia type: due to unspecified organism Lung location: unspecified part of lung Qualified Code(s): J18.9 - Pneumonia, unspecified organism - Problem List Review Problem List Initiated/Reviewed/Updated: Yes - My Orders Last 24 Hours: My Active Orders 03/10/20 11:15 Famotidine [Pepcid] 20 mg PO BID 03/10/20 12:00 cefTRIAXone [Rocephin] 2 gm Sodium Chloride 0.9% [Normal Saline] 100 ml IV Q24H 03/10/20 15:18 Patient Status [ADT] Routine Cardiac Monitoring [RC] . DIRECTED 03/10/20 21:00 Albuterol [Proventil HFA] 0 gm INH Q12H Brimonidine [Alphagan 0.2% Ophth Soln] 0 ml EYEBOTH BID Mometasone/Formoterol [Dulera 200-5 MCG] 2 puff IH BID Simvastatin [Zocor] 40 mg PO BEDTIME 03/11/20 09:00 Acetaminophen [TylenoL] 650 mg PO DAILY Aspirin [Halfprin] 81 mg PO DAILY Loratadine [Claritin] 10 mg PO DAILY 03/11/20 11:00 predniSONE 40 mg PO DAILY 03/11/20 18:00 Warfarin Sliding Scale [Coumadin Sliding Scale] 0 each PO QPM 03/12/20 05:11 INR,PT,PROTHROMBIN TIME [COAG] AM 03/13/20 05:11 INR,PT,PROTHROMBIN TIME [COAG] AM 03/14/20 05:11 INR,PT,PROTHROMBIN TIME [COAG] AM - Plan Plan:: Assessment 85-year-old male with no prior respiratory history presented to the emergency department with weakness, fever, and cough. Patient is found to be febrile with hypoxemia and bilateral pneumonia on CT scan. Severe sepsis Pneumonia Mild bilateral pleural effusions Respiratory alkalosis from tachypnea * Patient presented with temperature of 40 C, 104 F, with hypoxemia and shortness of breath. * Patient with significant white count of 13.6 With 88% neutrophils in 0 bands * CRP 13.6 * Lactic acid 1.5 * He is requiring 3 L to keep SPO2 in the mid 90s * ABG: pH 7.46, PCO2 of 32.3, PaO2 57.0, saturations 94% on 3 L via nasal cannula. * Covid screen negative * Given Rocephin 2 g in the emergency department * Blood cultures x2 in the ER * Blood pressures Dropped to 74/45 then after 50 mL of D5 NS fluid bolus improved to 86/48. * Patient was given Lasix 40 mg IV in the emergency department prior to his hypotension. * Although patient said he had no history of lung disease it appears that Proventil HFA and Breo Ellipta is on his home medication list. * Patient does have a history of sleep apnea and wears CPAP at night Atrial fibrillation with rate control Elevated BNP * EKG showed A. fib with rate at 113. Diffuse ST-T wave changes in lead V3 to lead V6 * Rate at admission in the 60s. 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 Constipated * He will likely need medical management. Plan * Admit to ICU * 1000 mL LR bolus and recheck blood pressure * Continue Rocephin 2 g every 24 hours * Add azithromycin 5 mg daily x3 days * FiO2 to keep SPO2 greater than 91% * Check urine for pneumococcal antigen * Sputum culture * Follow blood cultures * Incentive spirometer and Acapella * Physical therapy * Hold metoprolol for now until blood pressure is better controlled * Pharmacy to dose warfarin. Likely INR will increase over the next couple of days secondary to antibiotics. * Continue aspirin * Pepcid for GI prophylaxis * Patient will need a repeat PSA as an outpatient * Recheck CBC, CMP, and CRP in the morning * VTE prophylaxis with Coumadin * CODE STATUS: Full code 03/10/2020 Patient has had a significant improvement overnight. His blood pressure is well controlled and although his white count and CRP have increased this is likely a lagging indicator of improvement. Patient is now off oxygen and blood pressures have returned to normal even after getting this morning metoprolol. Sepsisresolved Pneumoniaimproved Likely COPD * Sputum Gram staingram-positive cocci * Blood cultures negative * White count increased at 18 and CRP to 24 * Continue Rocephin and azithromycin * Recheck labs in the morning * Patient is on Breo for his home medications and will be restarted. * Continue Solu-Medrolalso likely to contribute to the increased white count Atrial fibrillation with rate control Warfarin for anticoagulation Elevated BNP * Rate controlled * Lungs without rales but are wheezy * INR 2.6, up from 2.1 yesterdaypharmacy to dose Elevated PSA BPH * Will need recheck PSA as outpatient Elevated liver enzymes * And signs are much improved. AST, ALT are normal. Alk phos is slightly elevated. Albumin did decrease to 2.7. Bilirubin returned to normal Constipated * Given MiraLAX and Dulcolax * Had a bowel movement yesterday * Continue to follow Patient will likely be here for another 1 to 2 days. 03/11/2020 Patient continues to improve. His white count did increase to 20,000 but his C- reactive protein has decreased. The increase in white count is likely demargination from the steroids. INR has increased expectedly to 4.0. Although other are some rales in the bases he has had a significant improvement and he is off oxygen. Liver function has returned to normal with alkaline phosphatase the only enzyme mildly elevated at 131. Albumin is low, but stable at 2.7. Total bilirubin normal at 0.5. DC Solu-Medrol and start prednisone 40 mg daily. Recheck labs in the morning. Follow results of sputum culture and blood cultures. Urine pneumococcal antigen negative. If patient continues to improve he will be discharged tomorrow.
[2020-03-11] MEDS: predniSONE 20 MG Tab PO SCH (12:21)
[2020-03-11] MEDS: cefTRIAXone 2 GM in Sodium Chloride 0.9% 100 ML IV SCH (12:21)
[2020-03-11] MEDS: Azithromycin 500 MG in Sodium Chloride 0.9% 250 ML IV SCH (17:51)
[2020-03-11] MEDS ORDERED: Warfarin Sliding Scale PO SCH (18:00)
[2020-03-11] MEDS: Simvastatin 20 MG Tab PO SCH (21:10)
[2020-03-12] MEDS: Albuterol 6.7 GM Inhaler INH SCH ×2 (08:37→20:23)
[2020-03-12] MEDS: Formoterol/Mometasone 200-5 MCG 8.8 GM Inhaler IH SCH ×2 (08:37→20:24)
[2020-03-12] MEDS: Famotidine 20 MG Tab PO SCH ×2 (08:59→20:50)
[2020-03-12] MEDS: Aspirin 81 MG Tab.EC PO SCH (08:59)
[2020-03-12] MEDS: Brimonidine 0.2% Ophth Soln 5 ML Bottle EYEBOTH SCH ×2 (09:00→20:51)
[2020-03-12] MEDS: Acetaminophen 325 MG Tab PO SCH (09:00)
[2020-03-12] MEDS: Loratadine 10 MG Tab PO SCH (09:00)
[2020-03-12] MEDS: Metoprolol Succinate 25 MG Tab.ER PO SCH (09:01)
[2020-03-12] MEDS: predniSONE 20 MG Tab PO SCH (09:02)
[2020-03-12] MEDS: cefTRIAXone 2 GM in Sodium Chloride 0.9% 100 ML IV SCH (12:55)
--- NOTE | 2020-03-12 14:53 | PCM.PN ---
- General Info Date of Service: 03/12/20 Admission Dx/Problem (Free Text): Admission Diagnosis/Problem Admission Diagnosis/Problem Pneumonia Subjective Update: Bart states that he is feeling well. Unfortunately his INR increased to 6.0. He is not having active bleeding but he is coughing up some blood tinged sputum. Warfarin was held yesterday. No other bleeding. Appetite is good. Functional Status: Reports: Pain Controlled - Review of Systems General: Reports: No Symptoms HEENT: Reports: No Symptoms Pulmonary: Reports: No Symptoms Cardiovascular: Reports: No Symptoms Gastrointestinal: Reports: No Symptoms Musculoskeletal: Reports: No Symptoms Neurological: Reports: No Symptoms Psychiatric: Reports: No Symptoms - Patient Data Vitals - Most Recent: Last Vital Signs Temp 97.0 F 03/12/20 08:49 Pulse 54 L 03/12/20 09:01 Resp 14 03/12/20 08:49 BP 121/63 03/12/20 09:01 Pulse Ox 98 03/12/20 08:49 Weight - Most Recent: 175 lb 8 oz I&O - Last 24 Hours: Intake & Output 03/11/20 03/12/20 03/12/20 22:59 06:59 14:59 Intake Total 1070 800 Balance 1070 800 Lab Results Last 24 Hours: Laboratory Results - last 24 hr 03/12/20 Range/Units 05:55 PT 62.6 H* D (9.7-12.0) SECONDS INR 6.06 H* Vicente Results Last 24 Hours: Microbiology 03/09/20 10:35 Aerobic Blood Culture - Preliminary Blood - Venous - Lab Draw NO GROWTH AFTER 3 DAYS Anaerobic Blood Culture - Preliminary NO GROWTH AFTER 3 DAYS 03/09/20 10:28 Aerobic Blood Culture - Preliminary Blood - Venous NO GROWTH AFTER 3 DAYS Anaerobic Blood Culture - Preliminary NO GROWTH AFTER 3 DAYS 03/09/20 17:27 Gram Stain - Final Sputum - Expectorated Sputum Culture - Final Streptococcus Pneumoniae Med Orders - Current: Current Medications Acetaminophen (Tylenol) 650 mg PO Q4H PRN PRN Reason: Pain (Mild 1-3)/fever Last Admin: 03/10/20 20:06 Dose: 650 mg Documented by: Acetaminophen (Tylenol) 650 mg PO DAILY EDI Last Admin: 03/12/20 09:00 Dose: 650 mg Documented by: Albuterol (Proventil Neb Soln) 2.5 mg NEB Q2H PRN PRN Reason: Shortness Of Breath/wheezing Albuterol (Proventil Hfa) 0 gm INH Q12H [facility] Last Admin: 03/12/20 08:37 Dose: 2 inhalation Documented by: Albuterol/Ipratropium (Duoneb 3.0-0.5 Mg/3 Ml) 3 ml NEB Q4H PRN PRN Reason: Shortness Of Breath/wheezing Last Admin: 03/09/20 20:58 Dose: 3 ml Documented by: Aspirin (Halfprin) 81 mg PO DAILY [facility] Last Admin: 03/12/20 08:59 Dose: 81 mg Documented by: Bisacodyl (Dulcolax) 5 mg PO DAILY PRN PRN Reason: Constipation Last Admin: 03/10/20 09:10 Dose: 5 mg Documented by: Brimonidine Tartrate (Alphagan 0.2% Ophth Soln) 0 ml EYEBOTH BID [facility] Last Admin: 03/12/20 09:00 Dose: 1 drop Documented by: Famotidine (Pepcid) 20 mg PO BID [facility] Last Admin: 03/12/20 08:59 Dose: 20 mg Documented by: Ceftriaxone Sodium 2 gm/ (Sodium Chloride) 100 mls @ 200 mls/hr IV Q24H [facility] Last Admin: 03/12/20 12:55 Dose: 200 mls/hr Documented by: Loratadine (Claritin) 10 mg PO DAILY [facility] Last Admin: 03/12/20 09:00 Dose: 10 mg Documented by: Metoprolol Succinate (Toprol Xl) 25 mg PO DAILY [facility] Last Admin: 03/12/20 09:01 Dose: 25 mg Documented by: Mometasone Furoate/Formoterol Fumar (Dulera 200-5 Mcg) 2 puff IH BID [facility] Last Admin: 03/12/20 08:37 Dose: 2 inhalation Documented by: Nitroglycerin (Nitrostat) 0.4 mg SL ASDIRECTED PRN PRN Reason: Chest Pain Ondansetron HCl (Zofran) 4 mg IV Q4H PRN PRN Reason: Nausea/Vomiting Oxycodone HCl (Oxycodone) 5 mg PO Q4H PRN PRN Reason: Pain (moderate 4-6) Polyethylene Glycol (Miralax) 17 gm PO DAILY PRN PRN Reason: Constipation Last Admin: 03/10/20 08:05 Dose: 17 gm Documented by: Prednisone (Prednisone) 40 mg PO DAILY [facility] Last Admin: 03/12/20 09:02 Dose: 40 mg Documented by: Senna/Docusate Sodium (Senna Plus) 1 tab PO BID PRN PRN Reason: Constipation Simvastatin (Zocor) 40 mg PO BEDTIME [facility] Last Admin: 03/11/20 21:10 Dose: 40 mg Documented by: Warfarin Sodium (Pharmacy To Dose - Warfarin) 1 dose .XX ASDIRECTED PRN PRN Reason: RX TO DOSE WARFARIN Warfarin Sodium (Coumadin Sliding Scale) 0 each PO QPM [facility] Stop: 03/12/20 18:01 Discontinued Medications Acetaminophen (Tylenol) 975 mg PO ONETIME ONE Stop: 03/09/20 11:49 Last Admin: 03/09/20 12:36 Dose: 975 mg Documented by: Furosemide (Lasix) 40 mg IVPUSH NOW ONE Stop: 03/09/20 10:37 Last Admin: 03/09/20 11:13 Dose: 40 mg Documented by: Dextrose/Sodium Chloride (Dextrose 5%-Normal Saline) 1,000 mls @ 75 mls/hr IV ASDIRECTED [facility] Last Infusion: 03/09/20 14:45 Dose: Infused Documented by: Ceftriaxone Sodium 2 gm/ (Sodium Chloride) 100 mls @ 200 mls/hr IV ONETIME ONE Stop: 03/09/20 12:21 Last Admin: 03/09/20 12:35 Dose: 200 mls/hr Documented by: Lactated Ringer's (Ringers, Lactated) 1,000 mls @ 999 mls/hr IV .BOLUS ONE Stop: 03/09/20 16:16 Last Admin: 03/09/20 15:30 Dose: 999 mls/hr Documented by: Azithromycin 500 mg/ Sodium (Chloride) 250 mls @ 250 mls/hr IV Q24H [facility] Stop: 03/11/20 16:59 Last Admin: 03/11/20 17:51 Dose: 250 mls/hr Documented by: Lactated Ringer's (Ringers, Lactated) 500 mls @ 999 mls/hr IV .BOLUS ONE Stop: 03/09/20 17:22 Last Admin: 03/09/20 17:13 Dose: 500 mls/hr Documented by: Magnesium Sulfate (Magnesium Sulfate In Water 2 Gm/50 Ml) 2 gm in 50 mls @ 25 mls/hr IV Q1H [facility] Lactated Ringer's (Ringers, Lactated) Confirm Administered Dose 1,000 mls @ as directed .ROUTE .STK-MED ONE Stop: 03/09/20 17:02 Last Admin: 03/09/20 17:33 Dose: Not Given Documented by: Magnesium Sulfate (Magnesium Sulfate In Water 2 Gm/50 Ml) 2 gm in 50 mls @ 25 mls/hr IV ONETIME ONE Stop: 03/09/20 19:59 Last Admin: 03/09/20 19:08 Dose: 25 mls/hr Documented by: Sodium Chloride (Normal Saline) 1,000 mls @ 75 mls/hr IV ASDIRECTED [facility] Last Admin: 03/09/20 19:09 Dose: 75 mls/hr Documented by: Iopamidol (Isovue-300 (61%)) 100 ml IVPUSH ONETIME ONE Stop: 03/09/20 11:56 Last Admin: 03/09/20 12:18 Dose: 100 ml Documented by: Iopamidol (Isovue-300 (61%)) 25 ml IVPUSH ONETIME ONE Stop: 03/09/20 11:56 Last Admin: 03/09/20 12:18 Dose: 25 ml Documented by: Methylprednisolone Sodium Succinate (Solu-Medrol) 60 mg IVPUSH Q8H [facility] Last Admin: 03/11/20 03:01 Dose: 60 mg Documented by: Sodium Chloride (Saline Flush) 10 ml FLUSH ONETIME PRN PRN Reason: Keep Vein Open Last Admin: 03/09/20 12:19 Dose: 10 ml Documented by: Warfarin Sodium (Coumadin) 2.5 mg PO ONETIME ONE Stop: 03/09/20 18:01 Warfarin Sodium (Coumadin) 2.5 mg PO ONETIME ONE Stop: 03/09/20 21:01 Last Admin: 03/09/20 20:13 Dose: 2.5 mg Documented by: Warfarin Sodium (Coumadin) 2 mg PO QPM [facility] Stop: 03/10/20 18:01 Last Admin: 03/10/20 18:19 Dose: 2 mg Documented by: Warfarin Sodium (Coumadin Sliding Scale) 0 each PO QPM [facility] Stop: 03/11/20 18:01 Last Admin: 03/11/20 17:03 Dose: Not Given Documented by: - Exam Quality Assessment: No: Supplemental Oxygen General: Alert, Oriented HEENT: Pupils Equal, Mucous Membr. Moist/[place] Neck: Supple Lungs: Clear to Auscultation, Normal Respiratory Effort Cardiovascular: Regular Rate, Regular Rhythm GI/Abdominal Exam: Normal Bowel Sounds, Soft, Non-Tender, No Organomegaly, No Distention, No Abnormal Bruit Extremities: Normal Inspection, Normal Range of Motion, No Pedal Edema, Normal Capillary Refill Psy/Mental Status: Alert, Normal Affect, Normal Mood Sepsis Event Note - Evaluation Sepsis Screening Result: No Definite Risk - Focused Exam Vital Signs: Vital Signs Temp Pulse Resp BP Pulse Ox Pulse Ox 03/12/20 09:01 54 L 121/63 03/12/20 08:49 97.0 F 54 L 14 121/63 98 03/12/20 08:38 100 03/12/20 05:43 50 L 16 112/63 96 03/12/20 04:01 97.9 F 51 L 16 106/41 L 95 - Problem List & Annotations (1) Severe sepsis SNOMED Code(s): 45513689 Code(s): A41.9 - SEPSIS, UNSPECIFIED ORGANISM; R65.20 - SEVERE SEPSIS WITHOUT SEPTIC SHOCK Status: Acute Current Visit: Yes (2) Bilateral pneumonia SNOMED Code(s): 367943032 Code(s): J18.9 - PNEUMONIA, UNSPECIFIED ORGANISM Status: Acute Current Visit: Yes Qualifiers: Pneumonia type: due to unspecified organism Lung location: unspecified part of lung Qualified Code(s): J18.9 - Pneumonia, unspecified organism - Problem List Review Problem List Initiated/Reviewed/Updated: Yes - My Orders Last 24 Hours: My Active Orders 03/12/20 18:00 Warfarin Sliding Scale [Coumadin Sliding Scale] 0 each PO QPM 03/13/20 05:11 INR,PT,PROTHROMBIN TIME [[facility]] AM 03/14/20 05:11 INR,PT,PROTHROMBIN TIME [[facility]AG] AM - Plan Plan:: Assessment 85-year-old male with no prior respiratory history presented to the emergency department with weakness, fever, and cough. Patient is found to be febrile with hypoxemia and bilateral pneumonia on CT scan. Severe sepsis Pneumonia Mild bilateral pleural effusions Respiratory alkalosis from tachypnea * Patient presented with temperature of 40 C, 104 F, with hypoxemia and shortness of breath. * Patient with significant white count of 13.6 With 88% neutrophils in 0 bands * CRP 13.6 * Lactic acid 1.5 * He is requiring 3 L to keep SPO2 in the mid 90s * ABG: pH 7.46, PCO2 of 32.3, PaO2 57.0, saturations 94% on 3 L via nasal cannula. * Covid screen negative * Given Rocephin 2 g in the emergency department * Blood cultures x2 in the ER * Blood pressures Dropped to 74/45 then after 50 mL of D5 NS fluid bolus improved to 86/48. * Patient was given Lasix 40 mg IV in the emergency department prior to his hypotension. * Although patient said he had no history of lung disease it appears that Proventil HFA and Breo Ellipta is on his home medication list. * Patient does have a history of sleep apnea and wears CPAP at night Atrial fibrillation with rate control Elevated BNP * EKG showed A. fib with rate at 113. Diffuse ST-T wave changes in lead V3 to lead V6 * Rate at admission in the 60s. 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 Constipated * He will likely need medical management. Plan * Admit to ICU * 1000 mL LR bolus and recheck blood pressure * Continue Rocephin 2 g every 24 hours * Add azithromycin 5 mg daily x3 days * FiO2 to keep SPO2 greater than 91% * Check urine for pneumococcal antigen * Sputum culture * Follow blood cultures * Incentive spirometer and Acapella * Physical therapy * Hold metoprolol for now until blood pressure is better controlled * Pharmacy to dose warfarin. Likely INR will increase over the next couple of days secondary to antibiotics. * Continue aspirin * Pepcid for GI prophylaxis * Patient will need a repeat PSA as an outpatient * Recheck CBC, CMP, and CRP in the morning * VTE prophylaxis with Coumadin * CODE STATUS: Full code 03/10/2020 Patient has had a significant improvement overnight. His blood pressure is well controlled and although his white count and CRP have increased this is likely a lagging indicator of improvement. Patient is now off oxygen and blood pressures have returned to normal even after getting this morning metoprolol. Sepsisresolved Pneumoniaimproved Likely COPD * Sputum Gram staingram-positive cocci * Blood cultures negative * White count increased at 18 and CRP to 24 * Continue Rocephin and azithromycin * Recheck labs in the morning * Patient is on Breo for his home medications and will be restarted. * Continue Solu-Medrolalso likely to contribute to the increased white count Atrial fibrillation with rate control Warfarin for anticoagulation Elevated BNP * Rate controlled * Lungs without rales but are wheezy * INR 2.6, up from 2.1 yesterdaypharmacy to dose Elevated PSA BPH * Will need recheck PSA as outpatient Elevated liver enzymes * And signs are much improved. AST, ALT are normal. Alk phos is slightly elevated. Albumin did decrease to 2.7. Bilirubin returned to normal Constipated * Given MiraLAX and Dulcolax * Had a bowel movement yesterday * Continue to follow Patient will likely be here for another 1 to 2 days. 03/11/2020 Patient continues to improve. His white count did increase to 20,000 but his C- reactive protein has decreased. The increase in white count is likely demargination from the steroids. INR has increased expectedly to 4.0. Although other are some rales in the bases he has had a significant improvement and he is off oxygen. Liver function has returned to normal with alkaline phosphatase the only enzyme mildly elevated at 131. Albumin is low, but stable at 2.7. Total bilirubin normal at 0.5. DC Solu-Medrol and start prednisone 40 mg daily. Recheck labs in the morning. Follow results of sputum culture and blood cultures. Urine pneumococcal antigen negative. If patient continues to improve he will be discharged tomorrow. March 12, 2020 Patient has continued improvement. He has been afebrile and is not short of breath. He does have a productive cough still of blood-tinged sputum. Pneumoniaimproving Sepsis resolved Likely COPD * Sputum culture positive for streptococcal pneumoniae pansensitive * Patient currently on Rocephin * Blood cultures negative * No lab work today * Switch to prednisone Atrial fibrillation anticoagulated with warfarin * INR has increased to 6. * No active bleeding so we will hold warfarin and not give vitamin K * Recheck INR in the morning Elevated PSA with history of BPH * Repeat PSA in the morning Elevated liver enzymes * Repeat enzymes in the morning Constipation * Positive bowel movement today Plan discharge tomorrow on oral antibiotics.
[2020-03-12] MEDS ORDERED: Warfarin Sliding Scale PO SCH (18:00)
[2020-03-12] MEDS: Simvastatin 20 MG Tab PO SCH (20:50)
[2020-03-13] MEDS: Brimonidine 0.2% Ophth Soln 5 ML Bottle EYEBOTH SCH (09:07)
[2020-03-13] MEDS: Acetaminophen 325 MG Tab PO SCH (09:08)
[2020-03-13] MEDS: Aspirin 81 MG Tab.EC PO SCH (09:08)
[2020-03-13] MEDS: Famotidine 20 MG Tab PO SCH (09:08)
[2020-03-13] MEDS: Metoprolol Succinate 25 MG Tab.ER PO SCH (09:08)
[2020-03-13] MEDS: predniSONE 20 MG Tab PO SCH (09:08)
[2020-03-13] MEDS: Loratadine 10 MG Tab PO SCH (09:08)
[2020-03-13] MEDS: Albuterol 6.7 GM Inhaler INH SCH (09:53)
[2020-03-13] MEDS: Formoterol/Mometasone 200-5 MCG 8.8 GM Inhaler IH SCH (09:53)
--- NOTE | 2020-03-13 10:52 | PCM.DCSUM1 ---
Discharge Summary - Hospital Course HPI Initial Comments: 85-year-old male admitted to the ICU for bilateral pneumonia presented to the emergency department with fatigue and cough. Patient was a poor historian secondary to altered mental status from sepsis so much of the history was obtained through the emergency department notes. Patient's cough was productive of a white forming material. He has not been feeling well for the last week and has been excessively sleepy. Rectal temperature on admission was 104.0. He requires 3 to 5 L of FiO2 to keep his oxygen saturations in the mid 90s. Blood pressure dropped in the emergency department to 70s systolic and he was given a 250 mL bolus of D5 NS and placed on 75 mL an hour. His blood pressure did improve to 86/48. He does have a history of atrial fibrillation and is on Coumadin for stroke prophylaxis and metoprolol for rate control. Heart rate was still as high as 125 intermittently in the emergency department. When I visited with him he was in the 60s. Of note a PSA was done in the emergency department and it was 15.9. This will need to be rechecked as an outpatient when he is not severely ill. A CT of the chest, abdomen, and pelvis has been completed. IV Contrast was used. Unofficial reading showed a combination of atelectasis and pneumonia in both lower lobes. Pleural spaces show small bilateral pleural effusions. CT of the abdomen showed a normal appearing liver, gallbladder, no ductal dilatation. Stomach and bowel reveals rectum to be distended at 5.3 cm with fecal material consistent with fecal impaction. Covid was negative. Assessment 85-year-old male with no prior respiratory history presented to the emergency department with weakness, fever, and cough. Patient is found to be febrile with hypoxemia and bilateral pneumonia on CT scan. Severe sepsis Pneumonia Mild bilateral pleural effusions Respiratory alkalosis from tachypnea * Patient presented with temperature of 40 C, 104 F, with hypoxemia and shortness of breath. * Patient with significant white count of 13.6 With 88% neutrophils in 0 bands * CRP 13.6 * Lactic acid 1.5 * He is requiring 3 L to keep SPO2 in the mid 90s * ABG: pH 7.46, PCO2 of 32.3, PaO2 57.0, saturations 94% on 3 L via nasal cannula. * Covid screen negative * Given Rocephin 2 g in the emergency department * Blood cultures x2 in the ER * Blood pressures Dropped to 74/45 then after 50 mL of D5 NS fluid bolus improved to 86/48. * Patient was given Lasix 40 mg IV in the emergency department prior to his hypotension. * Although patient said he had no history of lung disease it appears that Proventil HFA and Breo Ellipta is on his home medication list. * Patient does have a history of sleep apnea and wears CPAP at night Atrial fibrillation with rate control Elevated BNP * EKG showed A. fib with rate at 113. Diffuse ST-T wave changes in lead V3 to lead V6 * Rate at admission in the 60s. 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 Constipated * He will likely need medical management. Plan * Admit to ICU * 1000 mL LR bolus and recheck blood pressure * Continue Rocephin 2 g every 24 hours * Add azithromycin 5 mg daily x3 days * FiO2 to keep SPO2 greater than 91% * Check urine for pneumococcal antigen * Sputum culture * Follow blood cultures * Incentive spirometer and Acapella * Physical therapy * Hold metoprolol for now until blood pressure is better controlled * Pharmacy to dose warfarin. Likely INR will increase over the next couple of days secondary to antibiotics. * Continue aspirin * Pepcid for GI prophylaxis * Patient will need a repeat PSA as an outpatient * Recheck CBC, CMP, and CRP in the morning * VTE prophylaxis with Coumadin * CODE STATUS: Full code Diagnosis: Stroke: No - Discharge Data Discharge Date: 03/13/20 Discharge Disposition: Home, Self-Care 01 Condition: Good - Referral to Home Health Primary Care Physician: Eden Collier MD - Discharge Diagnosis/Problem(s) (1) Severe sepsis SNOMED Code(s): 88137707 ICD Code: A41.9 - SEPSIS, UNSPECIFIED ORGANISM; R65.20 - SEVERE SEPSIS WITHOUT SEPTIC SHOCK Status: Acute (2) Bilateral pneumonia SNOMED Code(s): 920221592 ICD Code: J18.9 - PNEUMONIA, UNSPECIFIED ORGANISM Status: Acute Qualifiers: Pneumonia type: due to unspecified organism Lung location: unspecified part of lung Qualified Code(s): J18.9 - Pneumonia, unspecified organism - Patient Summary/Data Consults: Consultations 03/09/20 15:35 PT Evaluation and Treatment [CONS] Routine Hospital Course: Assessment 85-year-old male with no prior respiratory history presented to the emergency department with weakness, fever, and cough. Patient is found to be febrile with hypoxemia and bilateral pneumonia on CT scan. Severe sepsis Pneumonia Mild bilateral pleural effusions Respiratory alkalosis from tachypnea * Patient presented with temperature of 40 C, 104 F, with hypoxemia and shortness of breath. * Patient with significant white count of 13.6 With 88% neutrophils in 0 bands * CRP 13.6 * Lactic acid 1.5 * He is requiring 3 L to keep SPO2 in the mid 90s * ABG: pH 7.46, PCO2 of 32.3, PaO2 57.0, saturations 94% on 3 L via nasal cannula. * Covid screen negative * Given Rocephin 2 g in the emergency department * Blood cultures x2 in the ER * Blood pressures Dropped to 74/45 then after 50 mL of D5 NS fluid bolus improved to 86/48. * Patient was given Lasix 40 mg IV in the emergency department prior to his hypotension. * Although patient said he had no history of lung disease it appears that Proventil HFA and Breo Ellipta is on his home medication list. * Patient does have a history of sleep apnea and wears CPAP at night Atrial fibrillation with rate control Elevated BNP * EKG showed A. fib with rate at 113. Diffuse ST-T wave changes in lead V3 to lead V6 * Rate at admission in the 60s. 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 Constipated * He will likely need medical management. Plan * Admit to ICU * 1000 mL LR bolus and recheck blood pressure * Continue Rocephin 2 g every 24 hours * Add azithromycin 5 mg daily x3 days * FiO2 to keep SPO2 greater than 91% * Check urine for pneumococcal antigen * Sputum culture * Follow blood cultures * Incentive spirometer and Acapella * Physical therapy * Hold metoprolol for now until blood pressure is better controlled * Pharmacy to dose warfarin. Likely INR will increase over the next couple of days secondary to antibiotics. * Continue aspirin * Pepcid for GI prophylaxis * Patient will need a repeat PSA as an outpatient * Recheck CBC, CMP, and CRP in the morning * VTE prophylaxis with Coumadin * CODE STATUS: Full code 03/10/2020 Patient has had a significant improvement overnight. His blood pressure is well controlled and although his white count and CRP have increased this is likely a lagging indicator of improvement. Patient is now off oxygen and blood pressures have returned to normal even after getting this morning metoprolol. Sepsisresolved Pneumoniaimproved Likely COPD * Sputum Gram staingram-positive cocci * Blood cultures negative * White count increased at 18 and CRP to 24 * Continue Rocephin and azithromycin * Recheck labs in the morning * Patient is on Breo for his home medications and will be restarted. * Continue Solu-Medrolalso likely to contribute to the increased white count Atrial fibrillation with rate control Warfarin for anticoagulation Elevated BNP * Rate controlled * Lungs without rales but are wheezy * INR 2.6, up from 2.1 yesterdaypharmacy to dose Elevated PSA BPH * Will need recheck PSA as outpatient Elevated liver enzymes * And signs are much improved. AST, ALT are normal. Alk phos is slightly elevated. Albumin did decrease to 2.7. Bilirubin returned to normal Constipated * Given MiraLAX and Dulcolax * Had a bowel movement yesterday * Continue to follow Patient will likely be here for another 1 to 2 days. 03/11/2020 Patient continues to improve. His white count did increase to 20,000 but his C- reactive protein has decreased. The increase in white count is likely demargination from the steroids. INR has increased expectedly to 4.0. Although other are some rales in the bases he has had a significant improvement and he is off oxygen. Liver function has returned to normal with alkaline phosphatase the only enzyme mildly elevated at 131. Albumin is low, but stable at 2.7. Total bilirubin normal at 0.5. DC Solu-Medrol and start prednisone 40 mg daily. Recheck labs in the morning. Follow results of sputum culture and blood cultures. Urine pneumococcal antigen negative. If patient continues to improve he will be discharged tomorrow. March 12, 2020 Patient has continued improvement. He has been afebrile and is not short of breath. He does have a productive cough still of blood-tinged sputum. Pneumoniaimproving Sepsis resolved Likely COPD * Sputum culture positive for streptococcal pneumoniae pansensitive * Patient currently on Rocephin * Blood cultures negative * No lab work today * Switch to prednisone Atrial fibrillation anticoagulated with warfarin * INR has increased to 6. * No active bleeding so we will hold warfarin and not give vitamin K * Recheck INR in the morning Elevated PSA with history of BPH * Repeat PSA in the morning Elevated liver enzymes * Repeat enzymes in the morning Constipation * Positive bowel movement today Plan discharge tomorrow on oral antibiotics. March 13, 2020 Patient did very well over the hospitalization. INR is down to 5. He will need to hold it again today and follow-up with the Coumadin clinic tomorrow. He will go home on Omnicef. - Patient Instructions Diet: Heart Healthy Diet Activity: As Tolerated Driving: Do Not Drive Showering/Bathing: May Shower Notify Provider of: Fever Other/Special Instructions: Follow-up with your primary care provider within the next week. You need to be seen by the Coumadin clinic tomorrow. Do not take any Coumadin/warfarin today. Your INR/PT is going to be elevated secondary to antibiotic. - Discharge Plan *PRESCRIPTION DRUG MONITORING PROGRAM REVIEWED*: Not Applicable *COPY OF PRESCRIPTION DRUG MONITORING REPORT IN PATIENT SAVANA: Not Applicable Prescriptions/Med Rec: Cefdinir [Omnicef] 300 mg PO BID #10 cap predniSONE 40 mg PO DAILY #10 tablet Home Medications: Home Meds Fish Oil/[place]-3 Fatty Acids [Fish Oil] 1,000 mg PO DAILY 05/23/14 [History] Simvastatin [Zocor] 40 mg PO BEDTIME 09/19/14 [History] Metoprolol Succinate 25 mg PO DAILY 06/09/18 [History] Aspirin [Halfprin] 81 mg PO DAILY tab.ec 06/10/18 [Rx] Acetaminophen [Tylenol] 500 mg PO DAILY 03/09/20 [History] Albuterol [Proventil HFA] 2 puff IH Q12H 03/09/20 [History] Brimonidine Tartrate [Brimonidine Tartrate 0.2% Ophth Soln] 1 drop EYEBOTH BID 03/09/20 [History] Cetirizine [ZyrTEC] 10 mg PO DAILY 03/09/20 [History] Fluticasone/Vilanterol [Breo Ellipta 100-25 MCG Inhalation Kit] 1 puff IN DAILY 03/09/20 [History] Magnesium 250 mg PO DAILY 03/09/20 [History] Multivit-Min/FA/Lycopen/Lutein [Centrum Silver Tablet] 1 tab PO DAILY 03/09/20 [History] Nitroglycerin [Nitrostat] 0.4 mg SL ASDIRECTED PRN 03/09/20 [History] Cefdinir [Omnicef] 300 mg PO BID #10 cap 03/13/20 [Rx] Warfarin Sliding Scale [Coumadin Sliding Scale] 0 each PO QPM tablet 03/13/20 [Rx] predniSONE 40 mg PO DAILY #10 tablet 03/13/20 [Rx] Patient Handouts: Heart-Healthy Eating Plan, [id number], Sepsis, Diagnosis, Adult, Low-Sodium Eating Plan, Heart Failure, Diagnosis Forms: ED Department Discharge Referrals: Eden Collier MD [Primary Care Provider] - 03/20/20 2:00 pm ( Please follow up with Dr. Collier on at 200pm. ) - Discharge Summary/Plan Comment DC Time >30 min.: Yes - General Info Date of Service: 03/13/20 Subjective Update: Patient is doing well without any complaints. Functional Status: Reports: Pain Controlled - Review of Systems HEENT: Reports: No Symptoms Pulmonary: Reports: No Symptoms Cardiovascular: Reports: No Symptoms Gastrointestinal: Reports: No Symptoms Musculoskeletal: Reports: No Symptoms - Patient Data Vitals - Most Recent: Last Vital Signs Temp 97.2 F 03/13/20 07:45 Pulse 51 L 03/13/20 09:08 Resp 20 03/13/20 07:45 BP 133/76 03/13/20 09:08 Pulse Ox 96 03/13/20 09:55 Weight - Most Recent: 177 lb 4.8 oz I&O - Last 24 hours: Intake & Output 03/12/20 03/13/20 03/13/20 22:59 06:59 14:59 Intake Total 2360 400 460 Output Total 250 Balance 2110 400 460 Lab Results - Last 24 hrs: Laboratory Results - last 24 hr 03/13/20 03/13/20 03/13/20 Range/Units 05:00 05:00 05:00 WBC 13.31 H (4.23-9.07) K/mm3 RBC 4.04 L (4.63-6.08) M/mm3 Hgb 12.3 L (13.7-17.5) gm/dl Hct 39.8 L (40.1-51.0) % MCV 98.5 H D (79.0-92.2) fl MCH 30.4 (25.7-32.2) pg MCHC 30.9 L (32.2-35.5) g/dl RDW Std Deviation 53.5 H (35.1-43.9) fL Plt Count 273 (163-337) K/mm3 MPV 9.7 (9.4-12.3) fl Neut % (Auto) 71.2 H (34.0-67.9) % Lymph % (Auto) 18.6 L (21.8-53.1) % [place] % (Auto) 8.3 (5.3-12.2) % Eos % (Auto) 0 L (0.8-7.0) Baso % (Auto) 0.2 (0.1-1.2) % Neut # (Auto) 9.48 H (1.78-5.38) K/mm3 Lymph # (Auto) 2.48 (1.32-3.57) K/mm3 [place] # (Auto) 1.11 H (0.30-0.82) K/mm3 Eos # (Auto) 0.00 L (0.04-0.54) K/mm3 Baso # (Auto) 0.02 (0.01-0.08) K/mm3 Manual Slide Review Abnormal smear PT 57.1 H* (9.7-12.0) SECONDS INR 5.52 H* Sodium 142 (136-145) mEq/L Potassium 4.1 (3.5-5.1) mEq/L Chloride 109 H (98-107) mEq/L Carbon Dioxide 24 (21-32) mEq/L Anion Gap 13.1 (5-15) BUN 25 H (7-18) mg/dL Creatinine 0.8 (0.7-1.3) mg/dL Est Cr Clr Drug Dosing 67.51 mL/min Estimated GFR (MDRD) > 60 (>60) mL/min BUN/Creatinine Ratio 31.3 H (14-18) Glucose 112 (83-115) mg/dL Calcium 8.5 (8.5-10.1) mg/dL Total Bilirubin 0.3 (0.2-1.0) mg/dL AST 83 H (15-37) U/L ALT 128 H (16-63) U/L Alkaline Phosphatase 112 (46-116) U/L Total Protein 6.3 L (6.4-8.2) g/dl Albumin 2.5 L (3.4-5.0) g/dl Globulin 3.8 gm/dL Albumin/Globulin Ratio 0.7 L (1-2) KALYN Results - Last 24 hrs: Microbiology 03/09/20 10:35 Aerobic Blood Culture - Preliminary Blood - Venous - Lab Draw NO GROWTH AFTER 4 DAYS Anaerobic Blood Culture - Preliminary NO GROWTH AFTER 4 DAYS 03/09/20 10:28 Aerobic Blood Culture - Preliminary Blood - Venous NO GROWTH AFTER 4 DAYS Anaerobic Blood Culture - Preliminary NO GROWTH AFTER 4 DAYS 03/09/20 17:27 Gram Stain - Final Sputum - Expectorated Sputum Culture - Final Streptococcus Pneumoniae Med Orders - Current: Current Medications Acetaminophen (Tylenol) 650 mg PO Q4H PRN PRN Reason: Pain (Mild 1-3)/fever Last Admin: 03/10/20 20:06 Dose: 650 mg Documented by: Acetaminophen (Tylenol) 650 mg PO DAILY [facility] Last Admin: 03/13/20 09:08 Dose: 650 mg Documented by: Albuterol (Proventil Neb Soln) 2.5 mg NEB Q2H PRN PRN Reason: Shortness Of Breath/wheezing Albuterol (Proventil Hfa) 0 gm INH Q12H [facility] Last Admin: 03/13/20 09:53 Dose: 2 inhalation Documented by: Albuterol/Ipratropium (Duoneb 3.0-0.5 Mg/3 Ml) 3 ml NEB Q4H PRN PRN Reason: Shortness Of Breath/wheezing Last Admin: 03/09/20 20:58 Dose: 3 ml Documented by: Aspirin (Halfprin) 81 mg PO DAILY [facility] Last Admin: 03/13/20 09:08 Dose: 81 mg Documented by: Bisacodyl (Dulcolax) 5 mg PO DAILY PRN PRN Reason: Constipation Last Admin: 03/10/20 09:10 Dose: 5 mg Documented by: Brimonidine Tartrate (Alphagan 0.2% Ophth Soln) 0 ml EYEBOTH BID [facility] Last Admin: 03/13/20 09:07 Dose: 1 drop Documented by: Famotidine (Pepcid) 20 mg PO BID [facility] Last Admin: 03/13/20 09:08 Dose: 20 mg Documented by: Ceftriaxone Sodium 2 gm/ (Sodium Chloride) 100 mls @ 200 mls/hr IV Q24H [facility] Last Admin: 03/12/20 12:55 Dose: 200 mls/hr Documented by: Loratadine (Claritin) 10 mg PO DAILY [facility] Last Admin: 03/13/20 09:08 Dose: 10 mg Documented by: Metoprolol Succinate (Toprol Xl) 25 mg PO DAILY [facility] Last Admin: 03/13/20 09:08 Dose: 25 mg Documented by: Mometasone Furoate/Formoterol Fumar (Dulera 200-5 Mcg) 2 puff IH BID [facility] Last Admin: 03/13/20 09:53 Dose: 2 inhalation Documented by: Nitroglycerin (Nitrostat) 0.4 mg SL ASDIRECTED PRN PRN Reason: Chest Pain Ondansetron HCl (Zofran) 4 mg IV Q4H PRN PRN Reason: Nausea/Vomiting Oxycodone HCl (Oxycodone) 5 mg PO Q4H PRN PRN Reason: Pain (moderate 4-6) Polyethylene Glycol (Miralax) 17 gm PO DAILY PRN PRN Reason: Constipation Last Admin: 03/10/20 08:05 Dose: 17 gm Documented by: Prednisone (Prednisone) 40 mg PO DAILY [facility] Last Admin: 03/13/20 09:08 Dose: 40 mg Documented by: Senna/Docusate Sodium (Senna Plus) 1 tab PO BID PRN PRN Reason: Constipation Simvastatin (Zocor) 40 mg PO BEDTIME [facility] Last Admin: 03/12/20 20:50 Dose: 40 mg Documented by: Warfarin Sodium (Pharmacy To Dose - Warfarin) 1 dose .XX ASDIRECTED PRN PRN Reason: RX TO DOSE WARFARIN Warfarin Sodium (Coumadin Sliding Scale) 0 each PO QPM [facility] Stop: 03/13/20 18:01 Discontinued Medications Acetaminophen (Tylenol) 975 mg PO ONETIME ONE Stop: 03/09/20 11:49 Last Admin: 03/09/20 12:36 Dose: 975 mg Documented by: Furosemide (Lasix) 40 mg IVPUSH NOW ONE Stop: 03/09/20 10:37 Last Admin: 03/09/20 11:13 Dose: 40 mg Documented by: Dextrose/Sodium Chloride (Dextrose 5%-Normal Saline) 1,000 mls @ 75 mls/hr IV ASDIRECTED [facility] Last Infusion: 03/09/20 14:45 Dose: Infused Documented by: Ceftriaxone Sodium 2 gm/ (Sodium Chloride) 100 mls @ 200 mls/hr IV ONETIME ONE Stop: 03/09/20 12:21 Last Admin: 03/09/20 12:35 Dose: 200 mls/hr Documented by: Lactated Ringer's (Ringers, Lactated) 1,000 mls @ 999 mls/hr IV .BOLUS ONE Stop: 03/09/20 16:16 Last Admin: 03/09/20 15:30 Dose: 999 mls/hr Documented by: Azithromycin 500 mg/ Sodium (Chloride) 250 mls @ 250 mls/hr IV Q24H [facility] Stop: 03/11/20 16:59 Last Admin: 03/11/20 17:51 Dose: 250 mls/hr Documented by: Lactated Ringer's (Ringers, Lactated) 500 mls @ 999 mls/hr IV .BOLUS ONE Stop: 03/09/20 17:22 Last Admin: 03/09/20 17:13 Dose: 500 mls/hr Documented by: Magnesium Sulfate (Magnesium Sulfate In Water 2 Gm/50 Ml) 2 gm in 50 mls @ 25 mls/hr IV Q1H [facility] Lactated Ringer's (Ringers, Lactated) Confirm Administered Dose 1,000 mls @ as directed .ROUTE .STK-MED ONE Stop: 03/09/20 17:02 Last Admin: 03/09/20 17:33 Dose: Not Given Documented by: Magnesium Sulfate (Magnesium Sulfate In Water 2 Gm/50 Ml) 2 gm in 50 mls @ 25 mls/hr IV ONETIME ONE Stop: 03/09/20 19:59 Last Admin: 03/09/20 19:08 Dose: 25 mls/hr Documented by: Sodium Chloride (Normal Saline) 1,000 mls @ 75 mls/hr IV ASDIRECTED [facility] Last Admin: 03/09/20 19:09 Dose: 75 mls/hr Documented by: Iopamidol (Isovue-300 (61%)) 100 ml IVPUSH ONETIME ONE Stop: 03/09/20 11:56 Last Admin: 03/09/20 12:18 Dose: 100 ml Documented by: Iopamidol (Isovue-300 (61%)) 25 ml IVPUSH ONETIME ONE Stop: 03/09/20 11:56 Last Admin: 03/09/20 12:18 Dose: 25 ml Documented by: Methylprednisolone Sodium Succinate (Solu-Medrol) 60 mg IVPUSH Q8H [facility] Last Admin: 03/11/20 03:01 Dose: 60 mg Documented by: Sodium Chloride (Saline Flush) 10 ml FLUSH ONETIME PRN PRN Reason: Keep Vein Open Last Admin: 03/09/20 12:19 Dose: 10 ml Documented by: Warfarin Sodium (Coumadin) 2.5 mg PO ONETIME ONE Stop: 03/09/20 18:01 Warfarin Sodium (Coumadin) 2.5 mg PO ONETIME ONE Stop: 03/09/20 21:01 Last Admin: 03/09/20 20:13 Dose: 2.5 mg Documented by: Warfarin Sodium (Coumadin) 2 mg PO QPM [facility] Stop: 03/10/20 18:01 Last Admin: 03/10/20 18:19 Dose: 2 mg Documented by: Warfarin Sodium (Coumadin Sliding Scale) 0 each PO QPM [facility] Stop: 03/11/20 18:01 Last Admin: 03/11/20 17:03 Dose: Not Given Documented by: Warfarin Sodium (Coumadin Sliding Scale) 0 each PO QPM [facility] Stop: 03/12/20 18:01 Last Admin: 03/12/20 18:08 Dose: Not Given Documented by: - Exam Quality Assessment: Denies: Supplemental Oxygen General: Reports: Alert, Oriented HEENT: Reports: Pupils Equal, Mucous Membr. Moist/[place] Neck: Reports: Supple Lungs: Reports: Clear to Auscultation, Normal Respiratory Effort Cardiovascular: Reports: Regular Rate, Regular Rhythm GI/Abdominal Exam: Normal Bowel Sounds, Soft, Non-Tender, No Organomegaly, No Distention, No Abnormal Bruit, No Mass Extremities: Normal Inspection, Normal Range of Motion, No Pedal Edema, Normal Capillary Refill Psy/Mental Status: Reports: Alert, Normal Affect, Normal Mood
[2020-03-13 11:48] VITALS: BP 90/49; PULSE 48
[2020-03-13] MEDS: cefTRIAXone 2 GM in Sodium Chloride 0.9% 100 ML IV SCH (13:13)
[2020-03-13] MEDS ORDERED: Warfarin Sliding Scale PO SCH (18:00)
== END 2020-03-13 14:50 | disposition home or self-care (01) | DRG 871 ==
LOC: JD.ED 09:46 → JD.MS 13:17 → JD.ICU 14:37 → JD.MS 03-11 13:53
PROVIDERS: ADMIT Family Medicine; ATTEND Family Medicine
DX: A41.9 Sepsis, unspecified organism (principal); J18.9 Pneumonia, unspecified organism; J90 Pleural effusion, not elsewhere classified; R09.02 Hypoxemia; R50.9 Fever, unspecified; E87.3 Alkalosis; J44.0 Chronic obstructive pulmonary disease with (acute) lower respiratory infection; Z91.038 Other insect allergy status; I48.20 Chronic atrial fibrillation, unspecified; Z20.822 Contact with and (suspected) exposure to COVID-19; N40.0 Benign prostatic hyperplasia without lower urinary tract symptoms; K59.00 Constipation, unspecified; G47.30 Sleep apnea, unspecified; G89.29 Other chronic pain; M54.9 Dorsalgia, unspecified; N40.1 Benign prostatic hyperplasia with lower urinary tract symptoms; R35.0 Frequency of micturition; R97.20 Elevated prostate specific antigen [PSA]; R65.20 Severe sepsis without septic shock; H54.7 Unspecified visual loss; I50.9 Heart failure, unspecified; Z79.01 Long term (current) use of anticoagulants; Z88.5 Allergy status to narcotic agent; Z86.73 Personal history of transient ischemic attack (TIA), and cerebral infarction without residual deficits; Z91.030 Bee allergy status; Z79.82 Long term (current) use of aspirin; Z79.899 Other long term (current) drug therapy; Z95.5 Presence of coronary angioplasty implant and graft; Z98.890 Other specified postprocedural states
CPT/HCPCS: 36415; 36600; 71045; 71045-26; 71260; 71260-26; 74177; 74177-26; 80053; 81001; 82553; 82803; 82977; 83605; 83690; 83735; 83880; 84443; 84484; 85007; 85025; 85027; 85610; 85730; 86140; 87040; 87070; 87077; 87181; 87184; 87205; 87899; 93005; 93010; 94640; 94667; 94668; 94760; 94761; 96365; 96375; 97110-GP; 97116-GP; 97162-GP; 99223; 99232; 99233; 99239; 99285; 99285-25; A9270-GY; G0103; J0456; J0696; J1940; J2920; J3475; J7030; J7042; J7050; J7120; J7512; J7620-GY; Q9967; U0002

== ENCOUNTER 2020-10-14 13:23 | Emergency (ER) | payer MEDICARE, OTHER ==
[2020-10-14 13:31] VITALS: BP 117/80; PULSE 85
[2020-10-14] MEDS ORDERED: predniSONE 20 MG Tab PO ONE (13:48)
--- NOTE | 2020-10-14 13:51 | EDM.PDOC ---
ED HPI GENERAL MEDICAL PROBLEM - General Chief Complaint: Allergic Reaction Stated Complaint: BEE STING-ALLERGIC TO BEES Time Seen by Provider: 10/14/20 13:26 Source of Information: Reports: Patient, RN Notes Reviewed History Limitations: Reports: No Limitations - History of Present Illness INITIAL COMMENTS - FREE TEXT/NARRATIVE: Patient is an 85-year-old male presenting to the emergency department with complaints of wasp bite to his left hand. Reports about 1030 this morning he was working in his garden when he was stung by a wasp. Has some itching and burning to the site. Denies any itching swelling in his throat or shortness of breath. - Related Data Allergies Allergy/AdvReac Type Severity Reaction Status Date / Time venom-honey bee Allergy Severe Anaphylactic Verified 10/14/20 13:31 [bee venom (honey bee)] Shock venom-wasp [wasp venom] Allergy Severe Itching Verified 10/14/20 13:31 Home Meds: Home Meds Fish Oil/[place]-3 Fatty Acids [Fish Oil] 1,000 mg PO DAILY 05/23/14 [History] Simvastatin [Zocor] 40 mg PO BEDTIME 09/19/14 [History] Metoprolol Succinate 25 mg PO DAILY 06/09/18 [History] Aspirin [Halfprin] 81 mg PO DAILY tab.ec 06/10/18 [Rx] Albuterol [Proventil HFA] 2 puff IH Q12H 03/09/20 [History] Brimonidine Tartrate [Brimonidine Tartrate 0.2% Ophth Soln] 1 drop EYEBOTH BID 03/09/20 [History] Fluticasone/Vilanterol [Breo Ellipta 100-25 MCG Inhalation Kit] 1 puff IN DAILY 03/09/20 [History] Magnesium 250 mg PO DAILY 03/09/20 [History] Multivit-Min/FA/Lycopen/Lutein [Centrum Silver Tablet] 1 tab PO DAILY 03/09/20 [History] Warfarin Sliding Scale [Coumadin Sliding Scale] 0 each PO QPM tablet 03/13/20 [Rx] predniSONE [Prednisone] 20 mg PO ONETIME #1 tablet 10/14/20 [Rx] Past Medical History HEENT History: Reports: Cataract, Impaired Vision Other HEENT History: wears eyeglasses Cardiovascular History: Reports: Afib, Heart Failure, Stents, Other (See Below) Other Cardiovascular History: varicose veins Respiratory History: Reports: Sleep Apnea Other Respiratory History: 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 Gastrointestinal History: Reports: Other (See Below) Other Gastrointestinal History: Inguinal hernia Genitourinary History: Reports: BPH, Other (See Below) Other Genitourinary History: urinary frequency Musculoskeletal History: Reports: Back Pain, Chronic Neurological History: Reports: CVA, Other (See Below) Other Neuro History: Brain bleed--in the past. Hematologic History: Reports: Anticoagulation Therapy - Infectious Disease History Infectious Disease History: Reports: Chicken Pox, Measles, Mumps - Past Surgical History HEENT Surgical History: Reports: Cataract Surgery, Tonsillectomy Other Cardiovascular Surgeries/Procedures: patient reports metal in heart but not pacemaker Neurological Surgical History: Reports: Lumbar Spine Other Neurological Surgeries/Procedures: surgery on lower back Musculoskeletal Surgical History: Reports: Other (See Below) Other Musculoskeletal Surgeries/Procedures:: rods in back Social & Family History - Family History Family Medical History: No Pertinent Family History - Tobacco Use Tobacco Use Status *Q: Never Tobacco User - Caffeine Use Caffeine Use: Reports: None Other Caffeine Use: occassionally - Recreational Drug Use Recreational Drug Use: No - Living Situation & Occupation Living situation: Reports: , with Spouse Occupation: Retired ED ROS ALLERGIC REACTION - Review of Systems Review Of Systems: Comprehensive ROS is negative, except as noted in HPI. ED EXAM GENERAL NO PERIP PULSE - Physical Exam Exam: See Below Exam Limited By: No Limitations General Appearance: Alert, WD/WN, No Apparent Distress Respiratory/Chest: No Respiratory Distress, Lungs Clear, Normal Breath Sounds, No Accessory Muscle Use, Chest Non-Tender Cardiovascular: Normal Peripheral Pulses, Regular Rate, Rhythm, No Edema, No Gallop, No JVD, No Murmur, No Rub Extremities: Other (Mild swelling and erythema to the dorsal aspect of the left hand.) Neurological: Alert, Oriented, CN II-XII Intact, Normal Cognition, Normal Gait, Normal Reflexes, No Motor/Sensory Deficits Psychiatric: Normal Affect, Normal Mood Course - Vital Signs Last Recorded V/S: Last Vital Signs Temp 96.8 F L 10/14/20 13:28 Pulse 85 10/14/20 13:28 Resp 16 10/14/20 13:28 BP 117/80 10/14/20 13:28 Pulse Ox 95 10/14/20 13:28 - Orders/Labs/Meds Meds: Medications Discontinued Medications Generic Name Dose Route Start Last Admin Trade Name Emanuel PRKathryn Reason Stop Dose Admin Prednisone 20 mg 10/14/20 13:48 10/14/20 14:04 Prednisone 20 Mg Tab PO 10/14/20 13:49 20 mg ONETIME ONE Administration - Re-Assessments/Exams Free Text/Narrative Re-Assessment/Exam: Patient is an 85-year-old male presenting to the emergency department with complaints of wasp sting to his left hand. He was stung around 1030 this mornin g. 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 He denies any history of anaphylaxis or airway involvement to these reactions. He has a mild localized reaction to the dorsal aspect of the left hand. Lung sounds are clear. We will give him prednisone 20 mg here today and then sent a prescription for a tab for tomorrow. Recommend cold pack. Discussed return precautions. Discharge instructions as document. Departure - Departure Time of Disposition: 13:54 Disposition: Home, Self-Care 01 Condition: Good Clinical Impression: Wasp sting Qualifiers: Encounter type: initial encounter Injury intent: accidental or unintentional Qualified Code(s): T63.461A - Toxic effect of venom of wasps, accidental (unintentional), initial encounter - Discharge Information *PRESCRIPTION DRUG MONITORING PROGRAM REVIEWED*: No *COPY OF PRESCRIPTION DRUG MONITORING REPORT IN PATIENT [place]AVA[place]: No Prescriptions: predniSONE [Prednisone] 20 mg PO ONETIME #1 tablet Instructions: Bee, Wasp, or Hornet Sting, Adult Referrals: Eden Collier MD [Primary Care Provider] - Forms: ED Department Discharge Additional Instructions: You were seen in the emergency department today for evaluation of a wasp bite to your left hand. In the ER, you received a dose of prednisone which is a steroid. A prescription has been sent for a second tablet which she will take tomorrow morning. Recommend intermittent cold compress to the area. If you should experience worsening symptoms such as significant increase swelling, swelling or itchiness in your throat, or shortness of breath, please return to the emergency department for reevaluation. Sepsis Event Note (ED) - Evaluation Sepsis Screening Result: No Definite Risk - Focused Exam Vital Signs: Vital Signs Temp Pulse Resp BP Pulse Ox 10/14/20 13:28 96.8 F L 85 16 117/80 95
== END 2020-10-14 14:05 | disposition home or self-care (01) ==
LOC: JD.ED 13:23
DX: T63.461A Toxic effect of venom of wasps, accidental (unintentional), initial encounter (principal); Z91.030 Bee allergy status; Z79.82 Long term (current) use of aspirin; Z79.01 Long term (current) use of anticoagulants; Z86.73 Personal history of transient ischemic attack (TIA), and cerebral infarction without residual deficits
CPT/HCPCS: 99282; J7512

== ENCOUNTER 2022-08-30 20:36 | Emergency (ER) | payer MEDICARE, OTHER ==
[2022-08-30] MEDS ORDERED: diphenhydrAMINE 50 MG/ML SDV IVPUSH ONE (20:46)
[2022-08-30] MEDS ORDERED: methylPREDNISolone Sodium Succinate 125 MG/2 ML SDV IVPUSH ONE (20:46)
[2022-08-30] MEDS ORDERED: Sodium Chloride 0.9% 1,000 ML IV ONE (20:52)
[2022-08-30] MEDS ORDERED: predniSONE 20 MG Tab PO ONE (21:46)
[2022-08-31 00:17] VITALS: BP 104/60; PULSE 66
== END 2022-08-30 23:01 | disposition home or self-care (01) ==
LOC: JD.ED 20:36
DX: T63.441A Toxic effect of venom of bees, accidental (unintentional), initial encounter (principal); I48.91 Unspecified atrial fibrillation; Z91.030 Bee allergy status; Z79.82 Long term (current) use of aspirin; Z79.899 Other long term (current) drug therapy; Z79.01 Long term (current) use of anticoagulants; Z86.16 Personal history of COVID-19
CPT/HCPCS: 96361; 96374; 96375; 99282; J1200; J2930; J7030; J7512; 99284

== ENCOUNTER 2022-09-04 17:17 | Emergency (ER) | payer MEDICARE, OTHER ==
[2022-09-04] MEDS ORDERED: methylPREDNISolone Sodium Succinate 125 MG/2 ML SDV IVPUSH ONE (17:29)
[2022-09-04] MEDS ORDERED: Famotidine 20 MG/2 ML SDV IVPUSH ONE (17:29)
[2022-09-04 19:43] VITALS: BP 142/77; PULSE 53
== END 2022-09-04 19:41 | disposition home or self-care (01) ==
LOC: JD.ED 17:17
DX: T63.461A Toxic effect of venom of wasps, accidental (unintentional), initial encounter (principal); I48.91 Unspecified atrial fibrillation; Z95.5 Presence of coronary angioplasty implant and graft; Z79.01 Long term (current) use of anticoagulants; Z79.82 Long term (current) use of aspirin; Z79.899 Other long term (current) drug therapy; Z91.030 Bee allergy status
CPT/HCPCS: 96374; 96375; 99284; J2930; J3490

== ENCOUNTER 2022-11-16 15:02 | Inpatient (IN) | payer MEDICARE, OTHER ==
[2022-11-16] MEDS ORDERED: Lactated Ringers 1,000 ML IV ONE (15:14)
[2022-11-16] MEDS ORDERED: Albuterol/Ipratropium 3.0-0.5 MG/3 ML Neb Soln NEB ONE (15:16)
[2022-11-16 15:50] LABS: BASE EXCESS ARTERIAL -0.6 (-2-2.0); BICARBONATE,ARTERIAL 23.9 meq/L (22.0-26.0); PCO2 ARTERIAL 41.1 mmHg (35.0-45.0)
[2022-11-16 15:53] LABS: BASOPHILS PERCENT AUTO 0.3 % (0.0-1.0); EOSINOPHILS PERCENT AUTO 0.2 % (0.0-6.0); HEMATOCRIT 44.9 % (42.0-52.0); HEMOGLOBIN 14.8 gm/dl (14.0-18.0); IMMATURE GRAN ABSOLUTE AUTO 0.03 K/mm3 (0.00-0.05); IMMATURE GRAN PERCENT AUTO 0.3 % (0.0-0.4); LYMPHOCYTES ABSOLUTE AUTO 0.7 K/mm3 (1.0-4.8); MEAN CORPUSCULAR HEMOGLOBIN 31.6 pg (28.0-32.0); MEAN CORPUSCULAR VOLUME 95.9 fl (83.0-99.0); MEAN PLATELET VOLUME 8.8 fl (9.4-12.4); MONOCYTES ABSOLUTE AUTO 0.7 K/mm3 (0.0-0.8); MONOCYTES PERCENT AUTO 6.1 % (0.0-8.0); NEUTROPHILS ABSOLUTE AUTO 10.1 K/mm3 (1.8-7.7); NEUTROPHILS PERCENT AUTO 87.1 % (41.0-71.0); PLATELET COUNT,PLT 261 K/mm3 (150-400); RED BLOOD CELL COUNT 4.68 M/mm3 (4.52-5.90); WHITE BLOOD CELL COUNT,WBC 11.64 K/mm3 (3.9-11.3)
[2022-11-16 16:12] LABS: INR 2.06; PROTHROMBIN TIME 20.9 SECONDS (9.7-12.0)
[2022-11-16 16:18] LABS: ALBUMIN 3.8 g/dl (3.4-5.0); ANION GAP 12.9 (5-15); BILIRUBIN TOTAL 1.6 mg/dL (0.2-1.0); EST CRCL DRUG DOSING (CG) 53.74 mL/min; POTASSIUM,K 3.9 mEq/L (3.5-5.1); PROTEIN TOTAL,TP 7.5 g/dl (6.4-8.2)
[2022-11-16 16:29] LABS: CORONAVIRUS COVID-19 NAA NEGATIVE (NEGATIVE); INFLUENZA A NAA NEGATIVE (NEGATIVE); RESPIRATORY SYNCYTIAL VIR NAA NEGATIVE (NEGATIVE)
[2022-11-16] MEDS ORDERED: cefTRIAXone 2 GM in Sodium Chloride 0.9% 100 ML IV ONE (17:02)
[2022-11-16] MEDS ORDERED: Sodium Chloride 0.9% 1,000 ML IV ONE (17:08)
[2022-11-16 18:03] LABS: APPEARANCE,URINE CLEAR (Clear); BILIRUBIN,URINE NEGATIVE (Negative); COLOR,URINE YELLOW (Yellow); GLUCOSE,URINE NEGATIVE (Negative); KETONES,URINE TRACE (Negative); LEUKOCYTE ESTERASE,URINE NEGATIVE (Negative); NITRITE,URINE NEGATIVE (Negative); OCCULT BLOOD,URINE NEGATIVE (Negative); PROTEIN,URINE 1+ (Negative); UROBILINOGEN,URINE 0.2 (0.2-1.0)
[2022-11-16 18:22] LABS: BACTERIA,URINE FEW /hpf (FEW); RBC,URINE 0-5 /hpf (0-5); SQUAMOUS EPITHELIAL CELLS,UR 0-5 /hpf (0-5); WBC,URINE 0-5 /hpf (0-5)
[2022-11-16 18:23] LABS: MUCUS,URINE MANY /hpf (FEW)
[2022-11-16] MEDS ORDERED: Acetaminophen 325 MG Tab PO PRN (18:37)
[2022-11-16] MEDS ORDERED: Ondansetron 4 MG/2 ML SDV IV PRN (18:37)
[2022-11-16] MEDS ORDERED: Albuterol/Ipratropium 3.0-0.5 MG/3 ML Neb Soln NEB SCH (18:45)
[2022-11-16] MEDS: Albuterol/Ipratropium 3.0-0.5 MG/3 ML Neb Soln NEB SCH (21:35)
[2022-11-17] MEDS: Albuterol/Ipratropium 3.0-0.5 MG/3 ML Neb Soln NEB SCH ×4 (02:14→22:07)
[2022-11-17 07:12] LABS: HEMOGLOBIN 13.6 gm/dl (14.0-18.0); MEAN CORPUSCULAR HEMOGLOBIN 31.8 pg (28.0-32.0); MEAN CORPUSCULAR HGB CONC 33.2 g/dl (32.0-36.0); MEAN CORPUSCULAR VOLUME 95.8 fl (83.0-99.0); MEAN PLATELET VOLUME 9.8 fl (9.4-12.4); PLATELET COUNT,PLT 237 K/mm3 (150-400); RED BLOOD CELL COUNT 4.28 M/mm3 (4.52-5.90); WHITE BLOOD CELL COUNT,WBC 15.58 K/mm3 (3.9-11.3)
[2022-11-17 07:21] LABS: INR 2.11; PROTHROMBIN TIME 21.4 SECONDS (9.7-12.0)
[2022-11-17 07:34] LABS: ALBUMIN 3.2 g/dl (3.4-5.0); ANION GAP 10.7 (5-15); BILIRUBIN TOTAL 1.7 mg/dL (0.2-1.0); BUN/CREATININE RATIO 22.2 (14-18); C-REACTIVE PROTEIN 7.4 mg/dL (<1.0); CALCIUM 8.3 mg/dL (8.5-10.1); CREATININE 0.9 mg/dL (0.7-1.3); EST CRCL DRUG DOSING (CG) 55.94 mL/min; POTASSIUM,K 3.7 mEq/L (3.5-5.1); PROTEIN TOTAL,TP 6.4 g/dl (6.4-8.2)
[2022-11-17] MEDS: Metoprolol Succinate 25 MG Tab.ER PO SCH (09:30)
[2022-11-17] MEDS: atorvaSTATin 20 MG Tab PO SCH (09:33)
[2022-11-17] MEDS: Aspirin 81 MG Tab.EC PO SCH (09:33)
[2022-11-17] MEDS: Magnesium Oxide 400 MG Tab PO SCH (10:35)
[2022-11-17] MEDS: Polyethylene Glycol 3350 Powder 17 GM Packet PO SCH (10:35)
[2022-11-17] MEDS: cefTRIAXone 2 GM in Sodium Chloride 0.9% 100 ML IV SCH (17:42)
[2022-11-17] MEDS ORDERED: Warfarin 2.5 MG Tab PO SCH (18:00)
[2022-11-18] MEDS: Albuterol/Ipratropium 3.0-0.5 MG/3 ML Neb Soln NEB SCH ×4 (03:09→20:26)
[2022-11-18 05:51] LABS: HEMATOCRIT 39.3 % (42.0-52.0); HEMOGLOBIN 12.7 gm/dl (14.0-18.0); MEAN CORPUSCULAR HEMOGLOBIN 30.8 pg (28.0-32.0); MEAN CORPUSCULAR HGB CONC 32.3 g/dl (32.0-36.0); MEAN CORPUSCULAR VOLUME 95.4 fl (83.0-99.0); MEAN PLATELET VOLUME 9.8 fl (9.4-12.4); PLATELET COUNT,PLT 221 K/mm3 (150-400); RED BLOOD CELL COUNT 4.12 M/mm3 (4.52-5.90); WHITE BLOOD CELL COUNT,WBC 12.28 K/mm3 (3.9-11.3)
[2022-11-18 05:58] LABS: A/G RATIO 0.9 (1-2); BILIRUBIN TOTAL 1.3 mg/dL (0.2-1.0); BUN/CREATININE RATIO 18.8 (14-18); C-REACTIVE PROTEIN 10.3 mg/dL (<1.0); CALCIUM 8.5 mg/dL (8.5-10.1); CREATININE 0.8 mg/dL (0.7-1.3); EST CRCL DRUG DOSING (CG) 62.94 mL/min; PROTEIN TOTAL,TP 6.4 g/dl (6.4-8.2)
[2022-11-18 06:10] LABS: INR 1.59; PROTHROMBIN TIME 16.4 SECONDS (9.7-12.0)
[2022-11-18] MEDS: Magnesium Oxide 400 MG Tab PO SCH (08:40)
[2022-11-18] MEDS: atorvaSTATin 20 MG Tab PO SCH (08:40)
[2022-11-18] MEDS: Metoprolol Succinate 25 MG Tab.ER PO SCH (08:40)
[2022-11-18] MEDS: Aspirin 81 MG Tab.EC PO SCH (08:40)
[2022-11-18] MEDS: Polyethylene Glycol 3350 Powder 17 GM Packet PO SCH (08:41)
[2022-11-18] MEDS: cefTRIAXone 2 GM in Sodium Chloride 0.9% 100 ML IV SCH (16:41)
[2022-11-18] MEDS ORDERED: Warfarin 3 MG Tab PO SCH (18:00)
[2022-11-19] MEDS: Albuterol/Ipratropium 3.0-0.5 MG/3 ML Neb Soln NEB SCH ×2 (02:38→08:15)
[2022-11-19 06:41] LABS: HEMATOCRIT 39.8 % (42.0-52.0); HEMOGLOBIN 13.1 gm/dl (14.0-18.0); MEAN CORPUSCULAR HEMOGLOBIN 31.6 pg (28.0-32.0); MEAN CORPUSCULAR HGB CONC 32.9 g/dl (32.0-36.0); MEAN CORPUSCULAR VOLUME 95.9 fl (83.0-99.0); MEAN PLATELET VOLUME 9.5 fl (9.4-12.4); PLATELET COUNT,PLT 239 K/mm3 (150-400); RED BLOOD CELL COUNT 4.15 M/mm3 (4.52-5.90); WHITE BLOOD CELL COUNT,WBC 9.47 K/mm3 (3.9-11.3)
[2022-11-19 06:47] LABS: A/G RATIO 0.8 (1-2); ALBUMIN 2.9 g/dl (3.4-5.0); BUN/CREATININE RATIO 18.6 (14-18); C-REACTIVE PROTEIN 5.3 mg/dL (<1.0); CALCIUM 8.3 mg/dL (8.5-10.1); CREATININE 0.7 mg/dL (0.7-1.3); EST CRCL DRUG DOSING (CG) 71.93 mL/min; PROTEIN TOTAL,TP 6.5 g/dl (6.4-8.2)
[2022-11-19 07:00] LABS: INR 1.49; PROTHROMBIN TIME 15.5 SECONDS (9.7-12.0)
[2022-11-19 07:25] VITALS: BP 121/75; PULSE 88
[2022-11-19] MEDS: Magnesium Oxide 400 MG Tab PO SCH (08:45)
[2022-11-19] MEDS: Polyethylene Glycol 3350 Powder 17 GM Packet PO SCH (08:45)
[2022-11-19] MEDS: Metoprolol Succinate 25 MG Tab.ER PO SCH (08:46)
[2022-11-19] MEDS: Aspirin 81 MG Tab.EC PO SCH (08:46)
[2022-11-19] MEDS: atorvaSTATin 20 MG Tab PO SCH (08:46)
[2022-11-19] MEDS ORDERED: cefTRIAXone 2 GM in Sodium Chloride 0.9% 100 ML IV ONE (10:00)
[2022-11-19] MEDS ORDERED: Warfarin 5 MG Tab PO SCH (18:00)
== END 2022-11-19 11:50 | disposition home or self-care (01) | DRG 871 ==
LOC: JD.ED 15:02 → JD.MS 18:22
PROVIDERS: ADMIT Internal Medicine; ATTEND Internal Medicine
PROC: 4A03XR1 Measurement of Arterial Saturation, Peripheral, External Approach (ICD-10-PCS; principal; 2022-11-16)
DX: A41.9 Sepsis, unspecified organism (principal); J18.9 Pneumonia, unspecified organism; J96.01 Acute respiratory failure with hypoxia; I50.30 Unspecified diastolic (congestive) heart failure; I48.20 Chronic atrial fibrillation, unspecified; R65.20 Severe sepsis without septic shock; I25.10 Atherosclerotic heart disease of native coronary artery without angina pectoris; G47.33 Obstructive sleep apnea (adult) (pediatric); E86.0 Dehydration; Z91.030 Bee allergy status; Z20.822 Contact with and (suspected) exposure to COVID-19; Z88.8 Allergy status to other drugs, medicaments and biological substances; I48.91 Unspecified atrial fibrillation; I50.9 Heart failure, unspecified; N40.0 Benign prostatic hyperplasia without lower urinary tract symptoms; Z79.01 Long term (current) use of anticoagulants; Z90.49 Acquired absence of other specified parts of digestive tract; Z98.49 Cataract extraction status, unspecified eye; Z98.890 Other specified postprocedural states; Z99.81 Dependence on supplemental oxygen; Z79.82 Long term (current) use of aspirin; Z79.899 Other long term (current) drug therapy; Z95.5 Presence of coronary angioplasty implant and graft; Z86.73 Personal history of transient ischemic attack (TIA), and cerebral infarction without residual deficits
CPT/HCPCS: 0241U; 36415; 36600; 71045; 71250; 80053; 81001; 82803; 83605; 84484; 85025; 85027; 85379; 85610; 85730; 86140; 87040; 93005; 94640; 94660; 94760; 94761; 96361; 96365; 97161; 99285; 93010; A9270-GY; J0696; J3490; J7030; J7120; J7620-GY

== ENCOUNTER 2024-01-12 18:04 | Emergency (ER) | payer MEDICARE, OTHER ==
[2024-01-12 18:36] VITALS: BP 133/60; PULSE 84
[2024-01-12] MEDS ORDERED: Sodium Chloride 0.9% 10 ML Syringe FLUSH PRN (19:02)
[2024-01-12 19:54] LABS: BASOPHILS ABSOLUTE AUTO 0.1 K/mm3 (0.0-0.2); BASOPHILS PERCENT AUTO 0.5 % (0.0-1.0); EOSINOPHILS ABSOLUTE AUTO 0.1 K/mm3 (0.0-0.4); EOSINOPHILS PERCENT AUTO 0.8 % (0.0-6.0); HEMATOCRIT 43.7 % (42.0-52.0); HEMOGLOBIN 14.1 gm/dl (14.0-18.0); IMMATURE GRAN ABSOLUTE AUTO 0.02 K/mm3 (0.00-0.05); IMMATURE GRAN PERCENT AUTO 0.2 % (0.0-0.4); LYMPHOCYTES ABSOLUTE AUTO 2.2 K/mm3 (1.0-4.8); MEAN CORPUSCULAR HEMOGLOBIN 31.1 pg (28.0-32.0); MEAN CORPUSCULAR HGB CONC 32.3 g/dl (32.0-36.0); MEAN CORPUSCULAR VOLUME 96.3 fl (83.0-99.0); MONOCYTES ABSOLUTE AUTO 1.4 K/mm3 (0.0-0.8); MONOCYTES PERCENT AUTO 14.1 % (0.0-8.0); NEUTROPHILS ABSOLUTE AUTO 6.3 K/mm3 (1.8-7.7); NEUTROPHILS PERCENT AUTO 62.4 % (41.0-71.0); PLATELET COUNT,PLT 237 K/mm3 (150-400); RED BLOOD CELL COUNT 4.54 M/mm3 (4.52-5.90); WHITE BLOOD CELL COUNT,WBC 10.02 K/mm3 (3.9-11.3)
[2024-01-12 20:23] LABS: A/G RATIO 0.9 (1-2); ALBUMIN 3.5 g/dl (3.4-5.0); ANION GAP 12.4 (5-15); BILIRUBIN TOTAL 0.9 mg/dL (0.2-1.0); BUN/CREATININE RATIO 21.1 (14-18); CREATININE 0.9 mg/dL (0.7-1.3); EST CRCL DRUG DOSING (CG) 54.89 mL/min; POTASSIUM,K 4.4 mEq/L (3.5-5.1); PROTEIN TOTAL,TP 7.5 g/dl (6.4-8.2)
[2024-01-12] MEDS: Furosemide 40 MG/4 ML VIAL IVPUSH ONE (21:14)
[2024-01-12] MEDS: Azithromycin 500 MG in Sodium Chloride 0.9% 250 ML IV ONE (21:14)
== END 2024-01-12 22:39 | disposition home or self-care (01) ==
LOC: JD.ED 18:04
DX: J18.9 Pneumonia, unspecified organism (principal); E87.70 Fluid overload, unspecified; I10 Essential (primary) hypertension; Z86.16 Personal history of COVID-19; Z87.891 Personal history of nicotine dependence; Z79.899 Other long term (current) drug therapy; Z91.038 Other insect allergy status
CPT/HCPCS: 36415; 71045; 80053; 83880; 84484; 85025; 87428; 93005; 96365; 96375; 99285; J0456; J1940; J7050

== ENCOUNTER 2024-02-14 16:28 | Inpatient (IN) | payer MEDICARE, OTHER ==
[2024-02-14] MEDS ORDERED: Sodium Chloride 0.9% 10 ML Syringe FLUSH PRN (16:59)
[2024-02-14] MEDS: methylPREDNISolone Sodium Succinate 125 MG/2 ML SDV IVPUSH ONE (17:39)
[2024-02-14 17:47] LABS: HEMATOCRIT 47.9 % (42.0-52.0); HEMOGLOBIN 15.5 gm/dl (14.0-18.0); MEAN CORPUSCULAR HEMOGLOBIN 31.2 pg (28.0-32.0); MEAN CORPUSCULAR HGB CONC 32.4 g/dl (32.0-36.0); MEAN CORPUSCULAR VOLUME 96.4 fl (83.0-99.0); MEAN PLATELET VOLUME 9.9 fl (9.4-12.4); PLATELET COUNT,PLT 233 K/mm3 (150-400); RED BLOOD CELL COUNT 4.97 M/mm3 (4.52-5.90); WHITE BLOOD CELL COUNT,WBC 10.75 K/mm3 (3.9-11.3)
[2024-02-14] MEDS: Albuterol/Ipratropium 3.0-0.5 MG/3 ML Neb Soln NEB ONE (17:47)
[2024-02-14 18:09] LABS: LACTIC ACID 1.7 mmol/L (0.4-2.0)
[2024-02-14] MEDS: cefTRIAXone 2 GM in Sodium Chloride 0.9% 100 ML IV ONE (18:56)
[2024-02-14 19:03] LABS: INR 1.12; PROTHROMBIN TIME 11.8 SECONDS (9.7-12.0)
[2024-02-14 19:19] LABS: A/G RATIO 1.1 (1-2); ALANINE AMINOTRANSFERASE,ALT 34 U/L (16-63); ALBUMIN 3.9 g/dl (3.4-5.0); ALKALINE PHOSPHATASE 107 U/L (46-116); ANION GAP 14.4 (5-15); ASPARTATE AMNIOTRANSFERASE,AST 31 U/L (15-37); BILIRUBIN TOTAL 0.9 mg/dL (0.2-1.0); BLOOD UREA NITROGEN,BUN 19 mg/dL (7-18); BUN/CREATININE RATIO 21.1 (14-18); C-REACTIVE PROTEIN 0.18 mg/dL (<0.30); CALCIUM 9.2 mg/dL (8.5-10.1); CARBON DIOXIDE,CO2 29 mEq/L (21-32); CHLORIDE,CL 105 mEq/L (98-107); CREATININE 0.9 mg/dL (0.7-1.3); EST CRCL DRUG DOSING (CG) 50.21 mL/min; ESTIMATED GFR 82 mL/min (>60); GLUCOSE RANDOM 99 mg/dL (70-99); POTASSIUM,K 4.4 mEq/L (3.5-5.1); PROTEIN TOTAL,TP 7.5 g/dl (6.4-8.2); SODIUM,NA 144 mEq/L (136-145)
[2024-02-14 19:28] LABS: TROPONIN I HIGH SENSITIVITY < 4 pg/mL (<=76)
[2024-02-14 19:55] LABS: BAND PERCENT MAN 0 % (0-10); BASOPHILS PERCENT MAN 0 (0.2-1.2); EOSINOPHILS PERCENT MAN 1 % (0.8-7.0); LYMPHOCYTES % ATYPICAL MANUAL 0 %; LYMPHOCYTES PERCENT MAN 15 % (20-40); MONOCYTES PERCENT MAN 8 % (2-10)
[2024-02-14 19:56] LABS: PLATELET COUNT ESTIMATE ADEQUATE
[2024-02-14 19:58] LABS: OVALOCYTES 1+ SLIGHT; POIKILOCYTOSIS 1+ SLIGHT
[2024-02-14 20:00] LABS: TEARDROP CELLS FEW
[2024-02-14] MEDS ORDERED: Acetaminophen 325 MG Tab PO PRN (23:57)
[2024-02-15 04:54] LABS: BASOPHILS PERCENT AUTO 0.1 % (0.0-1.0); EOSINOPHILS PERCENT AUTO 0.1 % (0.0-6.0); HEMATOCRIT 44.2 % (42.0-52.0); HEMOGLOBIN 14.5 gm/dl (14.0-18.0); IMMATURE GRAN ABSOLUTE AUTO 0.04 K/mm3 (0.00-0.05); IMMATURE GRAN PERCENT AUTO 0.4 % (0.0-0.4); LYMPHOCYTES ABSOLUTE AUTO 1.5 K/mm3 (1.0-4.8); MEAN CORPUSCULAR HEMOGLOBIN 31.3 pg (28.0-32.0); MEAN CORPUSCULAR HGB CONC 32.8 g/dl (32.0-36.0); MEAN CORPUSCULAR VOLUME 95.3 fl (83.0-99.0); MEAN PLATELET VOLUME 9.5 fl (9.4-12.4); MONOCYTES ABSOLUTE AUTO 0.3 K/mm3 (0.0-0.8); MONOCYTES PERCENT AUTO 2.3 % (0.0-8.0); NEUTROPHILS ABSOLUTE AUTO 9.6 K/mm3 (1.8-7.7); NEUTROPHILS PERCENT AUTO 84.1 % (41.0-71.0); PLATELET COUNT,PLT 215 K/mm3 (150-400); RED BLOOD CELL COUNT 4.64 M/mm3 (4.52-5.90); WHITE BLOOD CELL COUNT,WBC 11.39 K/mm3 (3.9-11.3)
[2024-02-15 05:33] LABS: A/G RATIO 0.9 (1-2); ALBUMIN 3.4 g/dl (3.4-5.0); ANION GAP 16.3 (5-15); BILIRUBIN TOTAL 0.7 mg/dL (0.2-1.0); CALCIUM 9.1 mg/dL (8.5-10.1); CREATININE 1.1 mg/dL (0.7-1.3); EST CRCL DRUG DOSING (CG) 41.08 mL/min; PROTEIN TOTAL,TP 7.1 g/dl (6.4-8.2)
[2024-02-15] MEDS: Azithromycin 500 MG in Sodium Chloride 0.9% 250 ML IV SCH (07:53)
[2024-02-15] MEDS: predniSONE 20 MG Tab PO SCH (07:54)
[2024-02-15] MEDS: Albuterol/Ipratropium 3.0-0.5 MG/3 ML Neb Soln NEB PRN (08:46)
[2024-02-15] MEDS: atorvaSTATin 20 MG Tab PO SCH (09:23)
[2024-02-15] MEDS: Apixaban 5 MG Tab PO SCH (09:24)
[2024-02-15] MEDS: Metoprolol Succinate 25 MG Tab.ER PO SCH (09:24)
[2024-02-15 12:01] VITALS: BP 109/90; PULSE 62
[2024-02-15 14:18] LABS: POTASSIUM,K 4.3 mEq/L (3.5-5.1)
[2024-02-15] MEDS ORDERED: cefTRIAXone 2 GM Vial IV SCH (18:00)
[2024-02-15] MEDS ORDERED: cefTRIAXone 2 GM in Sodium Chloride 0.9% 100 ML IV SCH (18:00)
== END 2024-02-15 12:03 | disposition home or self-care (01) | DRG 189 ==
LOC: JD.ED 16:28 → JD.MS 19:26
PROVIDERS: ADMIT Student in an Organized Health Care Education/Training Program; ATTEND Student in an Organized Health Care Education/Training Program
PROC: 5A09357 Assistance with Respiratory Ventilation, Less than 24 Consecutive Hours, Continuous Positive Airway Pressure (ICD-10-PCS; principal; 2024-02-14)
DX: J96.01 Acute respiratory failure with hypoxia (principal); J44.0 Chronic obstructive pulmonary disease with (acute) lower respiratory infection; J18.9 Pneumonia, unspecified organism; I48.91 Unspecified atrial fibrillation; I10 Essential (primary) hypertension; J44.1 Chronic obstructive pulmonary disease with (acute) exacerbation; Z95.5 Presence of coronary angioplasty implant and graft; J98.11 Atelectasis; I48.0 Paroxysmal atrial fibrillation; E78.5 Hyperlipidemia, unspecified; H54.7 Unspecified visual loss; H26.9 Unspecified cataract; F15.90 Other stimulant use, unspecified, uncomplicated; G89.29 Other chronic pain; M54.9 Dorsalgia, unspecified; Z86.16 Personal history of COVID-19; Z98.49 Cataract extraction status, unspecified eye; Z90.89 Acquired absence of other organs; Z98.890 Other specified postprocedural states; Z91.030 Bee allergy status; Z79.02 Long term (current) use of antithrombotics/antiplatelets; Z99.81 Dependence on supplemental oxygen; Z79.01 Long term (current) use of anticoagulants; Z87.01 Personal history of pneumonia (recurrent); Z79.2 Long term (current) use of antibiotics; Z79.899 Other long term (current) drug therapy
CPT/HCPCS: 36415; 71045; 71045-26; 80053; 83605; 83880; 84484; 85007; 85025; 85027; 85610; 86140; 87040; 87428-QW; 93005; 93010; 94640; 94760; 94761; 99222; 99239; 99284; A9270-GY; J0456; J0696; J2919; J7512; J7620-GY

== ENCOUNTER 2024-08-18 20:46 | Emergency (ER) | payer MEDICARE ==
[2024-08-18 21:06] VITALS: BP 124/94; PULSE 77
[2024-08-18] MEDS ORDERED: Sodium Chloride 0.9% 10 ML Syringe FLUSH PRN (21:16)
[2024-08-18 21:29] LABS: BASOPHILS ABSOLUTE AUTO 0.1 K/mm3 (0.0-0.2); BASOPHILS PERCENT AUTO 0.6 % (0.0-1.0); EOSINOPHILS ABSOLUTE AUTO 0.2 K/mm3 (0.0-0.4); EOSINOPHILS PERCENT AUTO 2.4 % (0.0-6.0); IMMATURE GRAN ABSOLUTE AUTO 0.01 K/mm3 (0.00-0.05); IMMATURE GRAN PERCENT AUTO 0.1 % (0.0-0.4); LYMPHOCYTES ABSOLUTE AUTO 2.6 K/mm3 (1.0-4.8); LYMPHOCYTES PERCENT AUTO 34.0 % (24.0-44.0); MEAN PLATELET VOLUME 8.9 fl (9.4-12.4); MONOCYTES ABSOLUTE AUTO 0.8 K/mm3 (0.0-0.8); MONOCYTES PERCENT AUTO 10.6 % (0.0-8.0); NEUTROPHILS ABSOLUTE AUTO 4.1 K/mm3 (1.8-7.7); NEUTROPHILS PERCENT AUTO 52.3 % (41.0-71.0); NRBC ABSOLUTE 0.00 (0.00-0.02); NRBC PERCENT 0.0 % (0.0-0.2); PLATELET COUNT,PLT 312 K/mm3 (150-400); RED BLOOD CELL COUNT 5.15 M/mm3 (4.52-5.90); WHITE BLOOD CELL COUNT,WBC 7.77 K/mm3 (3.9-11.3)
[2024-08-18 21:50] LABS: A/G RATIO 1.0 (1-2); ALANINE AMINOTRANSFERASE,ALT 28.0 U/L (16-63); ASPARTATE AMNIOTRANSFERASE,AST 27.0 U/L (15-37); BILIRUBIN TOTAL 0.8 mg/dL (0.2-1.0); BLOOD UREA NITROGEN,BUN 19.0 mg/dL (7-18); CARBON DIOXIDE,CO2 31.0 mEq/L (21-32); CHLORIDE,CL 105.0 mEq/L (98-107); CREATININE 1.1 mg/dL (0.7-1.3); EST CRCL DRUG DOSING (CG) 44.05 mL/min; ESTIMATED GFR 64.0 mL/min (>60); GLUCOSE RANDOM 131.0 mg/dL (70-99); POTASSIUM,K 3.8 mEq/L (3.5-5.1); PROTEIN TOTAL,TP 7.3 g/dl (6.4-8.2); SODIUM,NA 141.0 mEq/L (136-145)
[2024-08-19 00:36] LABS: APPEARANCE,URINE CLEAR (Clear); GLUCOSE,URINE NEGATIVE (Negative); OCCULT BLOOD,URINE NEGATIVE (Negative)
[2024-08-19 01:13] LABS: EPITHELIAL CELLS,URINE 0-5 /hpf (0-5)
== END 2024-08-19 02:30 | disposition left against medical advice (07) ==
LOC: JD.ED 20:46
DX: M54.50 Low back pain, unspecified (principal); I48.91 Unspecified atrial fibrillation; I25.10 Atherosclerotic heart disease of native coronary artery without angina pectoris; I50.9 Heart failure, unspecified; J44.9 Chronic obstructive pulmonary disease, unspecified; Z86.16 Personal history of COVID-19; Z79.01 Long term (current) use of anticoagulants; Z79.899 Other long term (current) drug therapy; Z53.29 Procedure and treatment not carried out because of patient's decision for other reasons
CPT/HCPCS: 36415; 72131; 72131-26; 72192; 72192-26; 80053; 81001; 85025; 93005; 96374; 99283-25; J1171